=== PATIENT | female | born 1980 | race Caucasian/White ===

== ENCOUNTER → 2018-03-13 09:59 | Outpatient (CLI) | payer OTHER, SELFPAY ==
[2018-03-13 10:26] LABS: Hemoglobin A1C% w Est Avg Glu 8.8 % (4.0-6.0)
[2018-03-13 10:39] LABS: Glucose 152 mg/dL (70-100)
== END ==
PROVIDERS: Visit Provider Family Medicine
DX: R73.01 Impaired fasting glucose (principal)
CPT/HCPCS: 36415; 82947; 83036

== ENCOUNTER → 2018-07-31 13:00 | Outpatient (CLI) | payer OTHER, SELFPAY | DX: Z23 Encounter for immunization (principal) | CPT/HCPCS: 90471; 90686 ==

== ENCOUNTER → 2018-10-05 16:42 | Outpatient (CLI) | payer OTHER, SELFPAY | PROVIDERS: Visit Provider Family Medicine | DX: E11.9 Type 2 diabetes mellitus without complications (principal) | CPT/HCPCS: 36415; 83036 ==

== ENCOUNTER → 2019-06-12 12:50 | Outpatient (CLI) | payer OTHER, MEDICAID, SELFPAY | PROVIDERS: PCP Family Medicine; Visit Provider Physician Assistant | DX: J02.9 Acute pharyngitis, unspecified (principal) | CPT/HCPCS: 87070 ==

== ENCOUNTER → 2019-08-14 11:21 | Outpatient (CLI) | payer OTHER, MEDICAID, SELFPAY ==
[2019-08-14 11:57] LABS: Add Manual Diff / Slide Review NO; Basophils Absolute Auto 100 /uL (0-100); Basophils Percent Auto 0.7 % (0-2); Eosinophils Absolute Auto 100 /uL (0-450); Eosinophils Percent Auto 1.3 % (2-4); Hematocrit 39.9 % (36-46); Hemoglobin 13.4 g/dL (12.0-16.0); Lymphocytes Absolute Auto 2500 /uL (1100-4500); Lymphocytes Percent Auto 25.2 % (25-40); Mean Corpuscular HGB Conc 33.6 % (30-36); Mean Corpuscular Hemoglobin 30.4 PG (26-34); Mean Corpuscular Volume 90.4 fL (80-100); Monocytes Absolute Auto 700 /uL (0-900); Monocytes Percent Auto 6.7 % (3-14); Neutrophils Absolute Auto 6700 /uL (1500-7000); Neutrophils Percent Auto 66.1 % (50-75); Platelet Count 272 X10^3/uL (150-400); Red Blood Cell Count 4.41 X10^6/uL (4.0-5.2); Red Cell Distribution Width 13.9 % (11.6-14.8); White Blood Cell Count 10.1 X10^3/uL (4.5-11.0)
[2019-08-14 12:09] LABS: Hemoglobin A1C% w Est Avg Glu 7.8 % (4.0-6.0)
[2019-08-14 12:15] LABS: Alanine Aminotransferase 27 IU/L (<35); Albumin 4.2 g/dL (3.5-5.0); Albumin Globulin Ratio 1.4 (1.0-2.8); Alkaline Phosphatase 66 U/L (38-126); Aspartate Aminotransferase 44 IU/L (14-36); BUN Creatinine Ratio 13.3 (6-22); Bilirubin Total 0.4 mg/dL (0.2-1.3); Blood Urea Nitrogen 8 mg/dL (7-17); Calcium 9.6 mg/dL (8.4-10.2); Carbon Dioxide 24 mmol/L (22-32); Chloride 105 mmol/L (98-107); Cholesterol 199 mg/dL (140-199); Estimated Glomerular Filt Rate > 60.0 mL/min (>60); Globulin 3.1 g/dL (1.7-4.1); Glucose 162 mg/dL (70-100); HDL Cholesterol 37 mg/dL (40-60); HEMOLYSIS < 15 (0-50); LDL Cholesterol Calculated 115 mg/dL (<100); Sodium 139 mmol/L (137-145); Total Protein 7.3 g/dL (6.3-8.2); Triglycerides 236 mg/dL (35-150)
[2019-08-14 14:00] LABS: TSH w/ Reflex to FT4 3.76 uIU/mL (0.47-4.68)
== END ==
PROVIDERS: PCP Family Medicine; Visit Provider Family Medicine
DX: Z13.6 Encounter for screening for cardiovascular disorders (principal); E11.9 Type 2 diabetes mellitus without complications
CPT/HCPCS: 36415; 80053; 80061; 83036; 84443; 85025

== ENCOUNTER → 2019-11-23 14:05 | Outpatient (CLI) | payer OTHER, MEDICAID, SELFPAY ==
[2019-11-23 14:44] LABS: Hemoglobin A1C% w Est Avg Glu 7.4 % (4.0-6.0)
== END ==
PROVIDERS: PCP Family Medicine; Referring Provider Family Medicine; Visit Provider Family Medicine
DX: E11.9 Type 2 diabetes mellitus without complications (principal)
CPT/HCPCS: 36415; 83036

== ENCOUNTER → 2020-06-26 | Outpatient (CLI) | payer OTHER, MEDICAID, SELFPAY | PROVIDERS: PCP Family Medicine; Referring Provider Internal Medicine; Visit Provider Internal Medicine | DX: Z23 Encounter for immunization (principal) | CPT/HCPCS: 90471; 90686 ==

== ENCOUNTER → 2020-10-01 12:21 | Outpatient (CLI) | payer OTHER, MEDICAID, SELFPAY ==
[2020-10-01] MEDS: COVID-19 VACC(MODERNA-1)/PF 100 MCG/0.5 ML VIAL IM (12:31)
== END ==
PROVIDERS: PCP Family Medicine; Visit Provider Internal Medicine
DX: Z23 Encounter for immunization (principal)
CPT/HCPCS: 0011A; 91301

== ENCOUNTER → 2020-10-02 10:07 | Outpatient (CLI) | payer OTHER, MEDICAID, SELFPAY ==
[2020-10-02 11:28] LABS: Add Manual Diff / Slide Review NO; Basophils Absolute Auto 100 /uL (0-100); Basophils Percent Auto 0.5 % (0-2); Eosinophils Absolute Auto 200 /uL (0-450); Hematocrit 39.9 % (36-46); Hemoglobin 13.3 g/dL (12.0-16.0); Lymphocytes Absolute Auto 3400 /uL (1100-4500); Lymphocytes Percent Auto 27.6 % (25-40); Mean Corpuscular HGB Conc 33.4 % (30-36); Mean Corpuscular Hemoglobin 29.9 PG (26-34); Mean Corpuscular Volume 89.5 fL (80-100); Monocytes Absolute Auto 800 /uL (0-900); Monocytes Percent Auto 6.6 % (3-14); Neutrophils Absolute Auto 7700 /uL (1500-7000); Neutrophils Percent Auto 63.3 % (50-75); Platelet Count 272 X10^3/uL (150-400); Red Blood Cell Count 4.46 X10^6/uL (4.0-5.2); Red Cell Distribution Width 13.1 % (11.6-14.8); White Blood Cell Count 12.1 X10^3/uL (4.5-11.0)
[2020-10-02 11:40] LABS: Hemoglobin A1C% w Est Avg Glu 7.3 % (4.0-6.0)
[2020-10-02 12:37] LABS: BUN Creatinine Ratio 16.3 (6-22); Blood Urea Nitrogen 8 mg/dL (7-17); Calcium 9.1 mg/dL (8.4-10.2); Carbon Dioxide 24 mmol/L (22-32); Chloride 106 mmol/L (98-107); Cholesterol 191 mg/dL (140-199); Estimated Glomerular Filt Rate > 60.0 mL/min (>60); Glucose 151 mg/dL (70-100); HDL Cholesterol 48 mg/dL (40-60); HEMOLYSIS < 15 (0-50); LDL Cholesterol Calculated 99 mg/dL (<100); Potassium 4.2 mmol/L (3.4-5.1); Sodium 136 mmol/L (137-145); Triglycerides 221 mg/dL (35-150)
== END ==
PROVIDERS: PCP Family Medicine; Referring Provider Family Medicine; Visit Provider Family Medicine
DX: E11.9 Type 2 diabetes mellitus without complications (principal); E78.5 Hyperlipidemia, unspecified
CPT/HCPCS: 36415; 80048; 80061; 83036; 85025

== ENCOUNTER → 2020-10-28 09:48 | Outpatient (CLI) | payer OTHER, MEDICAID, SELFPAY ==
[2020-10-28] MEDS: COVID-19 VACC #2, MRNA(MOD) 100 MCG/0.5 ML VIAL IM (09:51)
== END ==
PROVIDERS: PCP Family Medicine; Visit Provider Internal Medicine
DX: Z23 Encounter for immunization (principal)
CPT/HCPCS: 0012A; 91301

== ENCOUNTER → 2020-12-03 15:27 | Outpatient (CLI) | payer OTHER, MEDICAID, SELFPAY ==
--- NOTE | 2020-12-03 15:29 | DI.RAD.S_ITS ---
PROCEDURE: XR KNEE LT 3V INDICATIONS: knee pain TECHNIQUE: 3 views of the knee were acquired. COMPARISON: [facility], , KNEE 1 VIEW BILATERAL, 10/25/2014, 14:33. FINDINGS: Bones: No fractures or dislocations. No suspicious bony lesions. Mild medial compartment narrowing. No erosions or periarticular osteophytes. Overall appearance is similar compared to 2014. Soft tissues: Minimal to mild joint effusion. No suspicious soft tissue calcifications. IMPRESSION: Stable appearance of medial early arthritic change. Dictated by: Aga Monge M.D. on 12/03/2020 at 17:16 Approved by: Aga Monge M.D. on 12/03/2020 at 17:16
== END ==
PROVIDERS: PCP Family Medicine; Referring Provider Family Medicine; Visit Provider Family Medicine
DX: M25.562 Pain in left knee (principal)
CPT/HCPCS: 73562

== ENCOUNTER 2021-01-05 00:04 | Emergency (ER) | payer OTHER, MEDICAID, SELFPAY ==
--- NOTE | 2021-01-05 00:07 | ED.GENADULT ---
HPI - General Adult General Chief complaint: Extremity Injury, Lower Stated complaint: left knee pain hurts to walk Time Seen by Provider: 01/05/21 00:05 Source: patient Mode of arrival: Ambulatory Limitations: no limitations History of Present Illness HPI narrative: Patient is a 40-year-old female with approximately 1 your left knee pain. There was no specific injury caused to start her 1 year ago what was [place] She has seen her primary doctor and has had x-rays in the past for this. She also had a steroid injection 1 month ago by her primary doctor. She is scheduled to see physical therapy on Tuesday of this week for the 1st time. She is here because she states that the pain in her knee has been worsening over the past several weeks. He is difficult for her to sleep at night. She has tried use crutches, Christopher bandages, lidocaine patches, Tylenol, ibuprofen other modalities without any improvement of her symptoms. Related Data Home Medications Medication Instructions Recorded Confirmed CA PANTOTHENATE/FOLIC ACID/VIT 1 tab PO QDAY #0 03/06/13 12/10/20 (MULTIVITAMIN) Calcium Carbonate/Vitamin D 1 tab PO Q DAY #0 03/06/13 12/10/20 (#CALCITAB 600 + VITAMIN D 600 MG-200 IU) LACTOBACILLUS ACIDOPH (Bacid) 1 tab PO QDAY #0 03/06/13 12/10/20 [fish oil] #0 06/27/17 12/10/20 [magnesium] #0 06/27/17 12/10/20 ascorbic acid 125 mg-collagen, cap PO 12/03/20 12/10/20 hydrolyzed 740 mg capsule glucosam 750 mg-chondroi 100 tab PO 12/03/20 12/10/20 mg-hyalur 1.65 mg-CF borate 108 mg tablet Previous Rx's Medication Instructions Recorded blood-glucose meter #1 each 03/13/18 blood sugar diagnostic #50 each 05/01/18 lancets 33 gauge #100 each 06/15/18 levonorgestrel 0.15 mg-ethinyl 1 tab PO DAILY #112 tab 12/17/19 estradiol 0.03 mg tablet metformin 500 mg tablet,extended 1,000 mg PO QPM #60 tab 08/11/20 release 24 hr glyburide 5 mg tablet 5 mg PO BID #60 tab 09/22/20 citalopram 20 mg tablet 30 mg PO QDAY #45 tab 01/02/21 tramadol [Ultram] 50 mg PO Q6H PRN #10 tab 01/05/21 Allergies Allergy/AdvReac Type Severity Reaction Status Date / Time clindamycin [CLINDAMYCIN] Allergy Unknown Verified 01/05/21 00:12 sulfamethoxazole Allergy Unknown Verified 01/05/21 00:12 [From ] trimethoprim [From ] Allergy Unknown Verified 01/05/21 00:12 Review of Systems Constitutional Constitutional: Denies fever(s) and Denies headache(s) ENT Ears, Nose, Mouth, and Throat: Denies headache(s) Cardiovascular Cardiovascular: Denies chest pain and Denies dyspnea Respiratory Respiratory: Denies dyspnea Gastrointestinal Gastrointestinal: Denies abdominal pain Musculoskeletal Musculoskeletal: Denies tingling Comments: Left knee pain Integumentary/Breasts Skin/Breast: Denies rash Neurologic Neurologic: Denies headache(s) and Denies tingling Hematologic/Lymphatic On Anticoagulants: No Patient History Medical History Anxiety IBS (irritable bowel syndrome) Surgical History Status post appendectomy (1996) Status post delivery (1997) Status post delivery (2001) Status post cholecystectomy (1997) Family History Father CAD (coronary artery disease) Mother Lung cancer Social History marital status: Smoking Status: Never smoker alcohol intake: current substance use type: does not use Smoking Status: Never smoker Exam Initial Vital Signs Initial Vital Signs: Vital Signs Temperature 97.1 F L 01/05/21 00:12 Pulse Rate 85 01/05/21 00:12 Respiratory Rate 24 01/05/21 00:12 Blood Pressure 180/86 H 01/05/21 00:12 Pulse Oximetry 98 01/05/21 00:12 Const General: comfortable Skin Lesions: no lesions Rashes: no rashes Extrem General: capillary refill normal and No edema Left lower extremity: normal capillary refill and knee Details: normal to inspection and tenderness; no swelling and no deformity; no edema and joint enlargement noted Course Orders Ordered: Discontinued Medications Tramadol HCl (Tramadol 50 Mg Prepack) 1 bottle MISC SEEINSTR ONE Stop: 01/05/21 00:19 Last Admin: 01/05/21 00:24 Dose: 1 bottle Documented by: Vital Signs Vital signs: Vital Signs - 8 hr 01/05/21 00:12 Temperature 97.1 F L Pulse Rate 85 Respiratory Rate 24 Blood Pressure 180/86 H Pulse Oximetry 98 Medical Decision Making [facility] Narrative Medical decision making narrative: Unfortunately little more we can do in the emergency department except try to control her symptoms. I have low suspicion for new fractures. Low suspicion for infection, low suspicion for dislocation. Low suspicion for other inflammation such as gout all of this based on her history and physical exam. Sent home with Ultram for her to use when the symptoms are worsening. Informed her to contact her primary doctor for follow-up and also to keep her appointment with physical therapy later this week. She was given return precautions and follow-up instructions. She expressed understanding and agreement. Discharge Plan Departure Patient Disposition: Home Clinical Impression: Chronic knee pain Qualifiers: Laterality: left Qualified Code(s): M25.562 - Pain in left knee Instructions: How To Perform RICE (Rest, Ice, Compress, Elevate), DI for Patellofemoral Pain Syndrome-Adult, DI for Knee Pain Activity Restrictions/Additional Instructions: Recommend that you keep your appointment with physical therapy starting this week. Also recommend that you may contact with your primary doctor to schedule follow-up appointment it is if her symptoms do not improve you could potentially need further evaluation to include MRI. Prescriptions: New tramadol [Ultram] 50 mg tablet 50 mg PO Q6H PRN (Reason: pain) Qty: 10 RF: 0 No Action Move Free Joint Health 750 mg-100 mg- 1.65 mg-108 mg tablet PO RF: 0 Collagen Plus Vitamin C 125-740 mg capsule PO RF: 0 CA PANTOTHENATE/FOLIC ACID/VIT (MULTIVITAMIN) 1 tab PO QDAY Qty: 0 RF: 0 LACTOBACILLUS ACIDOPH (Bacid) 1 tab PO QDAY Qty: 0 RF: 0 Calcium Carbonate/Vitamin D (#CALCITAB 600 + VITAMIN D 600 MG-200 IU) 1 tab PO Q DAY Qty: 0 RF: 0 [fish oil] Qty: 0 RF: 0 [magnesium] Qty: 0 RF: 0 (DME) blood sugar diagnostic [Blood Glucose Test] strip See Dose Instructions .ROUTE .MEDSUPPLY Qty: 50 RF: 0 (DME) lancets 33 gauge misc See Dose Instructions .ROUTE .MEDSUPPLY Qty: 100 RF: 5 levonorgestrel-ethinyl estrad [Levora-28] 0.15-0.03 mg tablet 1 tab PO DAILY Qty: 112 RF: 3 metformin 500 mg tablet extended release 24 hr 1,000 mg PO QPM Qty: 60 RF: 11 glyburide 5 mg tablet 5 mg PO BID Qty: 60 RF: 11 citalopram [Celexa] 20 mg tablet 30 mg PO QDAY Qty: 45 RF: 11 (DME) blood-glucose meter [Blood Glucose Monitoring] kit See Dose Instructions .ROUTE .MEDSUPPLY Qty: 1 RF: 0 Referrals: Sahil Vieyra MD [Primary Care Provider] -
[2021-01-05 00:12] VITALS: BP 180/86; PULSE 85; RESP 24; TEMP 36.2; O2SAT 98; BMI 50.1
[2021-01-05] MEDS: TRAMADOL 50 MG PREPACK 1 BOTTLE MISC (00:24)
== END 2021-01-05 00:27 | disposition home or self-care (01) ==
PROVIDERS: Emergency Provider Emergency Medicine; Family Provider Family Medicine; PCP Family Medicine
DX: M25.562 Pain in left knee (principal)
CPT/HCPCS: 99281; 99283

== ENCOUNTER 2021-02-26 15:15 | Outpatient (RCR) | payer OTHER, MEDICAID, SELFPAY ==
--- NOTE | 2021-01-07 16:00 | PT.OPPOC ---
Physical, Occupational & Speech Therapy At [facility] Current Diagnoses Other meniscus derangements, unspecified medial meniscus, left knee (01/07/21) Pain in left knee (01/07/21) Stiffness of left knee, not elsewhere classified (01/07/21) Visit Care Team Role Provider Type Sahil Vieyra MD Attending Provider Physician Family Provider Primary Care Provider Referring Provider Specialty: Family Practice Address: [address] [place] [address], [id number] Email: [email or web address] Plan Of Care PT-OP-T Assessment and Plan Start: 01/07/21 17:50 Freq: Status: Active Protocol: Document 01/07/21 15:15 DCW (Rec: 01/09/21 08:37 DCW [id number]) Physical Therapy Assessment Rehab Potential Rehabilitation Potential Fair Evaluation Complexity Number of Personal Factors/Comorbidities 1-2 Number of Body Systems Impaired 3 Clinical Presentation at Evaluation Evolving Impairments Impairments Activity Tolerance,Functional Activities,Functional Mobility ,Gait,Pain,ROM,Soft Tissue Mobility,Strength Goals Three Impairment Pt unable to participating in her usual physical activity of hiking [facility] Goal (LTG) Pt to report ability to hike [place] with no increased knee pain LTG Duration 03/09/21 Two Impairment Knee pain interrupts patient's sleep Intake Clerk Goal (LTG) Pt to sleep through the night for one week straight with no knee pain LTG Duration 03/09/21 One Impairment Pt does not have an appropriate home exercise program Short Term Goal (STG) Pt to be independent and compliant with an appropriate HEP STG Duration 02/06/21 Assessment Summary Assessment Pt presents with signs and symptoms that may be suggestive of left medial meniscus derangement. Pt has positive special testing for meniscus involvement, including Apprehension test, Holger test, and Apley's compression, and Bounce home test. Pt may benefit from skilled therapy focusing on strengthening to improve knee stability, as well as flexibility, pain-control modalities, and STM. If pt does not show improvement over the next 4-6 weeks, may want to consider MRI to rule in or rule out meniscal damage. Physical Therapy Plan Frequency and Duration Frequency of Treatment 2x/Week Duration of Treatment Two months Plan of Care Start Date 01/07/21 Plan of Care End Date 03/09/21 Therapeutic Interventions Therapeutic Interventions Aquatic Therapy,Balance Training,Gait Training,Home Exercise Program,Manual Therapy,Patient/Caregiver Education,Self-Care/Home Management,Soft Tissue Mobilization,Therapeutic Exercises Modalities Cold Pack/Ice Massage,Electric Stimulation,Hot Packs, Ultrasound Next Visit Focus/Plan Next Note Type Treatment Note Next Visit Plan Knee strengthening, pain- control modalities, STM Plan of Care Dates Plan of Care Start Date 01/07/21 Plan of Care End Date 03/09/21 Electronically Signed by: Osman Byrd, PT 01/09/21 0839 Please Sign and Return: I have reviewed this Plan of Care and certify that the skilled therapy services above are required to meet the patient?s needs. Physician Signature Date Printed Name and Credentials Clinical Instructor Signature Printed Name and Credentials
--- NOTE | 2021-01-07 16:00 | PT.OIE ---
Current Diagnoses Other meniscus derangements, unspecified medial meniscus, left knee (01/07/21) Pain in left knee (01/07/21) Stiffness of left knee, not elsewhere classified (01/07/21) Past Medical History (Last Reviewed 01/05/21 @ 00:43 by Ravi Gupta DO) Anxiety IBS (irritable bowel syndrome) Past Surgical History (Last Reviewed 03/13/18 @ 15:52 by Melonie Kaiser LPN) Status post appendectomy (1996) Status post delivery (1997) Status post delivery (2001) Status post cholecystectomy (1997) Visit Care Team Role Provider Type Sahil Vieyra MD Attending Provider Physician Family Provider Primary Care Provider Referring Provider Specialty: Family Practice Address: [address] [place] [address] Email: [email or web address] Physical Therapy Initial Evaluation PT-OP-A Visit Information Start: 01/07/21 17:50 Freq: Status: Active Protocol: Document 01/07/21 15:15 DCW (Rec: 01/07/21 17:51 DCW [id number]) Out-Patient Physical Therapy Visit Information Visit Information Visit Type Initial Evaluation Visit Start Time 15:15 Visit Stop Time 16:00 Total Visit Minutes 45 Visit Number 1 Number of COPER HAND Visits 0 Evaluation Information Evaluation Date 01/07/21 PT-OP-B Current Condition Start: 01/07/21 17:50 Freq: Status: Active Protocol: Document 01/07/21 15:15 DCW (Rec: 01/08/21 15:08 DCW [id number]) Current Condition History of Current Condition Onset Date 04/07/20 Current Complaints left knee pain, stiffness History of Current Condition Pt is a 40 year old female presenting with a nine month history of left knee pain. Pt reports last March, she [place], and her knee just suddenly began to hurt. Notes she was unable to put any weight on it, and couldn't take and normal steps. Over the next few months, the pain just varied a lot, some good days, some bad, until she finally decided to get it looked at two months ago. Pt has been using rest, ice, compression, and elevation to help reduce her pain, and she had to cancel an upcoming hiking trip that she was really looking forward to. Two days ago, pt notes the pain was so bad it was interrupting her sleep, and she had to go to the emergency department. Admits today is a good day. Pt is very specific in that the worst pain is located directly at the joint line medial of her patella. PT-OP-C Subjective Start: 01/07/21 17:50 Freq: Status: Active Protocol: Document 01/07/21 15:15 DCW (Rec: 01/07/21 17:54 DCW [id number]) OP-PT Subjective Patient Comments Patient Comments Itkept getting better and worse over time, but finally two months ago, I just decided 'this really sucks,' and decided I needed to go in and get it checked out. Patient Questionnaires Lower Extremity Functional Scale LEFS Score 31/80 = 38.75 LEFS Impairment 60 to 79% Impaired (Score 17- 31) OP-PT Pain Assessment Location Left Knee Intensity 5 Scale Used Numeric (0 - 10) Variations/Patterns At worst up to 8/10 PT-OP-F Manual Assessment Start: 01/07/21 17:50 Freq: Status: Active Protocol: Document 01/07/21 15:15 DCW (Rec: 01/08/21 17:43 DCW [id number]) Manual Assessments Soft Tissue Assessment Soft Tissue Mobility Assessment Tenderness 3/4: Wincing and withdraw along medial joint line Joint Mobility Assessment Joint Mobility Assessment Pt shows some mild increased laxity bilaterally with varus/ valgus stress. PT-OP-K Range of Motion Start: 01/07/21 17:50 Freq: Status: Active Protocol: Document 01/07/21 15:15 DCW (Rec: 01/08/21 17:43 DCW [id number]) Knee Goniometric Range of Motion Knee Right Knee ROM WFL Yes Patient Position Supine Flexion Active (degrees) 125 Extension Active (degrees) 0 Left Knee ROM WFL No Patient Position Supine Flexion Active (degrees) 110 Extension Active (degrees) 0 PT-OP-L Special Tests Start: 01/07/21 17:50 Freq: Status: Active Protocol: Document 01/07/21 15:15 DCW (Rec: 01/08/21 17:46 DCW [id number]) Special Tests Knee Special Tests Varus- 0 Degrees Test Results Mild increased laxity bilaterally Valgus- 0 Degrees Test Results Mild increased laxity bilaterally Posterior Draw Test Results Negative Patellar Grind Test Test Results Negative Patella Tap Test Results Negative Holegr Test Test Results Positive Left Bounce Home Test Results Positive Left Apprehension Test Test Results Positive Left Apley's Compression Test Results Strongly Positive Left Anterior Draw Test Results Negative PT-OP-M Strength Start: 01/07/21 17:50 Freq: Status: Active Protocol: Document 01/07/21 15:15 DCW (Rec: 01/08/21 17:46 DCW [id number]) Knee Strength Knee Manual Muscle Testing Left Flexion (S2) 4+ Good+ Extension (L3) 4+ Good+ Comments Pt displayed pain reaction with resisted flexion and extension for MMT PT-OP-T Assessment and Plan Start: 01/07/21 17:50 Freq: Status: Active Protocol: Document 01/07/21 15:15 DCW (Rec: 01/09/21 08:37 DCW [id number]) Physical Therapy Assessment Rehab Potential Rehabilitation Potential Fair Evaluation Complexity Number of Personal Factors/Comorbidities 1-2 Number of Body Systems Impaired 3 Clinical Presentation at Evaluation Evolving Impairments Impairments Activity Tolerance,Functional Activities,Functional Mobility ,Gait,Pain,ROM,Soft Tissue Mobility,Strength Goals Three Impairment Pt unable to participating in her usual physical activity of hiking Assisted Goal (LTG) Pt to report ability to hike [place] with no increased knee pain LTG Duration 03/09/21 Two Impairment Knee pain interrupts patient's sleep Assisted Goal (LTG) Pt to sleep through the night for one week straight with no knee pain LTG Duration 03/09/21 One Impairment Pt does not have an appropriate home exercise program Short Term Goal (STG) Pt to be independent and compliant with an appropriate HEP STG Duration 02/06/21 Assessment Summary Assessment Pt presents with signs and symptoms that may be suggestive of left medial meniscus derangement. Pt has positive special testing for meniscus involvement, including Apprehension test, Holger test, and Apley's compression, and Bounce home test. Pt may benefit from skilled therapy focusing on strengthening to improve knee stability, as well as flexibility, pain-control modalities, and STM. If pt does not show improvement over the next 4-6 weeks, may want to consider MRI to rule in or rule out meniscal damage. Physical Therapy Plan Frequency and Duration Frequency of Treatment 2x/Week Duration of Treatment Two months Plan of Care Start Date 01/07/21 Plan of Care End Date 03/09/21 Therapeutic Interventions Therapeutic Interventions Aquatic Therapy,Balance Training,Gait Training,Home Exercise Program,Manual Therapy,Patient/Caregiver Education,Self-Care/Home Management,Soft Tissue Mobilization,Therapeutic Exercises Modalities Cold Pack/Ice Massage,Electric Stimulation,Hot Packs, Ultrasound Next Visit Focus/Plan Next Note Type Treatment Note Next Visit Plan Knee strengthening, pain- control modalities, STM
--- NOTE | 2021-01-12 17:32 | PT.OTN ---
Current Diagnoses Other meniscus derangements, unspecified medial meniscus, left knee (01/12/21) Pain in left knee (01/12/21) Stiffness of left knee, not elsewhere classified (01/12/21) Physical Therapy Treatment Note PT-OP-A Visit Information Start: 01/07/21 17:50 Freq: Status: Active Protocol: Document 01/12/21 16:49 DCW (Rec: 01/12/21 17:32 DCW [id number]) Out-Patient Physical Therapy Visit Information Visit Information Visit Type Treatment Note Visit Start Time 16:49 Visit Stop Time 17:30 Total Visit Minutes 41 Visit Number 2 Number of CUSTODIAL SUPERVISOR Visits 0 Evaluation Information Evaluation Date 01/07/21 PT-OP-B Current Condition Start: 01/07/21 17:50 Freq: Status: Active Protocol: Document 01/07/21 15:15 DCW (Rec: 01/08/21 15:08 DCW [id number]) Current Condition History of Current Condition Onset Date 04/07/20 Current Complaints left knee pain, stiffness History of Current Condition Pt is a 40 year old female presenting with a nine month history of left knee pain. Pt reports last March, she was walking [place] the [place], and her knee just suddenly began to hurt. Notes she was unable to put any weight on it, and couldn't take and normal steps. Over the next few months, the pain just varied a lot, some good days, some bad, until she finally decided to get it looked at two months ago. Pt has been using rest, ice, compression, and elevation to help reduce her pain, and she had to cancel an upcoming hiking trip that she was really looking forward to. Two days ago, pt notes the pain was so bad it was interrupting her sleep, and she had to go to the emergency department. Admits today is a good day. Pt is very specific in that the worst pain is located directly at the joint line medial of her patella. PT-OP-C Subjective Start: 01/07/21 17:50 Freq: Status: Active Protocol: Document 01/12/21 16:49 DCW (Rec: 01/12/21 17:32 DCW [id number]) OP-PT Subjective Patient Comments Patient Comments Today is another good day. This weekend was not good, so I expected today to be not good, but it feels alright. PT-OP-F Manual Assessment Start: 01/07/21 17:50 Freq: Status: Active Protocol: Document 01/07/21 15:15 DCW (Rec: 01/08/21 17:43 DCW [id number]) Manual Assessments Soft Tissue Assessment Soft Tissue Mobility Assessment Tenderness 3/4: Wincing and withdraw along medial joint line Joint Mobility Assessment Joint Mobility Assessment Pt shows some mild increased laxity bilaterally with varus/ valgus stress. PT-OP-K Range of Motion Start: 01/07/21 17:50 Freq: Status: Active Protocol: Document 01/07/21 15:15 DCW (Rec: 01/08/21 17:43 DCW [id number]) Knee Goniometric Range of Motion Knee Right Knee ROM WFL Yes Patient Position Supine Flexion Active (degrees) 125 Extension Active (degrees) 0 Left Knee ROM WFL No Patient Position Supine Flexion Active (degrees) 110 Extension Active (degrees) 0 PT-OP-L Special Tests Start: 01/07/21 17:50 Freq: Status: Active Protocol: Document 01/07/21 15:15 DCW (Rec: 01/08/21 17:46 DCW [id number]) Special Tests Knee Special Tests Varus- 0 Degrees Test Results Mild increased laxity bilaterally Valgus- 0 Degrees Test Results Mild increased laxity bilaterally Posterior Draw Test Results Negative Patellar Grind Test Test Results Negative Patella Tap Test Results Negative Holger Test Test Results Positive Left Bounce Home Test Results Positive Left Apprehension Test Test Results Positive Left Apley's Compression Test Results Strongly Positive Left Anterior Draw Test Results Negative PT-OP-M Strength Start: 01/07/21 17:50 Freq: Status: Active Protocol: Document 01/07/21 15:15 DCW (Rec: 01/08/21 17:46 DCW [id number]) Knee Strength Knee Manual Muscle Testing Left Flexion (S2) 4+ Good+ Extension (L3) 4+ Good+ Comments Pt displayed pain reaction with resisted flexion and extension for MMT PT-OP-Q Treatments Start: 01/07/21 17:50 Freq: Status: Active Protocol: Document 01/12/21 16:49 DCW (Rec: 01/12/21 17:32 DCW [id number]) Cardio Equipment Recumbent Elliptical (Biodex) Duration (Minutes) 1 Resistance 3 Seat Position 5 Other Stopped d/t knee pain Gym Equipment Shuttle Recovery Unilateral Squats Resistance 25# Bilateral Squats Resistance 50#->62# Therapeutic Exercises Supine Exercises 1 Supine Exercise Name SLR Side left Reps/Minutes x10 Sitting Exercises 2 Sitting Exercise Name Hamstring curls Side bilateral Resistance Lv 2 Equipment Used T-band 1 Sitting Exercise Name LAQ Side bilateral Resistance 5# Standing Exercises 2 Standing Exercise Name Step lunge Side bilateral 1 Standing Exercise Name TKE Side bilateral Resistance Lv 2 Equipment Used T-band Manual Therapy Treatment Taping 1 Body Location Medial knee Treatment Focus Joint stabilization Type of Tape Kinesio Tape Comments Star pattern PT-OP-T Assessment and Plan Start: 01/07/21 17:50 Freq: Status: Active Protocol: Document 01/12/21 16:49 DCW (Rec: 01/12/21 17:32 DCW [id number]) Physical Therapy Assessment Impairments Impairments Activity Tolerance,Functional Activities,Functional Mobility ,Gait,Pain,ROM,Soft Tissue Mobility,Strength Goals Three Impairment Pt unable to participating in her usual physical activity of hiking Workforce Development Specialist Goal (LTG) Pt to report ability to hike [place] with no increased knee pain LTG Duration 03/09/21 Two Impairment Knee pain interrupts patient's sleep Workforce Development Specialist Goal (LTG) Pt to sleep through the night for one week straight with no knee pain LTG Duration 03/09/21 One Impairment Pt does not have an appropriate home exercise program Short Term Goal (STG) Pt to be independent and compliant with an appropriate HEP STG Duration 02/06/21 Assessment Summary Assessment Pt had to stop a few different exercise attempts due to knee popping/pain. Fairly restricted with mobility, having some ongoing pain with most mobility. Trial of k-tape to help support medial knee. Physical Therapy Plan Frequency and Duration Frequency of Treatment 2x/Week Duration of Treatment Two months Plan of Care Start Date 01/07/21 Plan of Care End Date 03/09/21 Therapeutic Interventions Therapeutic Interventions Aquatic Therapy,Balance Training,Gait Training,Home Exercise Program,Manual Therapy,Patient/Caregiver Education,Self-Care/Home Management,Soft Tissue Mobilization,Therapeutic Exercises Modalities Cold Pack/Ice Massage,Electric Stimulation,Hot Packs, Ultrasound Next Visit Focus/Plan Next Note Type Treatment Note Next Visit Plan Knee strengthening, pain- control modalities, STM
--- NOTE | 2021-01-14 15:57 | PT.OTN ---
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 Pt reports last March, [place], and her knee just suddenly began to hurt. Notes she was unable to put any weight on it, and couldn't take and normal steps. Over the next few months, the pain just varied a lot, some good days, some bad, until she finally decided to get it looked at two months ago. Pt has been using rest, ice, compression, and elevation to help reduce her pain, and she had to cancel an upcoming hiking trip that she was really looking forward to. Two days ago, pt notes the pain was so bad it was interrupting her sleep, and she had to go to the emergency department. Admits today is a good day. Pt is very specific in that the worst pain is located directly at the joint line medial of her patella. PT-OP-C Subjective Start: 01/07/21 17:50 Freq: Status: Active Protocol: Document 01/14/21 15:15 DCW (Rec: 01/14/21 15:57 DCW [id number]) OP-PT Subjective Patient Comments Patient Comments Pt feels like crap today, notes she went for a very short~ 5-6 block walk yesterday, which really bothered her knee, and today she had her knee give out for the first time. PT-OP-F Manual Assessment Start: 01/07/21 17:50 Freq: Status: Active Protocol: Document 01/07/21 15:15 DCW (Rec: 01/08/21 17:43 DCW [id number]) Manual Assessments Soft Tissue Assessment Soft Tissue Mobility Assessment Tenderness 3/4: Wincing and withdraw along medial joint line Joint Mobility Assessment Joint Mobility Assessment Pt shows some mild increased laxity bilaterally with varus/ valgus stress. PT-OP-K Range of Motion Start: 01/07/21 17:50 Freq: Status: Active Protocol: Document 01/07/21 15:15 DCW (Rec: 01/08/21 17:43 DCW [id number]) Knee Goniometric Range of Motion Knee Right Knee ROM WFL Yes Patient Position Supine Flexion Active (degrees) 125 Extension Active (degrees) 0 Left Knee ROM WFL No Patient Position Supine Flexion Active (degrees) 110 Extension Active (degrees) 0 PT-OP-L Special Tests Start: 01/07/21 17:50 Freq: Status: Active Protocol: Document 01/07/21 15:15 DCW (Rec: 01/08/21 17:46 DCW [id number]) Special Tests Knee Special Tests Varus- 0 Degrees Test Results Mild increased laxity bilaterally Valgus- 0 Degrees Test Results Mild increased laxity bilaterally Posterior Draw Test Results Negative Patellar Grind Test Test Results Negative Patella Tap Test Results Negative Holger Test Test Results Positive Left Bounce Home Test Results Positive Left Apprehension Test Test Results Positive Left Apley's Compression Test Results Strongly Positive Left Anterior Draw Test Results Negative PT-OP-M Strength Start: 01/07/21 17:50 Freq: Status: Active Protocol: Document 01/07/21 15:15 DCW (Rec: 01/08/21 17:46 DCW [id number]) Knee Strength Knee Manual Muscle Testing Left Flexion (S2) 4+ Good+ Extension (L3) 4+ Good+ Comments Pt displayed pain reaction with resisted flexion and extension for MMT PT-OP-Q Treatments Start: 01/07/21 17:50 Freq: Status: Active Protocol: Document 01/14/21 15:15 DCW (Rec: 01/14/21 15:57 DCW [id number]) Gym Equipment Shuttle Recovery Unilateral Squats Resistance 25# Bilateral Squats Resistance 62# Therapeutic Exercises Supine Exercises 2 Supine Exercise Name Bridging /c add ball squeeze Sitting Exercises 2 Sitting Exercise Name Hamstring curls Side bilateral Resistance Lv 2 Equipment Used T-band 1 Sitting Exercise Name LAQ Side bilateral Resistance 5# Standing Exercises 3 Standing Exercise Name Hip Extension Side bilateral Resistance Lv 3 Equipment Used T-band 2 Standing Exercise Name Step lunge Side bilateral 1 Standing Exercise Name TKE Side bilateral Resistance Lv 3 Equipment Used T-band PT-OP-R Modalities Start: 01/07/21 17:50 Freq: Status: Active Protocol: Document 01/14/21 15:15 DCW (Rec: 01/14/21 15:57 DCW [id number]) Electric Stimulation Electric Stimulation Interferential Current (IFC) Body Location Left knee Duration (Minutes) 15 Cycle Continuous Patient Position Hooklying Combined With Heat/Cold Cold Pack PT-OP-T Assessment and Plan Start: 01/07/21 17:50 Freq: Status: Active Protocol: Document 01/14/21 15:15 DCW (Rec: 01/14/21 15:57 DCW [id number]) Physical Therapy Assessment Impairments Impairments Activity Tolerance,Functional Activities,Functional Mobility ,Gait,Pain,ROM,Soft Tissue Mobility,Strength Goals Three Impairment Pt unable to participating in her usual physical activity of hiking [employer] Goal (LTG) Pt to report ability to hike [place] with no increased knee pain LTG Duration 03/09/21 Two Impairment Knee pain interrupts patient's sleep 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 Pt severely limited with participation today, ended with trial of e-stim and ice in hopes to decrease pain. Physical Therapy Plan Frequency and Duration Frequency of Treatment 2x/Week Duration of Treatment Two months Plan of Care Start Date 01/07/21 Plan of Care End Date 03/09/21 Therapeutic Interventions Therapeutic Interventions Aquatic Therapy,Balance Training,Gait Training,Home Exercise Program,Manual Therapy,Patient/Caregiver Education,Self-Care/Home Management,Soft Tissue Mobilization,Therapeutic Exercises Modalities Cold Pack/Ice Massage,Electric Stimulation,Hot Packs, Ultrasound Next Visit Focus/Plan Next Note Type Treatment Note Next Visit Plan Knee strengthening, pain- control modalities, STM
--- NOTE | 2021-01-22 11:58 | PT.OTN ---
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 Pt reports last March, she [place], and her knee just suddenly began to hurt. Notes she was unable to put any weight on it, and couldn't take and normal steps. Over the next few months, the pain just varied a lot, some good days, some bad, until she finally decided to get it looked at two months ago. Pt has been using rest, ice, compression, and elevation to help reduce her pain, and she had to cancel an upcoming hiking trip that she was really looking forward to. Two days ago, pt notes the pain was so bad it was interrupting her sleep, and she had to go to the emergency department. Admits today is a good day. Pt is very specific in that the worst pain is located directly at the joint line medial of her patella. PT-OP-C Subjective Start: 01/07/21 17:50 Freq: Status: Active Protocol: Document 01/22/21 11:15 DCW (Rec: 01/22/21 11:57 DCW [id number]) OP-PT Subjective Patient Comments Patient Comments Today they're feeling good, the last few days were very restful. PT-OP-F Manual Assessment Start: 01/07/21 17:50 Freq: Status: Active Protocol: Document 01/07/21 15:15 DCW (Rec: 01/08/21 17:43 DCW [id number]) Manual Assessments Soft Tissue Assessment Soft Tissue Mobility Assessment Tenderness 3/4: Wincing and withdraw along medial joint line Joint Mobility Assessment Joint Mobility Assessment Pt shows some mild increased laxity bilaterally with varus/ valgus stress. PT-OP-K Range of Motion Start: 01/07/21 17:50 Freq: Status: Active Protocol: Document 01/07/21 15:15 DCW (Rec: 01/08/21 17:43 DCW [id number]) Knee Goniometric Range of Motion Knee Right Knee ROM WFL Yes Patient Position Supine Flexion Active (degrees) 125 Extension Active (degrees) 0 Left Knee ROM WFL No Patient Position Supine Flexion Active (degrees) 110 Extension Active (degrees) 0 PT-OP-L Special Tests Start: 01/07/21 17:50 Freq: Status: Active Protocol: Document 01/07/21 15:15 DCW (Rec: 01/08/21 17:46 DCW [id number]) Special Tests Knee Special Tests Varus- 0 Degrees Test Results Mild increased laxity bilaterally Valgus- 0 Degrees Test Results Mild increased laxity bilaterally Posterior Draw Test Results Negative Patellar Grind Test Test Results Negative Patella Tap Test Results Negative Holger Test Test Results Positive Left Bounce Home Test Results Positive Left Apprehension Test Test Results Positive Left Apley's Compression Test Results Strongly Positive Left Anterior Draw Test Results Negative PT-OP-M Strength Start: 01/07/21 17:50 Freq: Status: Active Protocol: Document 01/07/21 15:15 DCW (Rec: 01/08/21 17:46 DCW [id number]) Knee Strength Knee Manual Muscle Testing Left Flexion (S2) 4+ Good+ Extension (L3) 4+ Good+ Comments Pt displayed pain reaction with resisted flexion and extension for MMT PT-OP-Q Treatments Start: 01/07/21 17:50 Freq: Status: Active Protocol: Document 01/22/21 11:15 DCW (Rec: 01/22/21 11:57 DCW [id number]) Gym Equipment Shuttle Recovery Unilateral Squats Resistance 37# Bilateral Squats Resistance 62# Therapeutic Exercises Standing Exercises 4 Standing Exercise Name Hip Extension Side bilateral Resistance Lv 3 Equipment Used T-band 3 Standing Exercise Name Hip Extension Side bilateral Resistance Lv 3 Equipment Used T-band 2 Standing Exercise Name Step lunge Side bilateral 1 Standing Exercise Name TKE Side bilateral Resistance Lv 3 Equipment Used T-band Other Exercises 2 Other Exercise Name Step ups/downs Equipment Used 4 step 1 Other Exercise Name Resisted side-stepping Resistance Green Equipment Used T-band Manual Therapy Treatment Joint Mobilizations 1 Joint L Patella mobs Direction all directions Grade II Body Position Supine PT-OP-R Modalities Start: 01/07/21 17:50 Freq: Status: Active Protocol: Document 01/22/21 11:15 DCW (Rec: 01/22/21 11:57 DCW [id number]) Electric Stimulation Electric Stimulation Interferential Current (IFC) Body Location Left knee Duration (Minutes) 15 Cycle Continuous Patient Position Hooklying Combined With Heat/Cold Cold Pack PT-OP-T Assessment and Plan Start: 01/07/21 17:50 Freq: Status: Active Protocol: Document 01/22/21 11:15 DCW (Rec: 01/22/21 11:57 DCW [id number]) Physical Therapy Assessment Impairments Impairments Activity Tolerance,Functional Activities,Functional Mobility ,Gait,Pain,ROM,Soft Tissue Mobility,Strength Goals Three Impairment Pt unable to participating in her 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 physical activity of 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) Pt to report ability to hike [place] with no increased knee pain LTG Duration 03/09/21 Two Impairment Knee pain interrupts patient's sleep Fish Roe Processor Goal (LTG) Pt to sleep through the night for one week straight with no knee pain LTG Duration 03/09/21 One Impairment Pt does not have an appropriate home exercise program Short Term Goal (STG) Pt to be independent and compliant with an appropriate HEP STG Duration 02/06/21 Assessment Summary Assessment Pt having pain/tenderness with nearly all attempted patellar mobility, especially along medial aspect of anterior knee Physical Therapy Plan Frequency and Duration Frequency of Treatment 2x/Week Duration of Treatment Two months Plan of Care Start Date 01/07/21 Plan of Care End Date 03/09/21 Therapeutic Interventions Therapeutic Interventions Aquatic Therapy,Balance Training,Gait Training,Home Exercise Program,Manual Therapy,Patient/Caregiver Education,Self-Care/Home Management,Soft Tissue Mobilization,Therapeutic Exercises Modalities Cold Pack/Ice Massage,Electric Stimulation,Hot Packs, Ultrasound Next Visit Focus/Plan Next Note Type Treatment Note Next Visit Plan Knee strengthening, pain- control modalities, STM
--- NOTE | 2021-01-26 16:47 | PT.OTN ---
Current Diagnoses Other meniscus derangements, unspecified medial meniscus, left knee (01/26/21) Pain in left knee (01/26/21) Stiffness of left knee, not elsewhere classified (01/26/21) Physical Therapy Treatment Note PT-OP-A Visit Information Start: 01/07/21 17:50 Freq: Status: Active Protocol: Document 01/26/21 16:00 DCW (Rec: 01/26/21 16:47 DCW [id number]) Out-Patient Physical Therapy Visit Information Visit Information Visit Type Treatment Note Visit Start Time 16:00 Visit Stop Time 16:55 Total Visit Minutes 55 Visit Number [address] JUSTICE Visits 0 Evaluation Information Evaluation Date 01/07/21 PT-OP-B Current Condition Start: 01/07/21 17:50 Freq: Status: Active Protocol: Document 01/07/21 15:15 DCW (Rec: 01/08/21 15:08 DCW [id number]) Current Condition History of Current Condition Onset Date 04/07/20 Current Complaints left knee pain, stiffness History of Current Condition Pt is a 40 year old female presenting with a nine month history of left knee pain. Pt reports last March, she [place], and her knee just suddenly began to hurt. Notes she was unable to put any weight on it, and couldn't take and normal steps. Over the next few months, the pain just varied a lot, some good days, some bad, until she finally decided to get it looked at two months ago. Pt has been using rest, ice, compression, and elevation to help reduce her pain, and she had to cancel an upcoming hiking trip that she was really looking forward to. Two days ago, pt notes the pain was so bad it was interrupting her sleep, and she had to go to the emergency department. Admits today is a good day. Pt is very specific in that the worst pain is located directly at the joint line medial of her patella. PT-OP-C Subjective Start: 01/07/21 17:50 Freq: Status: Active Protocol: Document 01/26/21 16:00 DCW (Rec: 01/26/21 16:47 DCW [id number]) OP-PT Subjective Patient Comments Patient Comments It's about 50/50 right now, but I feel that's really good for today, because I decided not to take anything for pain today. PT-OP-F Manual Assessment Start: 01/07/21 17:50 Freq: Status: Active Protocol: Document 01/07/21 15:15 DCW (Rec: 01/08/21 17:43 DCW [id number]) Manual Assessments Soft Tissue Assessment Soft Tissue Mobility Assessment Tenderness 3/4: Wincing and withdraw along medial joint line Joint Mobility Assessment Joint Mobility Assessment Pt shows some mild increased laxity bilaterally with varus/ valgus stress. PT-OP-K Range of Motion Start: 01/07/21 17:50 Freq: Status: Active Protocol: Document 01/07/21 15:15 DCW (Rec: 01/08/21 17:43 DCW [id number]) Knee Goniometric Range of Motion Knee Right Knee ROM WFL Yes Patient Position Supine Flexion Active (degrees) 125 Extension Active (degrees) 0 Left Knee ROM WFL No Patient Position Supine Flexion Active (degrees) 110 Extension Active (degrees) 0 PT-OP-L Special Tests Start: 01/07/21 17:50 Freq: Status: Active Protocol: Document 01/07/21 15:15 DCW (Rec: 01/08/21 17:46 DCW [id number]) Special Tests Knee Special Tests Varus- 0 Degrees Test Results Mild increased laxity bilaterally Valgus- 0 Degrees Test Results Mild increased laxity bilaterally Posterior Draw Test Results Negative Patellar Grind Test Test Results Negative Patella Tap Test Results Negative Holger Test Test Results Positive Left Bounce Home Test Results Positive Left Apprehension Test Test Results Positive Left Apley's Compression Test Results Strongly Positive Left Anterior Draw Test Results Negative PT-OP-M Strength Start: 01/07/21 17:50 Freq: Status: Active Protocol: Document 01/07/21 15:15 DCW (Rec: 01/08/21 17:46 DCW [id number]) Knee Strength Knee Manual Muscle Testing Left Flexion (S2) 4+ Good+ Extension (L3) 4+ Good+ Comments Pt displayed pain reaction with resisted flexion and extension for MMT PT-OP-Q Treatments Start: 01/07/21 17:50 Freq: Status: Active Protocol: Document 01/26/21 16:00 DCW (Rec: 01/26/21 16:47 DCW [id number]) Gym Equipment Shuttle Recovery Unilateral Squats Resistance 37# Bilateral Squats Resistance 75# Therapeutic Exercises Sitting Exercises 2 Sitting Exercise Name Hamstring curls Side bilateral Resistance Lv 2 Equipment Used T-band 1 Sitting Exercise Name LAQ Side bilateral Resistance 5# Standing Exercises 4 Standing Exercise Name Hip Abduction Side bilateral Resistance Lv 3 Equipment Used T-band 3 Standing Exercise Name Hip Extension Side bilateral Resistance Lv 3 Equipment Used T-band 2 Standing Exercise Name Step lunge Side bilateral Equipment Used 6 step 1 Standing Exercise Name TKE Side bilateral Resistance Lv 3 Equipment Used T-band Other Exercises 1 Other Exercise Name Resisted side-stepping Resistance Green Equipment Used T-band Manual Therapy Treatment Joint Mobilizations 1 Joint L Patella mobs Direction all directions Grade II Body Position Supine PT-OP-R Modalities Start: 01/07/21 17:50 Freq: Status: Active Protocol: Document 01/26/21 16:00 DCW (Rec: 01/26/21 16:47 DCW [id number]) Electric Stimulation Electric Stimulation Interferential Current (IFC) Body Location Left knee Duration (Minutes) 15 Cycle Continuous Patient Position Hooklying Combined With Heat/Cold Cold Pack PT-OP-T Assessment and Plan Start: 01/07/21 17:50 Freq: Status: Active Protocol: Document 01/26/21 16:00 DCW (Rec: 01/26/21 16:47 DCW [id number]) Physical Therapy Assessment Impairments Impairments Activity Tolerance,Functional Activities,Functional Mobility ,Gait,Pain,ROM,Soft Tissue Mobility,Strength Goals Three Impairment Pt unable to participating in her usual physical activity of hiking 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) Pt to report ability to hike [place] with no increased knee pain LTG Duration 03/09/21 Two Impairment Knee pain interrupts patient's sleep 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) Pt to sleep through the night for one week straight with no knee pain LTG Duration 03/09/21 One Impairment Pt does not have an appropriate home exercise program Short Term Goal (STG) Pt to be independent and compliant with an appropriate HEP STG Duration 02/06/21 Assessment Summary Assessment Pt still having some overall discomfort with nearly all activities, discussed speaking with PCP next week to inquire about MRI possibility. Physical Therapy Plan Frequency and Duration Frequency of Treatment 2x/Week Duration of Treatment Two months Plan of Care Start Date 01/07/21 Plan of Care End Date 03/09/21 Therapeutic Interventions Therapeutic Interventions Aquatic Therapy,Balance Training,Gait Training,Home Exercise Program,Manual Therapy,Patient/Caregiver Education,Self-Care/Home Management,Soft Tissue Mobilization,Therapeutic Exercises Modalities Cold Pack/Ice Massage,Electric Stimulation,Hot Packs, Ultrasound Next Visit Focus/Plan Next Note Type Treatment Note Next Visit Plan Knee strengthening, pain- control modalities, STM
--- NOTE | 2021-01-28 15:53 | PT.OTN ---
Current Diagnoses Other meniscus derangements, unspecified medial meniscus, left knee (01/28/21) Pain in left knee (01/28/21) Stiffness of left knee, not elsewhere classified (01/28/21) Physical Therapy Treatment Note PT-OP-A Visit Information Start: 01/07/21 17:50 Freq: Status: Active Protocol: Document 01/28/21 15:20 DCW (Rec: 01/28/21 15:52 DCW [id number]) Out-Patient Physical Therapy Visit Information Visit Information Visit Type Treatment Note Visit Start Time 15:20 Visit Stop Time 16:05 Total Visit Minutes 45 Visit Number 6 Number of CARDIOLOGY CONSULTANTS Visits 0 Evaluation Information Evaluation Date 01/07/21 PT-OP-B Current Condition Start: 01/07/21 17:50 Freq: Status: Active Protocol: Document 01/07/21 15:15 DCW (Rec: 01/08/21 15:08 DCW [id number]) Current Condition History of Current Condition Onset Date 04/07/20 Current Complaints left knee pain, stiffness History of Current Condition Pt is a 40 year old female presenting with a nine month history of left knee pain. Pt reports last March, [place], and her knee just suddenly began to hurt. Notes she was unable to put any weight on it, and couldn't take and normal steps. Over the next few months, the pain just varied a lot, some good days, some bad, until she finally decided to get it looked at two months ago. Pt has been using rest, ice, compression, and elevation to help reduce her pain, and she had to cancel an upcoming hiking trip that she was really looking forward to. Two days ago, pt notes the pain was so bad it was interrupting her sleep, and she had to go to the emergency department. Admits today is a good day. Pt is very specific in that the worst pain is located directly at the joint line medial of her patella. PT-OP-C Subjective Start: 01/07/21 17:50 Freq: Status: Active Protocol: Document 01/28/21 15:20 DCW (Rec: 01/28/21 15:52 DCW [id number]) OP-PT Subjective Patient Comments Patient Comments Today is a BAD day. Pt thinks it might be due to walking with her dog yesterday . PT-OP-F Manual Assessment Start: 01/07/21 17:50 Freq: Status: Active Protocol: Document 01/07/21 15:15 DCW (Rec: 01/08/21 17:43 DCW [id number]) Manual Assessments Soft Tissue Assessment Soft Tissue Mobility Assessment Tenderness 3/4: Wincing and withdraw along medial joint line Joint Mobility Assessment Joint Mobility Assessment Pt shows some mild increased laxity bilaterally with varus/ valgus stress. PT-OP-K Range of Motion Start: 01/07/21 17:50 Freq: Status: Active Protocol: Document 01/07/21 15:15 DCW (Rec: 01/08/21 17:43 DCW [id number]) Knee Goniometric Range of Motion Knee Right Knee ROM WFL Yes Patient Position Supine Flexion Active (degrees) 125 Extension Active (degrees) 0 Left Knee ROM WFL No Patient Position Supine Flexion Active (degrees) 110 Extension Active (degrees) 0 PT-OP-L Special Tests Start: 01/07/21 17:50 Freq: Status: Active Protocol: Document 01/07/21 15:15 DCW (Rec: 01/08/21 17:46 DCW [id number]) Special Tests Knee Special Tests Varus- 0 Degrees Test Results Mild increased laxity bilaterally Valgus- 0 Degrees Test Results Mild increased laxity bilaterally Posterior Draw Test Results Negative Patellar Grind Test Test Results Negative Patella Tap Test Results Negative Holger Test Test Results Positive Left Bounce Home Test Results Positive Left Apprehension Test Test Results Positive Left Apley's Compression Test Results Strongly Positive Left Anterior Draw Test Results Negative PT-OP-M Strength Start: 01/07/21 17:50 Freq: Status: Active Protocol: Document 01/07/21 15:15 DCW (Rec: 01/08/21 17:46 DCW [id number]) Knee Strength Knee Manual Muscle Testing Left Flexion (S2) 4+ Good+ Extension (L3) 4+ Good+ Comments Pt displayed pain reaction with resisted flexion and extension for MMT PT-OP-Q Treatments Start: 01/07/21 17:50 Freq: Status: Active Protocol: Document 01/28/21 15:20 DCW (Rec: 01/28/21 15:52 DCW [id number]) Gym Equipment Shuttle Recovery Unilateral Squats Resistance 37# Bilateral Squats Resistance 75# Therapeutic Exercises Standing Exercises 4 Standing Exercise Name Hip Abduction Side bilateral Resistance Lv 3 Equipment Used T-band 3 Standing Exercise Name Hip Extension Side bilateral Resistance Lv 3 Equipment Used T-band 2 Standing Exercise Name Step lunge Side bilateral Equipment Used 6 step 1 Standing Exercise Name TKE Side bilateral Resistance Lv 3 Equipment Used T-band Manual Therapy Treatment Joint Mobilizations 1 Joint L Patella mobs Direction all directions Grade II Body Position Supine PT-OP-R Modalities Start: 01/07/21 17:50 Freq: Status: Active Protocol: Document 01/28/21 15:20 DCW (Rec: 01/28/21 15:52 DCW [id number]) Electric Stimulation Electric Stimulation Interferential Current (IFC) Body Location Left knee Duration (Minutes) 15 Cycle Continuous Patient Position Hooklying Combined With Heat/Cold Cold Pack PT-OP-T Assessment and Plan Start: 01/07/21 17:50 Freq: Status: Active Protocol: Document 01/28/21 15:20 DCW (Rec: 01/28/21 15:52 DCW [id number]) Physical Therapy Assessment Impairments Impairments Activity Tolerance,Functional Activities,Functional Mobility ,Gait,Pain,ROM,Soft Tissue Mobility,Strength Goals Three Impairment Pt unable to participating in her usual physical activity of hiking [employer] Goal (LTG) Pt to report ability to hike [place] with no increased knee pain LTG Duration 03/09/21 Two Impairment Knee pain interrupts patient's sleep [employer] Plate Grainer Goal (LTG) Pt to sleep through the night for one week straight with no knee pain LTG Duration 03/09/21 One Impairment Pt does not have an appropriate home exercise program Short Term Goal (STG) Pt to be independent and compliant with an appropriate HEP STG Duration 02/06/21 Assessment Summary Assessment Pt very limited today due to pain, unable to fully participate in all activities due to pain. Again discussed pt contacting PCP for possible imaging. Physical Therapy Plan Frequency and Duration Frequency of Treatment 2x/Week Duration of Treatment Two months Plan of Care Start Date 01/07/21 Plan of Care End Date 03/09/21 Therapeutic Interventions Therapeutic Interventions Aquatic Therapy,Balance Training,Gait Training,Home Exercise Program,Manual Therapy,Patient/Caregiver Education,Self-Care/Home Management,Soft Tissue Mobilization,Therapeutic Exercises Modalities Cold Pack/Ice Massage,Electric Stimulation,Hot Packs, Ultrasound Next Visit Focus/Plan Next Note Type Treatment Note Next Visit Plan Knee strengthening, pain- control modalities, STM
--- NOTE | 2021-02-04 15:56 | PT.OTN ---
Current Diagnoses Other meniscus derangements, unspecified medial meniscus, left knee (02/04/21) Pain in left knee (02/04/21) Stiffness of left knee, not elsewhere classified (02/04/21) Physical Therapy Treatment Note PT-OP-A Visit Information Start: 01/07/21 17:50 Freq: Status: Active Protocol: Document 02/04/21 15:15 DCW (Rec: 02/04/21 15:56 DCW [id number]) Out-Patient Physical Therapy Visit Information Visit Information Visit Type Treatment Note Visit Start Time 15:15 Visit Stop Time 16:00 Total Visit Minutes 45 Visit Number 7 Number of ELECTRICAL ASSEMBLY SUPERVISOR Visits 0 Evaluation Information Evaluation Date 01/07/21 PT-OP-B Current Condition Start: 01/07/21 17:50 Freq: Status: Active Protocol: Document 01/07/21 15:15 DCW (Rec: 01/08/21 15:08 DCW [id number]) Current Condition History of Current Condition Onset Date 04/07/20 Current Complaints left knee pain, stiffness History of Current Condition Pt is a 40 year old female presenting with a nine month history of left knee pain. Pt reports last March, she [place], and her knee just suddenly began to hurt. Notes she was unable to put any weight on it, and couldn't take and normal steps. Over the next few months, the pain just varied a lot, some good days, some bad, until she finally decided to get it looked at two months ago. Pt has been using rest, ice, compression, and elevation to help reduce her pain, and she had to cancel an upcoming hiking trip that she was really looking forward to. Two days ago, pt notes the pain was so bad it was interrupting her sleep, and she had to go to the emergency department. Admits today is a good day. Pt is very specific in that the worst pain is located directly at the joint line medial of her patella. PT-OP-C Subjective Start: 01/07/21 17:50 Freq: Status: Active Protocol: Document 02/04/21 15:15 DCW (Rec: 02/04/21 15:56 DCW [id number]) OP-PT Subjective Patient Comments Patient Comments Pt reports Tuesday was the worst I've felt since this has happened. Pt notes she has not gotten a referral to an orthopedic surgeon, a referral for an MRI, and new pain medications, which is probably the only reason I'm up and around today. PT-OP-F Manual Assessment Start: 01/07/21 17:50 Freq: Status: Active Protocol: Document 01/07/21 15:15 DCW (Rec: 01/08/21 17:43 DCW [id number]) Manual Assessments Soft Tissue Assessment Soft Tissue Mobility Assessment Tenderness 3/4: Wincing and withdraw along medial joint line Joint Mobility Assessment Joint Mobility Assessment Pt shows some mild increased laxity bilaterally with varus/ valgus stress. PT-OP-K Range of Motion Start: 01/07/21 17:50 Freq: Status: Active Protocol: Document 01/07/21 15:15 DCW (Rec: 01/08/21 17:43 DCW [id number]) Knee Goniometric Range of Motion Knee Right Knee ROM WFL Yes Patient Position Supine Flexion Active (degrees) 125 Extension Active (degrees) 0 Left Knee ROM WFL No Patient Position Supine Flexion Active (degrees) 110 Extension Active (degrees) 0 PT-OP-L Special Tests Start: 01/07/21 17:50 Freq: Status: Active Protocol: Document 01/07/21 15:15 DCW (Rec: 01/08/21 17:46 DCW [id number]) Special Tests Knee Special Tests Varus- 0 Degrees Test Results Mild increased laxity bilaterally Valgus- 0 Degrees Test Results Mild increased laxity bilaterally Posterior Draw Test Results Negative Patellar Grind Test Test Results Negative Patella Tap Test Results Negative Holger Test Test Results Positive Left Bounce Home Test Results Positive Left Apprehension Test Test Results Positive Left Apley's Compression Test Results Strongly Positive Left Anterior Draw Test Results Negative PT-OP-M Strength Start: 01/07/21 17:50 Freq: Status: Active Protocol: Document 01/07/21 15:15 DCW (Rec: 01/08/21 17:46 DCW [id number]) Knee Strength Knee Manual Muscle Testing Left Flexion (S2) 4+ Good+ Extension (L3) 4+ Good+ Comments Pt displayed pain reaction with resisted flexion and extension for MMT PT-OP-Q Treatments Start: 01/07/21 17:50 Freq: Status: Active Protocol: Document 02/04/21 15:15 DCW (Rec: 02/04/21 15:56 DCW [id number]) Gym Equipment Shuttle Recovery Unilateral Squats Resistance 37# Bilateral Squats Resistance 75# Therapeutic Exercises Sitting Exercises 2 Sitting Exercise Name Hamstring curls Side bilateral Resistance Lv 2 Equipment Used T-band 1 Sitting Exercise Name LAQ Side bilateral Resistance 5# Standing Exercises 4 Standing Exercise Name Hip Abduction Side bilateral Resistance Lv 3 Equipment Used T-band 3 Standing Exercise Name Hip Extension Side bilateral Resistance Lv 3 Equipment Used T-band 1 Standing Exercise Name TKE Side bilateral Resistance Lv 3 Equipment Used T-band Manual Therapy Treatment Joint Mobilizations 1 Joint L Patella mobs Direction all directions Grade II Body Position Supine PT-OP-R Modalities Start: 01/07/21 17:50 Freq: Status: Active Protocol: Document 02/04/21 15:15 DCW (Rec: 02/04/21 15:56 DCW [id number]) Electric Stimulation Electric Stimulation Interferential Current (IFC) Body Location Left knee Duration (Minutes) 15 Cycle Continuous Patient Position Hooklying Combined With Heat/Cold Cold Pack PT-OP-T Assessment and Plan Start: 01/07/21 17:50 Freq: Status: Active Protocol: Document 02/04/21 15:15 DCW (Rec: 02/04/21 15:56 DCW [id number]) Physical Therapy Assessment Impairments Impairments Activity Tolerance,Functional Activities,Functional Mobility ,Gait,Pain,ROM,Soft Tissue Mobility,Strength Goals Three Impairment Pt unable to participating in her usual physical activity of hiking Housing Management Representative Goal (LTG) Pt to report ability to hike [place] with no increased knee pain LTG Duration 03/09/21 Two Impairment Knee pain interrupts patient's sleep Housing Management Representative Goal (LTG) Pt to sleep through the night for one week straight with no knee pain LTG Duration 03/09/21 One Impairment Pt does not have an appropriate home exercise program Short Term Goal (STG) Pt to be independent and compliant with an appropriate HEP STG Duration 02/06/21 Assessment Summary Assessment Pt more sore overall, limited in nearly all respects in her daily life. Pt hoping to get in for an MRI soon. Physical Therapy Plan Frequency and Duration Frequency of Treatment 2x/Week Duration of Treatment Two months Plan of Care Start Date 01/07/21 Plan of Care End Date 06/14/21 Therapeutic Interventions Therapeutic Interventions Aquatic Therapy,Balance Training,Gait Training,Home Exercise Program,Manual Therapy,Patient/Caregiver Education,Self-Care/Home Management,Soft Tissue Mobilization,Therapeutic Exercises Modalities Cold Pack/Ice Massage,Electric Stimulation,Hot Packs, Ultrasound Next Visit Focus/Plan Next Note Type Treatment Note Next Visit Plan Knee strengthening, pain- control modalities, STM
--- NOTE | 2021-02-26 15:55 | PT.OTN ---
Current Diagnoses Other meniscus derangements, unspecified medial meniscus, left knee (02/26/21) Pain in left knee (02/26/21) Stiffness of left knee, not elsewhere classified (02/26/21) Physical Therapy Treatment Note PT-OP-A Visit Information Start: 01/07/21 17:50 Freq: Status: Active Protocol: Document 02/26/21 15:50 OF (Rec: 02/26/21 15:55 OF [id number]) Out-Patient Physical Therapy Visit Information Visit Information Visit Type Treatment Note Visit Start Time 15:15 Visit Stop Time 15:50 Total Visit Minutes 35 Visit Number 8 Number of REHABILITATION ASSISTANT Visits 0 Evaluation Information Evaluation Date 01/07/21 PT-OP-B Current Condition Start: 01/07/21 17:50 Freq: Status: Active Protocol: Document 01/07/21 15:15 DCW (Rec: 01/08/21 15:08 DCW [id number]) Current Condition History of Current Condition Onset Date 04/07/20 Current Complaints left knee pain, stiffness History of Current Condition Pt is a 40 year old female presenting with a nine month history of left knee pain. Pt reports last March, she [place], and her knee just suddenly began to hurt. Notes she was unable to put any weight on it, and couldn't take and normal steps. Over the next few months, the pain just varied a lot, some good days, some bad, until she finally decided to get it looked at two months ago. Pt has been using rest, ice, compression, and elevation to help reduce her pain, and she had to cancel an upcoming hiking trip that she was really looking forward to. Two days ago, pt notes the pain was so bad it was interrupting her sleep, and she had to go to the emergency department. Admits today is a good day. Pt is very specific in that the worst pain is located directly at the joint line medial of her patella. PT-OP-C Subjective Start: 01/07/21 17:50 Freq: Status: Active Protocol: Document 02/26/21 15:50 OF (Rec: 02/26/21 15:55 OF [id number]) OP-PT Subjective Patient Comments Patient Comments Pt reports improved function, reduced pain. She states I feel the best I have in a month Patient Reported Progress Improving Patient Questionnaires Lower Extremity Functional Scale LEFS Score 31/80 = 38.75 LEFS Impairment 60 to 79% Impaired (Score 17- 31) OP-PT Pain Assessment Location Left Knee Intensity 0 Scale Used Numeric (0 - 10) Variations/Patterns At worst up to 8/10 PT-OP-F Manual Assessment Start: 01/07/21 17:50 Freq: Status: Active Protocol: Document 01/07/21 15:15 DCW (Rec: 01/08/21 17:43 DCW [id number]) Manual Assessments Soft Tissue Assessment Soft Tissue Mobility Assessment Tenderness 3/4: Wincing and withdraw along medial joint line Joint Mobility Assessment Joint Mobility Assessment Pt shows some mild increased laxity bilaterally with varus/ valgus stress. PT-OP-K Range of Motion Start: 01/07/21 17:50 Freq: Status: Active Protocol: Document 01/07/21 15:15 DCW (Rec: 01/08/21 17:43 DCW [id number]) Knee Goniometric Range of Motion Knee Right Knee ROM WFL Yes Patient Position Supine Flexion Active (degrees) 125 Extension Active (degrees) 0 Left Knee ROM WFL No Patient Position Supine Flexion Active (degrees) 110 Extension Active (degrees) 0 PT-OP-L Special Tests Start: 01/07/21 17:50 Freq: Status: Active Protocol: Document 01/07/21 15:15 DCW (Rec: 01/08/21 17:46 DCW [id number]) Special Tests Knee Special Tests Varus- 0 Degrees Test Results Mild increased laxity bilaterally Valgus- 0 Degrees Test Results Mild increased laxity bilaterally Posterior Draw Test Results Negative Patellar Grind Test Test Results Negative Patella Tap Test Results Negative Holger Test Test Results Positive Left Bounce Home Test Results Positive Left Apprehension Test Test Results Positive Left Apley's Compression Test Results Strongly Positive Left Anterior Draw Test Results Negative PT-OP-M Strength Start: 01/07/21 17:50 Freq: Status: Active Protocol: Document 01/07/21 15:15 DCW (Rec: 01/08/21 17:46 DCW [id number]) Knee Strength Knee Manual Muscle Testing Left Flexion (S2) 4+ Good+ Extension (L3) 4+ Good+ Comments Pt displayed pain reaction with resisted flexion and extension for MMT PT-OP-Q Treatments Start: 01/07/21 17:50 Freq: Status: Active Protocol: Document 02/26/21 15:50 OF (Rec: 02/26/21 15:55 OF [id number]) Cardio Equipment Recumbent Bicycle Duration (Minutes) 5 Resistance 5 Seat Position 2 Gym Equipment Shuttle Recovery Unilateral Squats Resistance 37# Shuttle Recovery Platform Stable Reps/Time 2x15 Bilateral Squats Resistance 75# Shuttle Recovery Platform Stable Reps/Time 2x15 Therapeutic Exercises Supine Exercises 2 Supine Exercise Name Bridging /c add ball squeeze Side bilateral Reps/Minutes 3x10 1 Supine Exercise Name SLR Side left Reps/Minutes x10 Sitting Exercises 2 Sitting Exercise Name Hamstring curls Side bilateral Resistance Lv 2 Equipment Used T-band 1 Sitting Exercise Name LAQ Side bilateral Resistance 5# Standing Exercises 2 Standing Exercise Name Step lunge Side bilateral Equipment Used 6 step Reps/Minutes 2x10 PT-OP-R Modalities Start: 01/07/21 17:50 Freq: Status: Active Protocol: Document 02/04/21 15:15 DCW (Rec: 02/04/21 15:56 DCW [id number]) Electric Stimulation Electric Stimulation Interferential Current (IFC) Body Location Left knee Duration (Minutes) 15 Cycle Continuous Patient Position Hooklying Combined With Heat/Cold Cold Pack PT-OP-T Assessment and Plan Start: 01/07/21 17:50 Freq: Status: Active Protocol: Document 02/26/21 15:50 OF (Rec: 02/26/21 15:55 OF [email or web address]) Physical Therapy Assessment Rehab Potential Rehabilitation Potential Fair Evaluation Complexity Number of Personal Factors/Comorbidities 1-2 Number of Body Systems Impaired 3 Clinical Presentation at Evaluation Evolving Impairments Other Impairments pt reports improved function Goals Three Impairment Pt unable to participating in her usual physical activity of hiking [employer] Maker Goal (LTG) Pt to report ability to hike [place] with no increased knee pain LTG Duration 03/09/21 Two Impairment Knee pain interrupts patient's sleep [facility] Goal (LTG) Pt to sleep through the night for one week straight with no knee pain LTG Duration 03/09/21 One Impairment Pt does not have an appropriate home exercise program Short Term Goal (STG) Pt to be independent and compliant with an appropriate HEP STG Duration 02/06/21 Assessment Summary Assessment Pt states she is feeling better than ever in the past month. Performing HEP as instructed. Agreeable to restarting hiking with low level, flat surface walking to improve endurance. She states she feels ready for DC after next 2 scheduled visits. Physical Therapy Plan Frequency and Duration Frequency of Treatment 2x/Week Duration of Treatment Two months Plan of Care Start Date 01/07/21 Plan of Care End Date 03/09/21 Therapeutic Interventions Therapeutic Interventions Aquatic Therapy,Balance Training,Gait Training,Home Exercise Program,Manual Therapy,Patient/Caregiver Education,Self-Care/Home Management,Soft Tissue Mobilization,Therapeutic Exercises Modalities Cold Pack/Ice Massage,Electric Stimulation,Hot Packs, Ultrasound Next Visit Focus/Plan Next Note Type Treatment Note Next Visit Plan Knee strengthening, finalize HEP
--- NOTE | 2021-04-24 15:32 | PT.OPDS ---
Current Diagnoses Other meniscus derangements, unspecified medial meniscus, left knee (02/26/21) Pain in left knee (02/26/21) Stiffness of left knee, not elsewhere classified (02/26/21) Visit Care Team Role Provider Type Sahil Vieyra MD Attending Provider Physician Family Provider Primary Care Provider Referring Provider Specialty: Family Practice Address: [address] [place] [address], [facility] Email: [email or web address] Visit Number Visit Number 8 Discharge Summary PT-OP-B Current Condition Start: 01/07/21 17:50 Freq: Status: Active Protocol: Document 01/07/21 15:15 DCW (Rec: 01/08/21 15:08 DCW [id number]) Current Condition History of Current Condition Onset Date 04/07/20 Current Complaints left knee pain, stiffness History of Current Condition Pt is a 40 year old female presenting with a nine month history of left knee pain. Pt reports last March, she [place], and her knee just suddenly began to hurt. Notes she was unable to put any weight on it, and couldn't take and normal steps. Over the next few months, the pain just varied a lot, some good days, some bad, until she finally decided to get it looked at two months ago. Pt has been using rest, ice, compression, and elevation to help reduce her pain, and she had to cancel an upcoming hiking trip that she was really looking forward to. Two days ago, pt notes the pain was so bad it was interrupting her sleep, and she had to go to the emergency department. Admits today is a good day. Pt is very specific in that the worst pain is located directly at the joint line medial of her patella. PT-OP-C Subjective Start: 01/07/21 17:50 Freq: Status: Active Protocol: Document 02/26/21 15:50 OF (Rec: 02/26/21 15:55 OF [id number]) OP-PT Subjective Patient Comments Patient Comments Pt reports improved function, reduced pain. She states I feel the best I have in a month Patient Reported Progress Improving Patient Questionnaires Lower Extremity Functional Scale LEFS Score 31/80 = 38.75 LEFS Impairment 60 to 79% Impaired (Score 17- 31) OP-PT Pain Assessment Location Left Knee Intensity 0 Scale Used Numeric (0 - 10) Variations/Patterns At worst up to 8/10 PT-OP-F Manual Assessment Start: 01/07/21 17:50 Freq: Status: Active Protocol: Document 01/07/21 15:15 DCW (Rec: 01/08/21 17:43 DCW [id number]) Manual Assessments Soft Tissue Assessment Soft Tissue Mobility Assessment Tenderness 3/4: Wincing and withdraw along medial joint line Joint Mobility Assessment Joint Mobility Assessment Pt shows some mild increased laxity bilaterally with varus/ valgus stress. PT-OP-K Range of Motion Start: 01/07/21 17:50 Freq: Status: Active Protocol: Document 01/07/21 15:15 DCW (Rec: 01/08/21 17:43 DCW [id number]) Knee Goniometric Range of Motion Knee Right Knee ROM WFL Yes Patient Position Supine Flexion Active (degrees) 125 Extension Active (degrees) 0 Left Knee ROM WFL No Patient Position Supine Flexion Active (degrees) 110 Extension Active (degrees) 0 PT-OP-L Special Tests Start: 01/07/21 17:50 Freq: Status: Active Protocol: Document 01/07/21 15:15 DCW (Rec: 01/08/21 17:46 DCW [id number]) Special Tests Knee Special Tests Varus- 0 Degrees Test Results Mild increased laxity bilaterally Valgus- 0 Degrees Test Results Mild increased laxity bilaterally Posterior Draw Test Results Negative Patellar Grind Test Test Results Negative Patella Tap Test Results Negative Holger Test Test Results Positive Left Bounce Home Test Results Positive Left Apprehension Test Test Results Positive Left Apley's Compression Test Results Strongly Positive Left Anterior Draw Test Results Negative PT-OP-M Strength Start: 01/07/21 17:50 Freq: Status: Active Protocol: Document 01/07/21 15:15 DCW (Rec: 01/08/21 17:46 DCW [id number]) Knee Strength Knee Manual Muscle Testing Left Flexion (S2) 4+ Good+ Extension (L3) 4+ Good+ Comments Pt displayed pain reaction with resisted flexion and extension for MMT PT-OP-T Assessment and Plan Start: 01/07/21 17:50 Freq: Status: Active Protocol: Document 04/24/21 15:27 DCW (Rec: 04/24/21 15:32 DCW [id number]) Physical Therapy Assessment Goals Three Impairment Pt unable to participating in her usual physical activity of hiking [facility] Goal (LTG) Pt to report ability to hike [place] with no increased knee pain LTG Duration 03/09/21 Two Impairment Knee pain interrupts patient's sleep 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 Pt has not scheduled any follow- up appointments, and has now not been seen in nearly 2 months. Pt will be discharge from skilled therapy at this time, and will require a new referral in order to return to therapy. Physical Therapy Plan Discharge Physical Therapy Discharge Reasons No Longer Attending PT Next Visit Focus/Plan Next Note Type Discharge Summary
== END 2021-04-27 08:39 | disposition home or self-care (01) ==
LOC: PHYS 15:15
PROVIDERS: Family Provider Family Medicine; PCP Family Medicine; Referring Provider Family Medicine; Visit Provider Family Medicine
DX: M25.562 Pain in left knee (principal); M23.304 Other meniscus derangements, unspecified medial meniscus, left knee; M25.662 Stiffness of left knee, not elsewhere classified
CPT/HCPCS: 97014; 97110; 97140; 97162; G0283

== ENCOUNTER → 2021-04-07 06:53 | Outpatient (CLI) | payer OTHER, MEDICAID, SELFPAY ==
[2021-04-07 08:24] LABS: Hemoglobin A1C% w Est Avg Glu 7.2 % (4.0-6.0)
[2021-04-07 08:30] LABS: BUN Creatinine Ratio 21.7 (6-22); Blood Urea Nitrogen 10 mg/dL (7-17); Calcium 9.1 mg/dL (8.4-10.2); Carbon Dioxide 24 mmol/L (22-32); Chloride 105 mmol/L (98-107); Estimated Glomerular Filt Rate > 60.0 mL/min (>60); Glucose 164 mg/dL (70-100); HEMOLYSIS < 15 (0-50); Potassium 3.9 mmol/L (3.4-5.1); Sodium 136 mmol/L (137-145)
[2021-04-07 10:50] LABS: Creatinine Urine Random 119.6 mg/dL
[2021-04-07 11:06] LABS: Microalbumi Creatinin Ratio Ur 7.5 ug/mg CR (<30); Microalbumin Urine Random 0.9 mg/dL (0-1.6)
== END ==
PROVIDERS: Family Provider Family Medicine; PCP Family Medicine; Referring Provider Family Medicine; Visit Provider Family Medicine
DX: E11.9 Type 2 diabetes mellitus without complications (principal)
CPT/HCPCS: 36415; 80048; 82043; 82570; 83036

== ENCOUNTER → 2021-04-08 16:05 | Outpatient (CLI) | payer OTHER, MEDICAID, SELFPAY ==
--- NOTE | 2021-04-08 16:08 | DI.MRI.S_ITS ---
PROCEDURE: MR KNEE LT WO CON INDICATIONS: rt knee instibility TECHNIQUE: Noncontrast sagittal PD fast spin echo and T2 fast spin echo with fat saturation, sagittal 3-D FLASH with fat saturation; coronal T1 spin echo and PD fast spin echo with fat saturation, and axial PD fast spin echo with fat saturation through the knee. COMPARISON: [facility], CR, XR KNEE LT 3V, 12/03/2020, 15:28. [facility], CR, XR KNEE STANDING BILATERAL, 04/01/2021, 15:45. FINDINGS: Image quality: Excellent. Menisci: Lateral meniscus is intact. Complex tear involving posterior horn of medial meniscus is seen extending to both superior and inferior articulating surfaces. Peripheral displacement of medial meniscus bowing medial collateral ligament is also seen. The meniscal root ligaments appear intact. Cruciate ligaments: The anterior and posterior cruciate ligaments appear intact. Medial structures: Low to moderate grade proximal MCL sprain/partial-thickness tear near its femoral insertion is seen. The posterior oblique ligament, semimembranosus tendon insertions, oblique popliteal ligament, and meniscocapsular junction appear intact. Visualized portions of the pes anserinus tendons appear normal. No abnormal bursal fluid. Lateral structures: The lateral collateral ligament, long and short heads of the biceps femoris tendon appear intact. The popliteus tendon appears normal; the popliteofibular ligament appears intact. The posterosuperior and anteroinferior popliteomeniscal fascicles appear intact. The arcuate and fabellofibular ligaments appear intact, on either side of the lateral inferior geniculate artery. Iliotibial band appears normal. Anterior structures: The quadriceps and patellar tendons appear intact. Patellar alignment is normal. No femoral trochlear dysplasia or ventral trochlear prominence. No edema in the infrapatellar fat pad. 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 Low to moderate grade focal chondromalacia patella involving medial facet of patella cartilage near apex is noted. No fracture or dislocation. No marrow edema. Joint space: There is moderate amount of joint fluid, no gross intra-articular loose body. There is a tiny popliteal cyst. Normal appearing synovial plicae are incidentally noted. IMPRESSION: 1. Complex tear involving posterior horn of medial meniscus extending to both superior and inferior articulating surfaces. No focal lateral meniscal tear. 2. Cruciate ligaments are intact. Low to moderate grade proximal MCL sprain/partial-thickness tear near its femoral insertion. 3. 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 Low to moderate grade chondromalacia patella involving medial facet of patella cartilage near apex. Moderate amount of joint fluid, no gross loose body. Small popliteal cyst. Dictated by: Emory Espinosa M.D. on 04/08/2021 at 16:47 Approved by: Emory Espinosa M.D. on 04/08/2021 at 16:51
== END ==
PROVIDERS: Family Provider Family Medicine; PCP Family Medicine; Referring Provider Family Medicine; Visit Provider Family Medicine
DX: M25.562 Pain in left knee (principal); S83.232A Complex tear of medial meniscus, current injury, left knee, initial encounter; S83.412A Sprain of medial collateral ligament of left knee, initial encounter; M17.12 Unilateral primary osteoarthritis, left knee; M94.262 Chondromalacia, left knee; M71.22 Synovial cyst of popliteal space [Baker], left knee
CPT/HCPCS: 73721

== ENCOUNTER → 2021-07-02 06:52 | Outpatient (CLI) | payer OTHER, MEDICAID, SELFPAY ==
[2021-07-02 08:51] LABS: BUN Creatinine Ratio 23.9 (6-22); Blood Urea Nitrogen 11 mg/dL (7-17); Calcium 9.3 mg/dL (8.4-10.2); Carbon Dioxide 26 mmol/L (22-32); Chloride 102 mmol/L (98-107); Estimated Glomerular Filt Rate > 60.0 mL/min (>60); Glucose 195 mg/dL (70-100); HEMOLYSIS < 15 (0-50); Potassium 3.8 mmol/L (3.4-5.1); Sodium 138 mmol/L (137-145)
[2021-07-02 08:59] LABS: Hemoglobin A1C% w Est Avg Glu 7.7 % (4.0-6.0)
[2021-07-03 17:44] LABS: Deamidated Gliadin Ab IgA 4 units (0-19); Deamidated Gliadin Ab IgG 2 units (0-19); Immunoglobulin A,Qn 302 mg/dL (87-352); t-Transglutaminase IgA <2 U/mL (0-3)
== END ==
PROVIDERS: Family Provider Family Medicine; PCP Family Medicine; Referring Provider Family Medicine; Visit Provider Family Medicine
DX: E11.9 Type 2 diabetes mellitus without complications (principal); K58.9 Irritable bowel syndrome, unspecified
CPT/HCPCS: 36415; 80048; 82784; 83036; 83516

== ENCOUNTER → 2021-07-02 | Outpatient (CLI) | payer OTHER, MEDICAID, SELFPAY | PROVIDERS: Family Provider Family Medicine; PCP Family Medicine; Referring Provider Internal Medicine; Visit Provider Internal Medicine | DX: Z23 Encounter for immunization (principal) | CPT/HCPCS: 90471; 90686 ==

== ENCOUNTER 2021-07-05 13:52 | Emergency (ER) | payer OTHER, MEDICAID, SELFPAY ==
[2021-07-05] VITALS (7 sets, daily range): BP systolic 137–186; BP diastolic 61–85; PULSE 76–86; RESP 18; TEMP 37; O2SAT 96–98; BMI 53.3
--- NOTE | 2021-07-05 14:12 | ED_ITS ---
HPI - Female Genitourinary <Janelle Reis HEALTH INFORMATION CLERK - Last Filed: 07/05/21 18:53> General Chief complaint: Urogenital-Female Stated complaint: Cannot urinate- painful Time Seen by Provider: 07/05/21 14:03 History of Present Illness HPI Narrative: 40-year-old female with history of obesity, diabetes on metformin, presents to the emergency department today for acute urinary retention, bladder pressure and pain, and the inability to empty her bladder. She states the last time she had a normal volume void was at 6:00 a.m. this morning, since then she has had urinary frequency without ability to empty. She denies any new medications, she does state that she has been taking meloxicam, and that she has an upcoming knee surgery, but otherwise there have not been any changes to her health or her medications. She denies that this has ever happened before, she also denies any history of renal calculi, denies any changes to her stool, has a history of cholecystectomy and appendectomy, denies any recent fever. She reports that her suprapubic pain is a 10/10 especially with palpation. She does endorse that she had 1 episode of nausea and vomiting this morning, she reports that it was related to pain she thinks. She denies any recent fever, no chills, diaphoresis, dizziness, back pain, or chest pain. She reports that she has only been able to trickle small amounts of urine since her normal void at 6:00 a.m.. Related Data Home Medications Medication Instructions Recorded Confirmed CA PANTOTHENATE/FOLIC ACID/VIT 1 tab PO QDAY #0 03/06/13 05/18/21 (MULTIVITAMIN) Calcium Carbonate/Vitamin D 1 tab PO Q DAY #0 03/06/13 05/18/21 (#CALCITAB 600 + VITAMIN D 600 MG-200 IU) LACTOBACILLUS ACIDOPH (Bacid) 1 tab PO QDAY #0 03/06/13 05/18/21 [fish oil] #0 06/27/17 05/18/21 [magnesium] #0 06/27/17 05/18/21 ascorbic acid 125 mg-collagen, cap PO 12/03/20 05/18/21 hydrolyzed 740 mg capsule (Collagen Plus Vitamin C) glucosam 750 mg-chondroi 100 tab PO 12/03/20 05/18/21 mg-hyalur 1.65 mg-CF borate 108 mg tablet ([facility] [employer]) Previous Rx's Medication Instructions Recorded blood-glucose meter (Blood Glucose #1 each 03/13/18 Monitoring) blood sugar diagnostic (Blood #50 each 05/01/18 Glucose Test) lancets 33 gauge #100 each 06/15/18 glyburide 5 mg tablet 5 mg PO BID #60 tab 09/22/20 citalopram 20 mg tablet (Celexa) 30 mg PO QDAY #45 tab 01/02/21 levonorgestrel 0.15 mg-ethinyl 1 tab PO DAILY #112 tab 01/12/21 estradiol 0.03 mg tablet (Levora-28) metformin 500 mg tablet,extended 1,000 mg PO BID #120 tab 04/08/21 release 24 hr hydrocodone 5 mg-acetaminophen 325 1 tab PO Q4-6H PRN #7 tab 05/18/21 mg tablet meloxicam 7.5 mg tablet (Mobic) 7.5 mg PO DAILY #60 tab 06/22/21 DISABLED PARKING PERMIT #1 ea 06/25/21 tramadol 50 mg tablet 50 mg PO DAILY #14 tab 07/05/21 Allergies Allergy/AdvReac Type Severity Reaction Status Date / Time clindamycin [CLINDAMYCIN] Allergy Unknown Verified 05/18/21 15:28 sulfamethoxazole Allergy Unknown Verified 05/18/21 15:28 [From ] trimethoprim [From ] Allergy Unknown Verified 05/18/21 15:28 Review of Systems <FLORINDA Simons - Last Filed: 07/05/21 18:53> Review of Systems Narrative: General: denies fever, chills Head/Neck: denies headache, neck pain Eyes: denies visual changes, eye pain Cardio: denies chest pain, palpitations Respiratory: denies shortness of breath, cough GI: denies abdominal pain, nausea, vomiting, or diarrhea : Complains of suprapubic pain, pressure, feeling of a full bladder and the inability to empty her bladder. MSK: denies joint pain, muscle weakness Skin: denies rash, itching Neuro: denies numbness, tingling Patient History <FLORINDA Simons - Last Filed: 07/05/21 18:53> Medical History (Updated 07/05/21 @ 18:53 by FLORINDA Simons) Anxiety IBS (irritable bowel syndrome) Surgical History Status post appendectomy (1996) Status post delivery (1997) Status post delivery (2001) Status post cholecystectomy (1997) Family History Father CAD (coronary artery disease) Mother Lung cancer Substance Use Type: does not use Exam <FLORINDA Simons - Last Filed: 07/05/21 18:53> Narrative Exam Narrative: Independently reviewed vitals signs and nursing notes. General: Awake, alert, nontoxic, no cardiorespiratory distress, obese Head/Neck: Atraumatic, neck full range of motion Eyes: EOMI, conjunctiva normal Nose: nares patent, no rhinorrhea Mouth/Throat: moist mucus membranes, posterior pharynx normal, no oral lesions Cardio: Regular rate and rhythm, no peripheral edema Respiratory: respirations unlabored without wheezing, stridor, or rales. No retractions. GI: Abdomen soft, nontender to palpation, endorses right CVA tenderness with palpation, no CVA tenderness on the left, suprapubic pain with palpation. : On exam, no external abnormalities, no edema or abnormal discharge, when placing urethral Rodarte catheter, it was met with some resistance and some mucus and sediment came out in the catheter after the balloon was inflated in the bladder, clear yellow urine came 3 flowing out, patient put out about 500 mL without obvious blood. MSK: Moves all extremities, neurovascularly intact Skin: Normal capillary refill, no rash Neuro: Normal speech and cognition, normal gait Initial Vital Signs Initial Vital Signs: Vital Signs Pulse Oximetry 98 07/05/21 14:12 <Ravi Gupta DO - Last Filed: 07/06/21 07:15> Initial Vital Signs Initial Vital Signs: Vital Signs Pulse Oximetry 98 07/05/21 14:12 Course <FLORINDA Simons - Last Filed: 07/05/21 18:53> Orders Ordered: Discontinued Medications Hydrocodone Bitart/Acetaminophen (Hydrocodone/Acet 5/325 Tablet) 1 tab PO NOW ONE Stop: 07/05/21 15:39 Last Admin: 07/05/21 15:42 Dose: 1 tab Documented by: ELLIE Reevaluation(s) Reevaluation #1: Initial bladder scan revealed 200 mL, catheterization by RN was successful for 150 mL, however RN reported that she felt abnormal resistance w hen it inserting the catheter and was not able to advance the catheter, bladder scan with urinary catheter in place revealed 150 mL still in patient's bladder. UA was pertinent for hematuria only. Vital Signs Vital signs: Vital Signs - 8 hr 07/05/21 14:12 07/05/21 14:13 07/05/21 14:30 Temperature Pulse Rate 83 78 Respiratory Rate Blood Pressure 186/85 H Pulse Oximetry 98 97 98 07/05/21 14:37 07/05/21 15:04 07/05/21 15:05 Temperature 98.6 F Pulse Rate 86 82 82 Respiratory Rate 18 Blood Pressure 186/85 H 137/61 Pulse Oximetry 98 98 98 07/05/21 15:30 Temperature Pulse Rate 76 Respiratory Rate Blood Pressure Pulse Oximetry 96 <Ravi Gupta DO - Last Filed: 07/06/21 07:15> Orders Ordered: Discontinued Medications Hydrocodone Bitart/Acetaminophen (Hydrocodone/Acet 5/325 Tablet) 1 tab PO NOW ONE Stop: 07/05/21 15:39 Last Admin: 07/05/21 15:42 Dose: 1 tab Documented by: ELLIE Vital Signs Vital signs: Vital Signs - 8 hr 07/05/21 14:12 07/05/21 14:13 07/05/21 14:30 Temperature Pulse Rate 83 78 Respiratory Rate Blood Pressure 186/85 H Pulse Oximetry 98 97 98 07/05/21 14:37 07/05/21 15:04 07/05/21 15:05 Temperature 98.6 F Pulse Rate 86 82 82 Respiratory Rate 18 Blood Pressure 186/85 H 137/61 Pulse Oximetry 98 98 98 07/05/21 15:30 Temperature Pulse Rate 76 Respiratory Rate Blood Pressure Pulse Oximetry 96 MDM - Female Genitourinary <FLORINDA Simons - Last Filed: 07/05/21 18:53> Lab Data Result diagrams: 07/05/21 15:12 07/05/21 15:12 Labs: Lab Results 07/05/21 07/05/21 07/05/21 Range/Units 14:28 15:12 15:12 WBC 11.8 H (4.5-11.0) X10^3/uL RBC 4.27 (4.0-5.2) X10^6/uL Hgb 12.8 (12.0-16.0) g/dL Hct 38.1 (36-46) % MCV 89.3 (80-100) fL MCH 29.9 (26-34) PG MCHC 33.5 (30-36) % RDW 13.9 (11.6-14.8) % Plt Count 252 (150-400) X10^3/uL Sodium 138 (137-145) mmol/L Potassium 3.7 (3.4-5.1) mmol/L Chloride 103 (98-107) mmol/L Carbon Dioxide 27 (22-32) mmol/L BUN 9 (7-17) mg/dL Creatinine 0.52 (0.52-1.04) mg/dL Estimated GFR > 60.0 (>60) mL/min BUN/Creatinine Ratio 17.3 (6-22) Glucose 200 H (70-100) mg/dL Calcium 9.0 (8.4-10.2) mg/dL Total Bilirubin 0.3 (0.2-1.3) mg/dL AST 34 (14-36) IU/L ALT 25 (<35) IU/L Alkaline Phosphatase 51 (38-126) U/L Total Protein 6.9 (6.3-8.2) g/dL Albumin 3.9 (3.5-5.0) g/dL Globulin 3.0 (1.7-4.1) g/dL Albumin/Globulin Ratio 1.3 (1.0-2.8) Urine RBC 10-30/hpf H (0-5/HPF) Urine WBC 0-1/hpf (0-5/HPF) Ur Squamous Epith Cells 0-1 /hpf (0-5/HPF) Urine Bacteria Occasional (0-1) (None) Urine Mucus 1+ H (Negative) Ur Culture Indicated? Cult not indicated Urine Dip Bedside Urine Glucose Negative Bedside Urine Bilirubin - Negative Bedside Urine Ketone - Negative Urine Specific [place] 1.025 Bedside Urine Occult Blood +++ Bedside Urine pH 6.0 Bedside Urine Protein - Negative Bedside Urine Urobilinogen - Negative Bedside Urine Nitrite - Negative Bedside Urine Leukocytes - Negative Esterase Imaging Data CT KUB: Radiologist's Impression: PROCEDURE:? CT KIDNEY URETER BLADDER (KUB) ? INDICATIONS:? c/f post renal obstruction, pt has urinary retention ? TECHNIQUE:? Axial sections were acquired from the lung bases to the pubic symphysis.? Coronal and sagittal reformats were performed.? For radiation dose reduction, the following was used: ?automated exposure control, adjustment of mA and/or kV according to patient size.? ? COMPARISON:? ? [facility], CT, KIDNEY/ URETER/BLADDER, 09/09/2015, 11:35. ? FINDINGS:? Image quality:? Excellent.? ? Lung bases:? Unremarkable.? ? Heart:? No significant findings. ? URINARY: Right Kidney: ? No stones or hydronephrosis.? Right Ureter:? No hydroureter.? ? Left Kidney: ? No stones or hydronephrosis. Left Ureter:? There is a 2 mm obstructing stone seen within the distal most left ureter, nearly to the ureterovesicular junction, as on series 2, image 177 and on series 4, image 51, with associated moderate left-sided hydroureter. ? Bladder:? Normal wall thickness. No stones. ? ? ? ABDOMEN: Liver: Diffuse fatty liver infiltration is noted.? A subtle area of increased density seen within the central liver, as on series 2, image 17 measuring 15 mm, which may be related to fatty sparing. Gallbladder:? Removed.? ? Biliary ducts:? Unremarkable.? ? Pancreas:? Unremarkable.? ? Spleen:? Unremarkable.? ? Adrenal Glands:? Unremarkable.? ? ? Stomach and Bowel:? Stomach, small bowel loops, and colon are unremarkable.? Appendectomy change can be seen. Peritoneum:? No abnormal intraperitoneal fluid.? No free air.? ? Ventral Wall: A mild periumbilical hernia is seen, containing fat. ? Abdominal Nodes:? No enlarged retroperitoneal or mesenteric lymph nodes.? Vessels:? Aorta and inferior vena cava are normal in size.? ? PELVIS: Pelvic Organs:? No significant uterus abnormality is seen.? No adnexal masses are seen.? Pelvic Nodes: Unremarkable. Miscellaneous: No inguinal hernias are seen.? Left anterior pelvis clips can be seen, as on series 2, image 75. ? ? Bones:? Unremarkable. ? IMPRESSION:? ? A 2 mm obstructing stone can be seen within the distal most left ureter, with associated left-sided hydroureter and hydronephrosis. ? No nonobstructing kidney stones are seen. ? ? Incidental note is made of: Fatty liver infiltration Fat containing periumbilical hernia Cholecystectomy Appendectomy Left anterior pelvis postoperative clips ? Dictated by: Obi Valdivia M.D. on 07/05/2021 at 14:17 ? ? Approved by: Obi Valdivia M.D. on 07/05/2021 at 14:21 ? MDM Narrative Medical decision making narrative: 40-year-old female with urinary retention that started this morning, with urinary frequency, urgency, and suprapubic pain and pressure. Urinary catheterization was met with resistance by the RN and inability to advance, however 150 mL were drained, but bladder scan revealed that she still had 150 mL in her bladder. A Rodarte catheter was placed without difficulty, mucous and blood that were present initially in the urine KUB revealed A 2 mm obstructing stone can be seen within the distal most left ureter, with associated left-sided hydroureter and hydronephrosis. Patient's creatinine was 0.52 and BUN 17.3, GFR >60 Patient has had an appendectomy, cholecystectomy, still has all of her reproductive organs, denies any recent changes to her vaginal discharge, or noticing blood in her urine. UA was pertinent for hematuria and 1+ mucus, culture not indicated. She is not on any current Medications that are known causes of acute urinary retention. This is most likely urinary retention related to hematuria and mucus in her urine with the renal calculus present in her left distal-most the ureter. She trialed a Rodarte catheter for about 1 hour and then requested to have a DC did so that she could go home. She was able to void 30 minutes after catheter was removed, on bladder scan there was no urinary retention afterward. She understands to follow-up with urology tomorrow and to return to the emergency department for any new fever, nausea vomiting, worsening flank pain, urinary retention. Her vital signs were within Normal limits today. Initial ddx to include but not limited to pelvic organ prolapse, pelvic mass, urethral diverticulum, neurologic impairment although less likely as neuro exam was without any focal deficits, inefficient detrusor muscle, and infection. Patient is appropriate and amenable to discharge home. Vital signs are stable on repeat examination is unremarkable. Patient has been informed of results. Patient has been given strict return to ER precautions for any new or worsening symptoms. Patient understands to follow up closely with outpatient providers as instructed. Patient understands plan and agrees to discharge home. All questions and concerns answered at this time. <Ravi Gupta, DO - Last Filed: 07/06/21 07:15> Lab Data Labs: Lab Results 07/05/21 07/05/21 07/05/21 Range/Units 14:28 15:12 15:12 WBC 11.8 H (4.5-11.0) X10^3/uL RBC 4.27 (4.0-5.2) X10^6/uL Hgb 12.8 (12.0-16.0) g/dL Hct 38.1 (36-46) % MCV 89.3 (80-100) fL MCH 29.9 (26-34) PG MCHC 33.5 (30-36) % RDW 13.9 (11.6-14.8) % Plt Count 252 (150-400) X10^3/uL Sodium 138 (137-145) mmol/L Potassium 3.7 (3.4-5.1) mmol/L Chloride 103 (98-107) mmol/L Carbon Dioxide 27 (22-32) mmol/L BUN 9 (7-17) mg/dL Creatinine 0.52 (0.52-1.04) mg/dL Estimated GFR > 60.0 (>60) mL/min BUN/Creatinine Ratio 17.3 (6-22) Glucose 200 H (70-100) mg/dL Calcium 9.0 (8.4-10.2) mg/dL Total Bilirubin 0.3 (0.2-1.3) mg/dL AST 34 (14-36) IU/L ALT 25 (<35) IU/L Alkaline Phosphatase 51 (38-126) U/L Total Protein 6.9 (6.3-8.2) g/dL Albumin 3.9 (3.5-5.0) g/dL Globulin 3.0 (1.7-4.1) g/dL Albumin/Globulin Ratio 1.3 (1.0-2.8) Urine RBC 10-30/hpf H (0-5/HPF) Urine WBC 0-1/hpf (0-5/HPF) Ur Squamous Epith Cells 0-1 /hpf (0-5/HPF) Urine Bacteria Occasional (0-1) (None) Urine Mucus 1+ H (Negative) Ur Culture Indicated? Cult not indicated Urine Dip Bedside Urine Glucose Negative Bedside Urine Bilirubin - Negative Bedside Urine Ketone - Negative Urine Specific [place] 1.025 Bedside Urine Occult Blood +++ Bedside Urine pH 6.0 Bedside Urine Protein - Negative Bedside Urine Urobilinogen - Negative Bedside Urine Nitrite - Negative Bedside Urine Leukocytes - Negative Esterase Discharge Plan Departure Patient Disposition: Home Clinical Impression: Left nephrolithiasis, Acute urinary retention Instructions: DI for Kidney Stones Activity Restrictions/Additional Instructions: *You have been diagnosed with a 2 mm obstructing stone within the distal most left ureter, with associated left-sided hydroureter and hydronephrosis. Please follow-up with Dr. Harris from Urology tomorrow, his contact is below. If you develop any symptoms of urinary obstruction tonight please return to the emergency department for catheterization. 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 No other medications are proven to be helpful with passing a 2 mm stone, I recommend drinking plenty of fluids, voiding frequently if you can , and avoiding any calcium rich foods and suppl ements for couple days. If he develops fever, abdominal or back pain, or any worsening symptoms please return to the emergency department. *What to do: *Please continue to take your regular medications as directed. [ x] New medication prescriptions sent to your pharmacy: [[facility]] [ ] New medication written as a paper prescription [ ] No new medications given *Please follow up with your primary care provider in 2-3 days, call for an appointment. Let them know you were seen in the Emergency Department and that we ask that you be seen in follow up. We will electronically transmit a record of today's note if your PCP is in our system *If you do not have a primary care provider please contact the [facility] Resource line at [phone]. They will ask some questions about your medical history and help get you set up with a doctor in the community. *Return to Emergency Department if you should have any new, worsening or concerning symptoms, such as [fever greater than 101F, chills, worsening pain, persistent vomiting or other bothersome symptoms] Prescriptions: New tramadol 50 mg tablet 50 mg PO DAILY Qty: 14 RF: 0 No Action metformin 500 mg tablet extended release 24 hr 1,000 mg PO BID Qty: 120 RF: 11 [facility] 750 mg-100 mg- 1.65 mg-108 mg tablet PO RF: 0 Collagen Plus Vitamin C 125-740 mg capsule PO RF: 0 hydrocodone-acetaminophen 5-325 mg tablet 1 tab PO Q4-6H PRN (Reason: pain) Qty: 7 RF: 0 CA PANTOTHENATE/FOLIC ACID/VIT (MULTIVITAMIN) 1 tab PO QDAY Qty: 0 RF: 0 LACTOBACILLUS ACIDOPH (Bacid) 1 tab PO QDAY Qty: 0 RF: 0 Calcium Carbonate/Vitamin D (#CALCITAB 600 + VITAMIN D 600 MG-200 IU) 1 tab PO Q DAY Qty: 0 RF: 0 [fish oil] Qty: 0 RF: 0 [magnesium] Qty: 0 RF: 0 (DME) blood sugar diagnostic [Blood Glucose Test] strip See Dose Instructions .ROUTE .MEDSUPPLY Qty: 50 RF: 0 (DME) lancets 33 gauge misc See Dose Instructions .ROUTE .MEDSUPPLY Qty: 100 RF: 5 glyburide 5 mg tablet 5 mg PO BID Qty: 60 RF: 11 citalopram [Celexa] 20 mg tablet 30 mg PO QDAY Qty: 45 RF: 11 levonorgestrel-ethinyl estrad [Levora-28] 0.15-0.03 mg tablet 1 tab PO DAILY Qty: 112 RF: 3 meloxicam [Mobic] 7.5 mg tablet 7.5 mg PO DAILY Qty: 60 RF: 0 (DME) DISABLED PARKING PERMIT See Rx Instructions .ROUTE .MEDSUPPLY Qty: 1 RF: 0 (DME) blood-glucose meter [Blood Glucose Monitoring] kit See Dose Instructions .ROUTE .MEDSUPPLY Qty: 1 RF: 0 Referrals: Sahil Vieyra MD [Primary Care Provider] - James Harris MD [Physician] - As soon as possible <Ravi Gupta DO - Last Filed: 07/06/21 07:15> Cosign ED Attending Cosignature Attestation: Dr Gupta Co-Sign Statement: I was available for consultation during this patient's emergency department visit. This chart is signed by myself for administrative purposes only. I did not have direct contact with this patient during this visit. They were seen independently by the APC.
--- NOTE | 2021-07-05 14:35 | DI.CT.S_ITS ---
PROCEDURE: CT KIDNEY URETER BLADDER (KUB) INDICATIONS: c/f post renal obstruction, pt has urinary retention TECHNIQUE: Axial sections were acquired from the lung bases to the pubic symphysis. Coronal and sagittal reformats were performed. For radiation dose reduction, the following was used: automated exposure control, adjustment of mA and/or kV according to patient size. COMPARISON: [facility], CT, KIDNEY/ URETER/BLADDER, 09/09/2015, 11:35. FINDINGS: Image quality: Excellent. Lung bases: Unremarkable. Heart: No significant findings. URINARY: Right Kidney: No stones or hydronephrosis. Right Ureter: No hydroureter. Left Kidney: No stones or hydronephrosis. Left Ureter: There is a 2 mm obstructing stone seen within the distal most left ureter, nearly to the ureterovesicular junction, as on series 2, image 177 and on series 4, image 51, with associated moderate left-sided hydroureter. Bladder: Normal wall thickness. No stones. ABDOMEN: Liver: Diffuse fatty liver infiltration is noted. A subtle area of increased density seen within the central liver, as on series 2, image 17 measuring 15 mm, which may be related to fatty sparing. Gallbladder: Removed. Biliary ducts: Unremarkable. Pancreas: Unremarkable. Spleen: Unremarkable. Adrenal Glands: Unremarkable. Stomach and Bowel: Stomach, small bowel loops, and colon are unremarkable. Appendectomy change can be seen. Peritoneum: No abnormal intraperitoneal fluid. No free air. Ventral Wall: A mild periumbilical hernia is seen, containing fat. Abdominal Nodes: No enlarged retroperitoneal or mesenteric lymph nodes. Vessels: Aorta and inferior vena cava are normal in size. PELVIS: Pelvic Organs: No significant uterus abnormality is seen. No adnexal masses are seen. Pelvic Nodes: Unremarkable. Miscellaneous: No inguinal hernias are seen. Left anterior pelvis clips can be seen, as on series 2, image 75. Bones: Unremarkable. IMPRESSION: A 2 mm obstructing stone can be seen within the distal most left ureter, with associated left-sided hydroureter and hydronephrosis. No nonobstructing kidney stones are seen. Incidental note is made of: Fatty liver infiltration Fat containing periumbilical hernia Cholecystectomy Appendectomy Left anterior pelvis postoperative clips Dictated by: Obi Valdivia M.D. on 07/05/2021 at 14:17 Approved by: Obi Valdivia M.D. on 07/05/2021 at 14:21
[2021-07-05 14:59] LABS: Bacteria Urine Occasional (0-1); Culture Indicated Urine Cult Not Indicated; Mucus Urine 1+ (Negative); RBC Urine 10-30/HPF (0-5/HPF); Squamous Epithelial Cell Urine 0-1 /HPF (0-5/HPF); WBC Urine 0-1/HPF (0-5/HPF)
[2021-07-05 15:19] LABS: Hematocrit 38.1 % (36-46); Hemoglobin 12.8 g/dL (12.0-16.0); Mean Corpuscular HGB Conc 33.5 % (30-36); Mean Corpuscular Hemoglobin 29.9 PG (26-34); Mean Corpuscular Volume 89.3 fL (80-100); Platelet Count 252 X10^3/uL (150-400); Red Blood Cell Count 4.27 X10^6/uL (4.0-5.2); Red Cell Distribution Width 13.9 % (11.6-14.8); White Blood Cell Count 11.8 X10^3/uL (4.5-11.0)
[2021-07-05 15:29] LABS: Alanine Aminotransferase 25 IU/L (<35); Albumin 3.9 g/dL (3.5-5.0); Albumin Globulin Ratio 1.3 (1.0-2.8); Alkaline Phosphatase 51 U/L (38-126); Aspartate Aminotransferase 34 IU/L (14-36); BUN Creatinine Ratio 17.3 (6-22); Bilirubin Total 0.3 mg/dL (0.2-1.3); Blood Urea Nitrogen 9 mg/dL (7-17); Carbon Dioxide 27 mmol/L (22-32); Chloride 103 mmol/L (98-107); Estimated Glomerular Filt Rate > 60.0 mL/min (>60); Glucose 200 mg/dL (70-100); HEMOLYSIS < 15 (0-50); Potassium 3.7 mmol/L (3.4-5.1); Sodium 138 mmol/L (137-145); Total Protein 6.9 g/dL (6.3-8.2)
[2021-07-05] MEDS: HYDROCODONE/ACET 5/325 TABLET 1 TAB PO (15:42)
== END 2021-07-05 17:31 | disposition home or self-care (01) ==
PROVIDERS: Emergency Provider Nurse Practitioner Critical Care Medicine; Family Provider Family Medicine; PCP Family Medicine
DX: N20.0 Calculus of kidney (principal); R33.8 Other retention of urine
CPT/HCPCS: 36415; 51701; 51798; 74176; 80053; 81003; 81015; 85027; 99284

== ENCOUNTER → 2021-07-16 06:35 | Outpatient (CLI) | payer OTHER, MEDICAID, SELFPAY ==
--- NOTE | 2021-07-16 06:38 | DI.CT.S_ITS ---
PROCEDURE: CT PEL WO CON INDICATIONS: distal left ureteral calculus TECHNIQUE: After the administration of oral contrast, 5 mm thick sections acquired from the iliac crests to the symphysis. 5 mm coronal and sagittal reformats were then performed. For radiation dose reduction, the following was used: automated exposure control, adjustment of mA and/or kV according to patient size. COMPARISON: [facility], CT, CT KIDNEY URETER BLADDER (KUB), 07/05/2021, 15:00. FINDINGS: Image quality: Excellent. Peritoneum and bowel: Bowel loops demonstrate normal wall thickness and caliber. Appendix is surgically removed. Surgical clips are noted in omentum. No free fluid or air. Genitourinary: The 2 mm left distal ureteral stone seen on the comparison CT dated 07/05/2021 is no longer present. Bladder wall thickness is normal. No bladder stone or bladder mass visualized. Uterus and ovaries are unremarkable. Nodes and vessels: No iliac, pelvic, or inguinal adenopathy by size criteria. Iliac vessels demonstrate normal size. Bones: No suspicious bony lesions. Pelvic ring and hip joints appear intact. Mild degenerative disease in the lower lumbar spine. Miscellaneous: No inguinal hernias. Tiny fat containing umbilical hernia. IMPRESSION: 1. The 2 mm left distal ureteral stone seen on the comparison CT from 07/05/2021 is no longer present, consistent with passage. Dictated by: Malcom Rabago M.D. on 07/16/2021 at 7:46 Approved by: Malcom Rabago M.D. on 07/16/2021 at 7:50
== END ==
PROVIDERS: Family Provider Family Medicine; PCP Family Medicine; Referring Provider Urology; Visit Provider Urology
DX: N20.0 Calculus of kidney (principal); R33.8 Other retention of urine
CPT/HCPCS: 72192

== ENCOUNTER → 2021-12-23 07:18 | Outpatient (CLI) | payer OTHER, SELFPAY ==
[2021-12-23 07:48] LABS: Add Manual Diff / Slide Review NO; Basophils Absolute Auto 100 /uL (0-100); Basophils Percent Auto 0.5 % (0-2); Eosinophils Absolute Auto 200 /uL (0-450); Eosinophils Percent Auto 1.8 % (2-4); Hematocrit 39.7 % (36-46); Hemoglobin 13.3 g/dL (12.0-16.0); Lymphocytes Absolute Auto 3200 /uL (1100-4500); Lymphocytes Percent Auto 28.6 % (25-40); Mean Corpuscular HGB Conc 33.6 % (30-36); Mean Corpuscular Hemoglobin 30.2 PG (26-34); Mean Corpuscular Volume 89.9 fL (80-100); Monocytes Absolute Auto 800 /uL (0-900); Monocytes Percent Auto 6.9 % (3-14); Neutrophils Absolute Auto 7100 /uL (1500-7000); Neutrophils Percent Auto 62.2 % (50-75); Platelet Count 259 X10^3/uL (150-400); Red Blood Cell Count 4.42 X10^6/uL (4.0-5.2); Red Cell Distribution Width 13.3 % (11.6-14.8); White Blood Cell Count 11.4 X10^3/uL (4.5-11.0)
[2021-12-23 07:49] LABS: Alanine Aminotransferase 28 IU/L (<35); Albumin Globulin Ratio 1.2 (1.0-2.8); Alkaline Phosphatase 72 U/L (38-126); Aspartate Aminotransferase 42 IU/L (14-36); BUN Creatinine Ratio 15.3 (6-22); Bilirubin Total 0.4 mg/dL (0.2-1.3); Blood Urea Nitrogen 9 mg/dL (7-17); Calcium 8.7 mg/dL (8.4-10.2); Carbon Dioxide 20 mmol/L (22-32); Chloride 101 mmol/L (98-107); Cholesterol 160 mg/dL (140-199); Estimated Glomerular Filt Rate > 60.0 mL/min (>60); Globulin 3.3 g/dL (1.7-4.1); Glucose 310 mg/dL (70-100); HDL Cholesterol 45 mg/dL (40-60); HEMOLYSIS < 15 (0-50); LDL Cholesterol Calculated 47 mg/dL (<100); Potassium 3.5 mmol/L (3.4-5.1); Sodium 135 mmol/L (137-145); Total Protein 7.3 g/dL (6.3-8.2); Triglycerides 338 mg/dL (35-150)
[2021-12-23 08:25] LABS: TSH w/ Reflex to FT4 4.13 uIU/mL (0.47-4.68)
[2021-12-23 15:38] LABS: Creatinine Urine Random 69.3 mg/dL
[2021-12-23 15:41] LABS: Microalbumi Creatinin Ratio Ur 34.6 ug/mg CR (<30); Microalbumin Urine Random 2.4 mg/dL (0-1.6)
== END ==
PROVIDERS: Family Provider Family Medicine; PCP Family Medicine; Referring Provider Family Medicine; Visit Provider Family Medicine
DX: E11.9 Type 2 diabetes mellitus without complications (principal); E66.01 Morbid (severe) obesity due to excess calories; N20.1 Calculus of ureter; R31.29 Other microscopic hematuria; R33.9 Retention of urine, unspecified; Z13.9 Encounter for screening, unspecified
CPT/HCPCS: 36415; 80053; 80061; 82043; 82570; 83036; 84443; 85025

== ENCOUNTER → 2022-01-11 15:43 | Outpatient (CLI) | payer OTHER, SELFPAY ==
--- NOTE | 2022-01-11 | DI.MG.S_ITS ---
BILATERAL DIGITAL SCREENING MAMMOGRAM 3D/2D WITH CAD: 01/11/2022 CLINICAL: Routine screening. No prior exams were available for comparison. There are scattered fibroglandular elements in both breasts. Current study was also evaluated with a Computer Aided Detection (CAD) system. There are benign diffuse calcifications in both breasts. No significant masses, calcifications, or other findings are seen in either breast. IMPRESSION: BENIGN There is no mammographic evidence of malignancy. A 1 year screening mammogram is recommended. This exam was interpreted at Station ID: [id number]. NOTE: For mammograms, a report in lay terms will be sent to the patient. Approximately 15% of breast malignancies will not be visualized mammographically. In the management of a palpable breast mass, a negative mammogram must not discourage biopsy of a clinically suspicious lesion. Electronically Signed By: Hugh albert/vicky:01/12/2022 09:43:44 letter sent: Normal Exam ACR BI-RADS Category 2: Benign Finding(s) 3342F
== END ==
PROVIDERS: Family Provider Family Medicine; PCP Family Medicine; Referring Provider Family Medicine; Visit Provider Family Medicine
DX: Z12.31 Encounter for screening mammogram for malignant neoplasm of breast (principal)
CPT/HCPCS: 77063; 77067

== ENCOUNTER → 2022-01-14 17:15 | Outpatient (CLI) | payer OTHER, SELFPAY | PROVIDERS: Family Provider Family Medicine; PCP Family Medicine; Visit Provider Physician Assistant | DX: L98.9 Disorder of the skin and subcutaneous tissue, unspecified (principal) | CPT/HCPCS: 87070; 87205 ==

== ENCOUNTER → 2022-02-02 16:33 | Outpatient (CLI) | payer OTHER, SELFPAY ==
[2022-02-02 18:00] LABS: Hemoglobin A1C% w Est Avg Glu 9.4 % (4.0-6.0)
== END ==
PROVIDERS: Family Provider Family Medicine; PCP Family Medicine; Referring Provider Physician Assistant; Visit Provider Physician Assistant
DX: E11.65 Type 2 diabetes mellitus with hyperglycemia (principal)
CPT/HCPCS: 36415; 83036

== ENCOUNTER → 2022-02-12 11:48 | Outpatient (CLI) | payer OTHER, SELFPAY ==
[2022-02-12 12:36] LABS: COVID19 -Nasal RAPID Negative (Negative)
== END ==
PROVIDERS: Family Provider Family Medicine; PCP Family Medicine; Visit Provider Nurse Practitioner Family
DX: Z20.822 Contact with and (suspected) exposure to COVID-19 (principal)
CPT/HCPCS: 87635; C9803

== ENCOUNTER 2022-02-15 10:54 | Day surgery (SDC) | payer OTHER, SELFPAY ==
--- NOTE | 2022-02-15 | PATH_ITS ---
[facility] Accession Number: [id number] . 01 Material submitted: . PART A: stomach - ANTRUM PART B: gastrointestinal site - GASTRIC POLYP . 01 Diagnosis: A. Antrum, Biopsy: Gastric antral mucosa with minimal chronic inflammation. Negative for Helicobacter organisms by immunohistochemistry. Negative for intestinal metaplasia. Negative for dysplasia or malignancy. . B. Gastric Polyp, Biopsy: Fundic gland polyp. No evidence of Helicobacter organisms on H/E stain. Negative for intestinal metaplasia. Negative for dysplasia and malignancy. [facility] 02/19/2022 1444 Local . 01 Electronically signed: . Haroon Short MD, PhD, Pathologist NPI- [id number] . 01 Gross description: . Part A: ANTRUM: Received in formalin are 2 fragment(s) of pizarro, soft tissue measuring 0.1 x 0.1 x 0.1 cm to 0.4 x 0.2 x 0.2 cm submitted entirely in 1 cassette(s) Part B: GASTRIC POLYP: Received in formalin are 2 fragment(s) of pizarro, soft tissue measuring 0.3 x 0.2 x 0.2 cm to 0.5 x 0.5 x 0.4 cm submitted entirely in 1 cassette(s) /CARMEL[facility] 02/16/2022 1926 Local . 01 Microscopic: . A. An immunohistochemical stain was performed to evaluate for Helicobacter organisms and is negative. The control stain showed appropriate reactivity. . * This test was developed and its performance characteristics determined by [employer]. It has not been cleared or approved by the U.S. Food and Drug Administration. The FDA has determined that such clearance or approval is not necessary. This test is used for clinical purposes. It should not be regarded as investigational or for research. . 01 Pathologist provided ICD-10: R11.2, K29.70 . 01 CPT . 550789, 843161, S44594 Specimen Comment: A courtesy copy of this report has been sent to [phone] Performed at: 01 LabCounts include 234 beds at the [facility] Cyt[facility] [address] [place] [address], [place], [place] [id number] MD Hugh Alberto MD Phone: [phone]
[2022-02-15] MEDS: SODIUM CHLORIDE 0.9% 1,000 ML 100 ML IV (11:17)
[2022-02-15 11:21] VITALS: BP 117/79; PULSE 98; RESP 16; TEMP 36.7; O2SAT 98; BMI 52.0
--- NOTE | 2022-02-15 11:31 | PM.HP.1 ---
History of Present Illness History of Present Illness Date Patient Seen: 02/15/22 Time Patient Seen: 11:31 Chief complaint: EGD W/POSS BX Narrative: I reviewed Dr. Rg note. Persistent nausea vomiting for the last 4 months. Improved slightly with pantoprazole. Patient History Medical History Anemia Anxiety IBS (irritable bowel syndrome) Incomplete emptying of bladder Inflammatory bowel disease Kidney stone Left ureteral calculus Microscopic hematuria Poorly controlled diabetes mellitus URI (upper respiratory infection) Vaginal itching Surgical History Status post appendectomy (1996) Status post delivery (1997) Status post delivery (2001) Status post cholecystectomy (1997) Family & Social History Family History Father CAD (coronary artery disease) CVA (cerebral vascular accident) Mother Lung cancer Grandfather Lung cancer Sister Diabetes mellitus Social History: household members spouse,children Tobacco & Substance use: Smoking Status Never smoker alcohol intake never alcohol intake frequency 0-2 drinks per day Substance Use Type does not use Meds Home Medications and Allergies Home Medications Medication Instructions Recorded Confirmed Type blood-glucose meter (Blood Glucose #1 each 03/13/18 02/02/22 Rx Monitoring) blood sugar diagnostic (Blood #50 each 05/01/18 02/02/22 Rx Glucose Test) lancets 33 gauge #100 each 06/15/18 02/02/22 Rx metformin 500 mg tablet,extended 1,000 mg PO BID #120 tab 04/08/21 02/02/22 Rx release 24 hr DISABLED PARKING PERMIT #1 ea 06/25/21 02/02/22 Rx Lactobacillus acidophilus 1 tab PO DAILY 07/14/21 02/02/22 History [Acidophilus] coenzyme Q10 [CoQ-10] 1 tab PO DAILY 07/14/21 02/02/22 History magnesium 1 tab PO DAILY 07/14/21 02/02/22 History multivitamin 1 tab PO DAILY 07/14/21 02/02/22 History omega-3 fatty acids [Fish Oil 1 cap PO DAILY 07/14/21 02/02/22 History Concentrate] turmeric PO DAILY 07/14/21 02/02/22 History atorvastatin 10 mg tablet (Lipitor) 10 mg PO DAILY #90 tab 12/24/21 02/02/22 Rx hyoscyamine sulfate 0.125 mg tablet 0.125 mg PO Q8H PRN tab 12/24/21 02/02/22 History lisinopril 20 mg tablet 20 mg PO DAILY #90 tab 12/24/21 02/02/22 Rx pantoprazole 20 mg tablet,delayed 20 mg PO BID tab 12/24/21 02/02/22 History release semaglutide 7 mg tablet 7 mg PO DAILY #90 tab 12/24/21 02/02/22 Rx citalopram 20 mg tablet See Rx Instructions .ROUTE 01/05/22 02/02/22 Rx .COMPLEX #45 tab fluconazole 150 mg tablet 150 mg PO Q3D #3 tab 02/02/22 02/02/22 Rx nystatin 100,000 unit/gram topical 1 applic TOPICAL BID #30 g 02/02/22 02/02/22 Rx cream Free Style Raissa 2 #2 ea 02/03/22 Rx glyburide 5 mg tablet See Rx Instructions .ROUTE 02/08/22 Rx .COMPLEX #60 tab levonorgestrel 0.15 mg-ethinyl 1 tab PO DAILY #112 tab 02/08/22 Rx estradiol 0.03 mg tablet (Levora-28) Allergies Allergy/AdvReac Type Severity Reaction Status Date / Time clindamycin [CLINDAMYCIN] Allergy Intermediate Rash Verified 02/15/22 11:32 sulfamethoxazole AdvReac Mild Vomiting Verified 02/15/22 11:32 [From ] trimethoprim [From ] AdvReac Unknown Vomiting Verified 02/15/22 11:32 copper AdvReac Skin Verified 02/15/22 11:32 itches, color change upon contact Review of Systems Review of Systems ROS: Yes All systems reviewed with the patient and are negative except as otherwise documented Exam Vital Signs (past 8 hours): - 02/15/22 11:21 Temperature 98.1 F Pulse Rate 98 H Respiratory Rate 16 Blood Pressure 117/79 Pulse Oximetry 98 Oxygen Delivery Method Room Air Const General: cooperative and comfortable Nutritional Appearance: obese Orientation: alert [facility] Head: normocephalic Ears: external ears normal Nose: external nose normal Face and sinus: normal facial exam Mouth: oral mucosae normal Eyes General: appearance normal, both eyes and all related structures Neck Neck: normal visual inspection Chest Chest: normal inspection of the chest Resp Effort & Inspection: normal respiratory effort Cardio Rate: regular rate GI Inspection: normal to inspection Skin General: no rashes or lesions noted and No jaundice Neuro General: patient alert and moves all extremities Cognition: normal cognition Speech: speech normal Extrem General: no pedal edema Psych Appearance: grossly normal Assessment & Plan Assessment & Plan narrative: 41-year-old female with nausea vomiting unclear etiology. EGD is pursued today. Time Spent With Patient Critical Care time: I spent a total of [] minutes of critical care time on this patient's care today; this time is exclusive of procedural time.
--- NOTE | 2022-02-15 11:33 | PM.PREOP ---
Pre-operative Note COVID-19 COVID-19 status: Negative Result date/Date tested (Pos, Neg/Pending): 02/12/22 Criteria for continued procedure: Possibility delay results in more complex future surgery or treatment Interval Note History & Physical reviewed/Exam performed by Physician: Yes Changes to H&P: No ASA Class (for procedural sedation): III
--- NOTE | 2022-02-15 13:19 | P.OP.EGD_ITS ---
Operative Date/Time/Diagnoses Date of procedure: 02/15/22 Time of procedure: 13:19 Pre-op diagnosis: Nausea vomiting x4 months. Post-op diagnosis: same Procedure & Clinicians Study performed: EGD with biopsies Same procedure as scheduled: Yes Indications: Nausea vomiting x4 months Surgeon: Pascual Rivas Procedure Notes SCOAP/Timeout: Done Procedure in detail: After the risks and benefits were explained, written and verbal informed consent was obtained. The patient was brought into the procedure room and placed into the left lateral decubitus position. Please see nurse hospice spiritual care coordinator notes for sedation details. This study was accomplished under general anesthesia with endotracheal intubation for airway protection. The scope was introduced into the mouth through the bite block and advanced under direct visualization to the 2nd portion of the duodenum. The scope was slowly withdrawn carefully examining the mucosa for any defects or lesions. Retroflexed views were accomplished in the stomach. The stomach was decompressed, the scope was then removed from the patient who tolerated the procedure well. Sedation minutes: 10 Complications: none Impression: 1. Duodenum: This was normal from the bulb through to the 2nd portion. No ulcers no strictures no mass lesions. Normal colon bile stained mucosa. 2. Stomach: Patient had a J-shaped stomach. There was mild gastropathy characterized by some erythema in the antrum. Biopsies were acquired for exclusion of Helicobacter or other pathology. No ulcers no outlet obstruction no mass lesions. Retroflexed views of the LES were unremarkable. There were a few small benign-appearing gastric polyps. One of the larger polyps perhaps 7 mm in greatest dimension was removed with cold forceps. 3. Esophagus: The squamocolumnar junction correlated with the top of the gastric folds. The GEJ was at 35 cm from the incisors. No acute erosive changes no strictures no mass lesions. The esophagus was normal throughout. Endoscopic diagnosis 1. Mild gastropathy 2. Gastric polyps 3. Otherwise visually normal appearing upper endoscopy Post-procedure Plan for aftercare: 1. Await histopathology. 2. If there is no evidence of Helicobacter pylori then I would recommend further abdominal imaging to exclude fecal loading. 3. I would additionally recommend updated blood work and biliary imaging to exclude intermittently obstructing retained CBD stone. (the patient has already had cholecystectomy). Disposition: PACU
[2022-02-15 13:30] VITALS: BP 98/66; PULSE 104; RESP 16; TEMP 36.8; O2SAT 97
[2022-02-15 13:35] VITALS: BP 97/63; PULSE 100; RESP 19; O2SAT 94
[2022-02-15 13:40] VITALS: BP 95/66; PULSE 99; RESP 14; O2SAT 98
[2022-02-15 13:54] VITALS: BP 98/66; PULSE 98; RESP 16; TEMP 36.8; O2SAT 98
== END 2022-02-15 14:04 | disposition home or self-care (01) ==
PROVIDERS: Family Provider Family Medicine; PCP Family Medicine; Referring Provider Internal Medicine Gastroenterology; Visit Provider Internal Medicine Gastroenterology
PROC: 0DJ08ZZ Inspection of Upper Intestinal Tract, Via Natural or Artificial Opening Endoscopic (ICD-10-PCS; CPT 43235; principal; 2022-02-15 12:30)
DX: R11.2 Nausea with vomiting, unspecified (principal); K58.9 Irritable bowel syndrome, unspecified; E11.9 Type 2 diabetes mellitus without complications; Z79.84 Long term (current) use of oral hypoglycemic drugs; F41.9 Anxiety disorder, unspecified; K31.9 Disease of stomach and duodenum, unspecified; K31.7 Polyp of stomach and duodenum; K29.50 Unspecified chronic gastritis without bleeding
CPT/HCPCS: 43239; J0330; J2405; J2704

== ENCOUNTER → 2022-02-23 15:46 | Outpatient (CLI) | payer OTHER, SELFPAY ==
[2022-02-23 16:06] LABS: COVID19 -Nasal RAPID Negative (Negative)
== END ==
PROVIDERS: Family Provider Family Medicine; PCP Family Medicine; Visit Provider Physician Assistant
DX: Z20.822 Contact with and (suspected) exposure to COVID-19 (principal)
CPT/HCPCS: 87635

== ENCOUNTER → 2022-02-26 07:45 | Outpatient (CLI) | payer OTHER, SELFPAY ==
[2022-02-26 08:39] LABS: Alanine Aminotransferase 26 IU/L (<35); Albumin 3.9 g/dL (3.5-5.0); Albumin Globulin Ratio 1.3 (1.0-2.8); Alkaline Phosphatase 61 U/L (38-126); Aspartate Aminotransferase 37 IU/L (14-36); Bilirubin Total 0.5 mg/dL (0.2-1.3); Bilirubin Unconjugated 0.4 mg/dL (0.0-1.1); Globulin 2.9 g/dL (1.7-4.1); HEMOLYSIS < 15 (0-50); Lipase 262 U/L (23-300); Total Protein 6.8 g/dL (6.3-8.2)
== END ==
PROVIDERS: Family Provider Family Medicine; PCP Family Medicine; Referring Provider Internal Medicine; Visit Provider Internal Medicine
DX: R11.2 Nausea with vomiting, unspecified (principal)
CPT/HCPCS: 36415; 80076; 83690

== ENCOUNTER → 2022-03-03 14:15 | Outpatient (CLI) | payer OTHER, SELFPAY ==
--- NOTE | 2022-03-03 14:17 | DI.MRI.S_ITS ---
PROCEDURE: MR KNEE LT WO CON INDICATIONS: Pain in left knee TECHNIQUE: Noncontrast sagittal PD fast spin echo and T2 fast spin echo with fat saturation, sagittal 3-D FLASH with fat saturation; coronal T1 spin echo and PD fast spin echo with fat saturation, and axial PD fast spin echo with fat saturation through the knee. COMPARISON: [facility], MR, MR KNEE LT WO CON, 04/08/2021, 16:18. [facility], CR, XR KNEE ARTHRITIC SERIES LT, 02/18/2022, 13:27. FINDINGS: Image quality: Excellent. Menisci: Medial extrusion of the medial meniscus is present, as before. Linear oblique high signal intensity traverses the inner and peripheral 3rd medial meniscal body and posterior horn, demonstrating inferior articular surface extension, indicating oblique tearing. Radial tearing of the posterior horn medial meniscus at the meniscal root ligament insertion site is present. There is amorphous high signal intensity within the inner 3rd of the lateral meniscal body, demonstrating superior and inferior articular surface extension, indicating degenerative tearing. Cruciate ligaments: The anterior and posterior cruciate ligaments appear intact. Medial structures: The medial collateral ligament appears intact. Visualized portions of the pes anserinus tendons appear normal. No abnormal bursal fluid. Lateral structures: The lateral collateral ligament, long and short heads of the biceps femoris tendon appear intact. The popliteus tendon appears normal. Iliotibial band appears normal. Anterior structures: The quadriceps and patellar tendons appear intact. Mild lateral patellar subluxation. Mild lateral ventral trochlear prominence. Mild edema in the superolateral aspect of the infrapatellar fat pad. Bones and cartilage: No bone marrow contusions or fractures. Mild subchondral degenerative marrow edema within the mid weight-bearing aspect of the medial femoral condyle and medial tibial plateau. Mild tricompartmental periarticular osteophyte formation. Severe articular cartilage loss diffusely overlies the weight-bearing aspects of the medial femoral condyle and medial tibial plateau. Articular cartilage fibrillation overlies the medial and lateral patellar facets. Joint space: There is a small knee joint effusion and a small Mondragon's cyst. Normal appearing synovial plicae are incidentally noted. IMPRESSION: 1. Tricompartmental osteoarthritis with associated articular cartilage loss. 2. Medial and lateral meniscal tearing. 3. Findings consistent with lateral patellofemoral friction syndrome in the appropriate clinical setting. There is associated lateral ventral trochlear prominence . 4. Knee joint effusion and Mondragon's cyst. Dictated by: Julian Gleason M.D. on 03/03/2022 at 15:08 Approved by: Julian Gleason M.D. on 03/03/2022 at 16:48
== END ==
PROVIDERS: Family Provider Family Medicine; PCP Family Medicine; Referring Provider Orthopaedic Surgery; Visit Provider Orthopaedic Surgery
DX: S83.242A Other tear of medial meniscus, current injury, left knee, initial encounter (principal); S83.282A Other tear of lateral meniscus, current injury, left knee, initial encounter; M25.462 Effusion, left knee; M71.22 Synovial cyst of popliteal space [Baker], left knee; M25.562 Pain in left knee; M94.262 Chondromalacia, left knee
CPT/HCPCS: 73721

== ENCOUNTER → 2022-03-17 15:30 | Outpatient (CLI) | payer OTHER, SELFPAY ==
--- NOTE | 2022-03-23 11:24 | DIAB.MNT ---
Initial Diabetes Medical Nutrition Therapy Assessment Name: Janelle Lo (Monica) Date: 03/17/22 Time: 335-5p Dx: Type II Diabetes Monica presents today for initial visit regarding T2Dm. Endorses PMH of DM since 2018. +FH with sister and both parents. States she has been making an effort to reduce carb intake. Taking meds as rx'd. h/o trying Jardiance but experienced yeast infections for about 8 months as a result. Reports +25-30# since Aug 2020. Attributes this mostly due to reduction in physical activity r/t knee injury. Reports her UBW prior to injury was 250s# uses [employer] Diet Recall: 730-9a: bagel and eggs with cheese, sausage 12p: open faced egg sandwich sn: +/- rare, fruit or apple and pb or cheese or cottage cheese with berries 6-10p: 2c chicken chili with corn bread (90g CHO) tacos with beef and turkey, 2c pasa with meat and cheese and veggies Anthropometrics: Ht: 61 Wt: 267.5# Physical Activity: Enjoys hiking but limited by knee injury. Tries to incorporate some hiking, but not as frequent or as long as previous. Does not like to swim. Self-Monitoring Blood Glucose: Monica is experiencing pretty consistent hyperglycemia. Her time in range is <75%. 7 day average is 195 mg/dL H. 7 day in range 40% 181-240 mg/dL: 46% >240 mg/dL: 14% FB, 197, 201 (3/3 high) pre meal: 196, 174, 135, 232, 165, 155, 164 (6/7 high) highest readings: 250 (midnight snacking) and 314 (camping burger and fries) Diabetes Medications: Metformin 1000mg BID Glyburide 5mg BID Rybelsus (semaglutide) 7mg HS Pertinent Labs: 8% Hga1c Past Medical History: (Last Reviewed 02/15/22 @ 11:31 by Pascual Rivas MD) Anemia Anxiety IBS (irritable bowel syndrome) Incomplete emptying of bladder Inflammatory bowel disease Kidney stone Left ureteral calculus Microscopic hematuria Poorly controlled diabetes mellitus URI (upper respiratory infection) Vaginal itching Nutrition Rx: Carbohydrates: Daily:150-165g Meal:45g Snack:15g Nutrition Diagnosis: - Excessive CHO intake r/t nutrition related knowledge deficit aeb diet recall and pt report - Physical inactivity r/t knee injury aeb pt report Intervention: This participant was very receptive. Provided appropriate educational handouts. Discussed the following topics: Completed intake assessment. Discussed barriers to care. Pathophysiology of T2DM HgA1c, its correlation to blood glucose numbers, and rationale for goal BG review and trends and goals Plate Method, impact of macronutrients on blood sugar, meal timing, carbohydrate counting, pairing macronutrients and spreading out carbohydrates for better blood glucose management Recommended servings for carbohydrates at meals and snacks Heart health nutrition Brainstormed appropriate meal plan based on food preferences Role of physical activity and following provider guidelines for safety Created SMART goals for patient self-care and success. Goals: Bring paperwork next visit Check BG 1-2 hours after a meal to see how food impacts Measure carb portions Follow-up: [facility] follow-up in 3-4 weeks Ita Tilley RDN, ANABEL Certified Diabetes Care and Floor Surfacer P: [phone] Thank you for this referral
== END ==
PROVIDERS: Family Provider Family Medicine; PCP Family Medicine; Referring Provider Family Medicine; Visit Provider Family Medicine
DX: E11.9 Type 2 diabetes mellitus without complications (principal); Z71.3 Dietary counseling and surveillance; Z79.84 Long term (current) use of oral hypoglycemic drugs
CPT/HCPCS: 97802

== ENCOUNTER → 2022-03-18 07:06 | Outpatient (CLI) | payer OTHER, SELFPAY ==
--- NOTE | 2022-03-18 | DI.RAD.S_ITS ---
PROCEDURE: XR ABDOMEN MIN 2V INDICATIONS: Nausea with vomiting, unspecified TECHNIQUE: 2 views of the abdomen were acquired. COMPARISON: [facility], CT, CT KIDNEY URETER BLADDER (KUB), 07/05/2021, 15:00. FINDINGS: Surgical changes and devices: Cholecystectomy clips. Surgical clips also project over the pelvis. Bowel: No pneumoperitoneum. No pathologically dilated loops of bowel demonstrated, however there is a paucity of small bowel gas. A large amount of stool is present in the colon. Soft tissues: Unremarkable. Bones: No suspicious bony abnormalities. IMPRESSION: No pathologically dilated gas-filled loops of bowel are demonstrated, however there is a paucity of small bowel gas and fluid-filled dilated loops of bowel could be present and radiographically occult. If clinically indicated, CT of the abdomen and pelvis could be obtained for further evaluation. Dictated by: Joel Carrillo M.D. on 03/18/2022 at 11:36 Approved by: Joel Carrillo M.D. on 03/18/2022 at 12:08
--- NOTE | 2022-03-18 | DI.US.S_ITS ---
PROCEDURE: US ABDOMEN COMPLETE INDICATIONS: NAUSEA WITH VOMITTING TECHNIQUE: Real-time scanning was performed of the abdominal and retroperitoneal organs, with image documentation. COMPARISON: None. FINDINGS: Liver: Diffuse moderate to severe hepatic steatosis. Gallbladder: Cholecystectomy. Biliary ducts: Intrahepatic bile ducts are non-dilated. Extrahepatic bile duct caliber measures 6 mm. Pancreas: Visualized portions of the pancreas are sonographically normal. Spleen: Spleen is normal in size and homogeneous in echotexture. Kidneys: Normal size and appearance of both kidneys. No shadowing calculus or hydronephrosis. Aorta: Obscured by bowel gas. Iliacs: Obscured by bowel gas. IVC: Obscured by bowel gas. Miscellaneous: No free abdominal fluid. IMPRESSION: Technically limited exam due to patient body habitus and obscuration by bowel gas. Moderate to severe hepatic steatosis. Dictated by: Sahil Tejeda M.D. on 03/18/2022 at 8:42 Approved by: Sahil Tejeda M.D. on 03/18/2022 at 8:44
== END ==
PROVIDERS: Family Provider Family Medicine; PCP Family Medicine; Referring Provider Internal Medicine Gastroenterology; Visit Provider Internal Medicine Gastroenterology
DX: R11.2 Nausea with vomiting, unspecified (principal); K76.0 Fatty (change of) liver, not elsewhere classified; Z90.49 Acquired absence of other specified parts of digestive tract
CPT/HCPCS: 74019; 76700

== ENCOUNTER → 2022-03-23 09:18 | Outpatient (CLI) | payer OTHER, SELFPAY ==
[2022-03-23 10:51] LABS: BUN Creatinine Ratio 13.8 (6-22); Blood Urea Nitrogen 8 mg/dL (7-17); Calcium 9.2 mg/dL (8.4-10.2); Carbon Dioxide 26 mmol/L (22-32); Chloride 104 mmol/L (98-107); Estimated Glomerular Filt Rate > 60 mL/min (>60); Glucose 159 mg/dL (70-100); HEMOLYSIS < 15 (0-50); Potassium 4.7 mmol/L (3.4-5.1); Sodium 137 mmol/L (137-145)
[2022-03-23 11:20] LABS: Hemoglobin A1C% w Est Avg Glu 7.8 % (4.0-6.0)
== END ==
PROVIDERS: Family Provider Family Medicine; PCP Family Medicine; Referring Provider Family Medicine; Visit Provider Family Medicine
DX: E11.9 Type 2 diabetes mellitus without complications (principal)
CPT/HCPCS: 36415; 80048; 83036

== ENCOUNTER → 2022-04-15 15:34 | Outpatient (CLI) | payer OTHER, SELFPAY ==
--- NOTE | 2022-04-22 14:04 | DIAB.MNTFU ---
Follow-up Diabetes Medical Nutrition Therapy Assessment Name: Janelle Lo (Monica) Date: 04/15/22 Time: 340-430p Dx: Type II Diabetes Monica reports reducing carb portions and making dinners more nutritious. This includes measuring carb portions, ie pasta. Reviewing blood sugars, she is having hyperglycemia from 12-3am. Brianna phenomenon vs late dinners/high carbs. Reports dinner is often between 6-10p. Endorses recommended portions, so seems more likely hormone related. Difficult to try HS snack given meal timing on later days. Dinner examples: burger with small bun or fish with measured rice and veggies Has increased semaglutide to 14 mg. Anthropometrics: Ht: 61 Wt: 265# Weight history: Last visit: 267.5# Physical Activity: Endorses increased activity with yard work and recent vacation. Has orthopedic f/u this month for knee. States she can walk flat surfaces for hours, but elevations make hiking a challenge. Self-Monitoring Blood Glucose: Improved CGM results. Today she has a 76% TIR compared to the 40% last visit. Goal is at least 75% in goal. Today 7 day average 76% in goal 24% --181-240 mg/dL 0% -- >240 mg/dL Last visit: 7 day average 40% in goal 46% -- 181-240 mg/dL 14% -- >240 mg/dL Diabetes Medications: Metformin 1000mg BID Glyburide 5mg BID Rybelsus (semaglutide) 14mg HS Pertinent Labs: 8% Hga1c Past Medical History: (Last Reviewed 02/15/22 @ 11:31 by Pascual Rivas MD) Anemia Anxiety IBS (irritable bowel syndrome) Incomplete emptying of bladder Inflammatory bowel disease Kidney stone Left ureteral calculus Microscopic hematuria Poorly controlled diabetes mellitus URI (upper respiratory infection) Vaginal itching Nutrition Rx: Carbohydrates: Daily:150-165g Meal:45g Snack:15g Nutrition Diagnosis: - Excessive CHO intake r/t nutrition related knowledge deficit aeb diet recall and pt report- improved - Physical inactivity r/t knee injury aeb pt report - in progress Intervention: This participant was very receptive. Provided appropriate educational handouts. Discussed the following topics: Blood sugar review and trends. Impact of food, meds, and hormones on results. Brianna phenomenon in detail Dinner carb review and tx (meds v physical activity v HS snack) Physical activity plan and progress, what is doable for her Created a list of safe walks for her Created SMART goals for patient self-care and success. Goals: Bring paperwork next visit- met Check BG 1-2 hours after a meal to see how food impacts- met Measure carb portions- met Hike flat ground or walk 1 day per week safely - new Follow-up: JULES LITTLE follow-up in 3-4 weeks. Topics next visit based on assessment and paperwork: BG management, hiking, stress management Ita Tilley RDN, ANABEL Certified Diabetes Care and Wood Handler P: [phone] Thank you for this referral
== END ==
PROVIDERS: Family Provider Family Medicine; PCP Family Medicine; Referring Provider Family Medicine; Visit Provider Family Medicine
DX: E11.65 Type 2 diabetes mellitus with hyperglycemia (principal); Z71.3 Dietary counseling and surveillance; Z79.84 Long term (current) use of oral hypoglycemic drugs
CPT/HCPCS: 97803

== ENCOUNTER → 2022-05-12 15:36 | Outpatient (CLI) | payer OTHER, SELFPAY ==
--- NOTE | 2022-05-24 14:35 | DIAB.FU ---
Follow-up Diabetes Education Assessment Name: Janelle Lo (Monica) Date: 05/12/22 Time: 350-435p Dx: Type II Diabetes Monica presents for Dm follow-up. Reports she is down 20# since September. Reports being more mindful of hunger/fullness and trying not to fill her plate full. BG are much improved with 100% in goal over the last 7 days per freestyle natalio. Does report h/o anxiety, managed with medications and breathing/meditation. Practices daily meditation. Endorses small HS snack each night of 6-8 mini rice cakes. Overall feels her DM mgmnt is going well. Anthropometrics: Ht: 61 Wt: 260# at [facility] appt on 04/22 (declined wt in clinic today) Weight history: Physical Activity: Increased activity with moving daughter into her new home, walking at [facility], and yard work. Endorses 13k steps twice since last visit. has knee sx on 06/08. Plans to use treadmill in cooler months. Self-Monitoring Blood Glucose: Great improvement since last visit per freestyle natalio. Today 7 day average 100% in goal 0% elevations Last visit 7 day average 76% in goal 24% --181-240 mg/dL 0% -- >240 mg/dL 03/23 visit: 7 day average 40% in goal 46% -- 181-240 mg/dL 14% -- >240 mg/dL Diabetes Medications: Metformin 1000mg BID Glyburide 5mg BID Rybelsus (semaglutide) 14mg HS Pertinent Labs: 03/23/22 7.8% 03/16/22 8% 02/02/22 9.4% Past Medical History: (Last Reviewed 02/15/22 @ 11:31 by Pascual Rivas MD) Anemia Anxiety IBS (irritable bowel syndrome) Incomplete emptying of bladder Inflammatory bowel disease Kidney stone Left ureteral calculus Microscopic hematuria Poorly controlled diabetes mellitus URI (upper respiratory infection) Vaginal itching Intervention: This participant was very receptive. Provided appropriate educational handouts. Discussed the following topics: Recent blood sugar results and trends Review of general nutrition recommendations and current intake Physical activity plan and impact on blood sugars Stress management and impact on BG Created SMART goals for patient self-care and success. Goals: Hike flat ground or walk 1 day per week safely - not met Check out box breathing videos on intranet- new Follow-up: JULES LITTLE follow-up in 3 months for check-in and discuss cold weather diet/exercise Ita Tilley, JULES, [facility] Certified Diabetes Care and Geochemical Laboratory Technician P: [phone] Thank you for this referral
== END ==
PROVIDERS: Family Provider Family Medicine; PCP Family Medicine; Referring Provider Family Medicine; Visit Provider Family Medicine
DX: E11.9 Type 2 diabetes mellitus without complications (principal); Z71.3 Dietary counseling and surveillance; Z79.84 Long term (current) use of oral hypoglycemic drugs
CPT/HCPCS: G0108

== ENCOUNTER → 2022-06-24 09:01 | Outpatient (CLI) | payer OTHER, SELFPAY ==
[2022-06-24 10:47] LABS: Add Manual Diff / Slide Review NO; Basophils Absolute Auto 100 /uL (0-100); Basophils Percent Auto 0.8 % (0-2); Eosinophils Absolute Auto 200 /uL (0-450); Eosinophils Percent Auto 2.1 % (2-4); Hematocrit 38.9 % (36-46); Hemoglobin 13.4 g/dL (12.0-16.0); Lymphocytes Absolute Auto 3400 /uL (1100-4500); Lymphocytes Percent Auto 28.7 % (25-40); Mean Corpuscular HGB Conc 34.4 % (30-36); Mean Corpuscular Hemoglobin 30.2 PG (26-34); Mean Corpuscular Volume 87.8 fL (80-100); Monocytes Absolute Auto 800 /uL (0-900); Monocytes Percent Auto 6.9 % (3-14); Neutrophils Absolute Auto 7300 /uL (1500-7000); Neutrophils Percent Auto 61.5 % (50-75); Platelet Count 368 X10^3/uL (150-400); Red Blood Cell Count 4.42 X10^6/uL (4.0-5.2); White Blood Cell Count 11.8 X10^3/uL (4.5-11.0)
[2022-06-24 11:03] LABS: Hemoglobin A1C% w Est Avg Glu 5.8 % (4.0-6.0)
[2022-06-24 11:09] LABS: Alanine Aminotransferase 29 IU/L (<35); Albumin 4.3 g/dL (3.5-5.0); Albumin Globulin Ratio 1.4 (1.0-2.8); Alkaline Phosphatase 67 U/L (38-126); Aspartate Aminotransferase 25 IU/L (14-36); Bilirubin Total 0.5 mg/dL (0.2-1.3); Blood Urea Nitrogen 19 mg/dL (7-17); Calcium 9.4 mg/dL (8.4-10.2); Carbon Dioxide 21 mmol/L (22-32); Chloride 100 mmol/L (98-107); Cholesterol 129 mg/dL (140-199); Estimated Glomerular Filt Rate > 60 mL/min (>60); Glucose 127 mg/dL (70-100); HDL Cholesterol 39 mg/dL (40-60); HEMOLYSIS < 15 (0-50); LDL Cholesterol Calculated 50 mg/dL (<100); Potassium 4.1 mmol/L (3.4-5.1); Sodium 137 mmol/L (137-145); Total Protein 7.3 g/dL (6.3-8.2); Triglycerides 202 mg/dL (35-150)
[2022-06-24 11:32] LABS: Thyroid Stimulating Hormone 2.22 uIU/mL (0.47-4.68)
== END ==
PROVIDERS: Family Provider Family Medicine; PCP Family Medicine; Referring Provider Family Medicine; Visit Provider Family Medicine
DX: E11.65 Type 2 diabetes mellitus with hyperglycemia (principal); I10 Essential (primary) hypertension; Z13.220 Encounter for screening for lipoid disorders; Z13.29 Encounter for screening for other suspected endocrine disorder
CPT/HCPCS: 36415; 80053; 80061; 83036; 84443; 85025

== ENCOUNTER → 2022-07-26 11:34 | Outpatient (CLI) | payer OTHER, SELFPAY ==
[2022-07-26 15:50] LABS: Hepatitis B Surface Antigen NEGATIVE s/c (NEGATIVE)
[2022-07-26 16:05] LABS: HIV 1 & 2 Ab/Ag 4th Gen Combo NEGATIVE (NEGATIVE); Hep C Virus Ab w/Reflex Quant NEGATIVE s/c (NEGATIVE)
[2022-07-26 19:22] LABS: Urine N gonorrhoeae NOT DETECTED
[2022-07-26 19:59] LABS: Urine Chlamydia NOT DETECTED
== END ==
PROVIDERS: Family Provider Family Medicine; PCP Family Medicine; Referring Provider Family Medicine; Visit Provider Family Medicine
DX: Z11.3 Encounter for screening for infections with a predominantly sexual mode of transmission (principal)
CPT/HCPCS: 36415; 86803; 87340; 87389; 87491; 87591

== ENCOUNTER → 2022-07-30 14:54 | Outpatient (CLI) | payer OTHER, SELFPAY | PROVIDERS: Family Provider Family Medicine; PCP Family Medicine; Referring Provider Internal Medicine; Visit Provider Internal Medicine | DX: Z23 Encounter for immunization (principal) | CPT/HCPCS: 90471; 90686 ==

== ENCOUNTER → 2022-08-11 15:30 | Outpatient (CLI) | payer OTHER, SELFPAY ==
--- NOTE | 2022-08-13 10:45 | DIAB.FU ---
Addendum entered by Ita Tilley 08/13/22 11:06: Checked Monica's chart and saw an rx for a meter and lancets. Called and asked her to chat with her pharmacy about filling or discuss with PCP about resending the rx prn. Then she will confirm any lows in the next few weeks and message me results. If having true lows, may benefit from reduced glyburide. Original Note: Follow-up Diabetes Education Assessment Name: Janelle Lo (Monica) Date: 08/11/22 Time: 330-4p Dx: Type II Diabetes Monica presents today for diabetes follow-up. Drastic HgA1c reduction to 5.8% from 7.8%. Reports 50# weigh loss since the beginning of this year. Monica reports recent separation from her . Denies changes in appetite associated with this change. Endorses healthier eating habits now that she can prepare meals for herself. Endorses stress management with meditation, talking with friends. Has recently increased vegetable intake and reduced meat intake. Sometimes experiencing some lows per CGM. Does not currently have a meter to confirm. Anthropometrics: Wt: 230# reported Weight history: 260# reported in March 2022 Physical Activity: Knee sx completed in May. States her knee is feeling good. Able to walk 15-60minutes 4 days per week. Self-Monitoring Blood Glucose: [place] 80-130mg/dL, in goal. BG throughout the day 65-100mg/dL. May benefit from reduction in glyburide to reduce risk of lows. CGM 7 day averages Today 7 day average 92% in goal 1% elevated 7% <70 05/12/2022 visit: 100% in goal 0% elevations 0% lows 04/22/22 visit: 24% --181-240 mg/dL 76% in goal 0% lows 03/23/2022 visit: 7 day average 40% in goal 46% -- 181-240 mg/dL 14% -- >240 mg/dL Diabetes Medications: Metformin 1000mg BID Glyburide 5mg BID Rybelsus (semaglutide) 14mg HS Pertinent Labs: 06/24/22 5.8% 03/23/22 7.8% 03/16/22 8% 02/02/22 9.4% Past Medical History: (Last Reviewed 02/15/22 @ 11:31 by Pascual Rivas MD) Anemia Anxiety IBS (irritable bowel syndrome) Incomplete emptying of bladder Inflammatory bowel disease Kidney stone Left ureteral calculus Microscopic hematuria Poorly controlled diabetes mellitus URI (upper respiratory infection) Vaginal itching Intervention: This participant was very receptive. Provided appropriate educational handouts. Discussed the following topics: Recent blood sugar results and trends Medication management: potential for decreased glyburide if experiencing true lows Hypoglycemia s/s and treatment with Rule of 15 prn Importance of a meter to confirm lows Stress management Physical activity plan and impact on blood sugars Created SMART goals for patient self-care and success. Goals: Get glucose meter to confirm lows- new Practice Rule of 15 prn- new Follow-up: JULES LITTLE follow-up prn. Monica is managing her DM very well. Encouraged her to reach out for any follow-up needs or questions. This RD/ANABEL will contact PCP for consideration of reduced glyburide and meter rx. Ita Tilley, JULES, ANABEL Certified Diabetes Care and City Constable P: [phone] Thank you for this referral
== END ==
PROVIDERS: Family Provider Family Medicine; PCP Family Medicine; Referring Provider Family Medicine; Visit Provider Family Medicine
DX: E11.9 Type 2 diabetes mellitus without complications (principal); Z79.84 Long term (current) use of oral hypoglycemic drugs; Z71.3 Dietary counseling and surveillance
CPT/HCPCS: G0108

== ENCOUNTER → 2022-11-29 07:00 | Outpatient (CLI) | payer OTHER, SELFPAY ==
[2022-11-29 08:40] LABS: Alanine Aminotransferase 20 IU/L (<35); Albumin 3.9 g/dL (3.5-5.0); Albumin Globulin Ratio 1.3 (1.0-2.8); Alkaline Phosphatase 54 U/L (38-126); Aspartate Aminotransferase 20 IU/L (14-36); BUN Creatinine Ratio 11.3 (6-22); Bilirubin Total 0.2 mg/dL (0.2-1.3); Blood Urea Nitrogen 9 mg/dL (7-17); Calcium 8.8 mg/dL (8.4-10.2); Carbon Dioxide 23 mmol/L (22-32); Chloride 105 mmol/L (98-107); Cholesterol 143 mg/dL (140-199); Estimated Glomerular Filt Rate > 60 mL/min (>60); Glucose 138 mg/dL (70-100); HDL Cholesterol 45 mg/dL (40-60); HEMOLYSIS < 15 (0-50); LDL Cholesterol Calculated 66 mg/dL (<100); Potassium 4.4 mmol/L (3.4-5.1); Sodium 139 mmol/L (137-145); Total Protein 6.9 g/dL (6.3-8.2); Triglycerides 160 mg/dL (35-150)
== END ==
PROVIDERS: Family Provider Family Medicine; PCP Family Medicine; Referring Provider Family Medicine; Visit Provider Family Medicine
DX: E11.9 Type 2 diabetes mellitus without complications (principal); E78.5 Hyperlipidemia, unspecified; I10 Essential (primary) hypertension
CPT/HCPCS: 36415; 80053; 80061; 83036

== ENCOUNTER → 2023-01-15 09:44 | Outpatient (CLI) | payer OTHER, SELFPAY ==
--- NOTE | 2023-01-15 09:45 | DI.MG.S_ITS ---
BILATERAL DIGITAL SCREENING MAMMOGRAM 3D/2D WITH CAD: 01/15/2023 CLINICAL: Routine screening. Comparison is made to exam dated: 01/11/2022 mammogram - [facility]. There are scattered areas of fibroglandular density in both breasts (category b / 25%-50% glandular tissue). Current study was also evaluated with a Computer Aided Detection (CAD) system. There is an asymmetry in the right breast posterior depth central to the nipple seen on the craniocaudal view only. This is more prominent. There is an asymmetry in the left breast middle depth superior region seen on the mediolateral oblique view only. This is more prominent. No other significant masses or calcifications are seen in either breast. IMPRESSION: INCOMPLETE: NEEDS ADDITIONAL IMAGING EVALUATION The asymmetry in the right breast posterior depth central to the nipple seen on the craniocaudal view only is indeterminate. Additional views with possible ultrasound are recommended. The asymmetry in the left breast middle depth superior region seen on the mediolateral oblique view only is indeterminate. Additional views with possible ultrasound are recommended. Based on the Tyrer Cuzick model (a risk assessment model) the patient's lifetime risk is 6.8% and her 10 year risk is 1.1%. According to the ACR, ACS, and NCCN guidelines, an annual breast MRI exam along with mammogram is recommended if the patient's lifetime risk is 20% or greater. This exam was interpreted at Station ID: [id number]. NOTE: For mammograms, a report in lay terms will be sent to the patient. Approximately 15% of breast malignancies will not be visualized mammographically. In the management of a palpable breast mass, a negative mammogram must not discourage biopsy of a clinically suspicious lesion. Electronically Signed By: Israel Davis M.D. lc/:01/17/2023 08:02:32 letter sent: Additional Imaging Needed ACR BI-RADS Category 0: Incomplete 3340F
== END ==
PROVIDERS: Family Provider Family Medicine; PCP Family Medicine; Referring Provider Family Medicine; Visit Provider Family Medicine
DX: Z12.31 Encounter for screening mammogram for malignant neoplasm of breast (principal)
CPT/HCPCS: 77063; 77067

== ENCOUNTER → 2023-02-11 13:27 | Outpatient (CLI) | payer OTHER, SELFPAY ==
--- NOTE | 2023-02-11 13:28 | DI.MG.S_ITS ---
BILATERAL DIGITAL DIAGNOSTIC MAMMOGRAM 3D/2D: 02/11/2023 CLINICAL: Additional evaluation requested from prior study bilateral. Comparison is made to exams dated: 01/15/2023 mammogram and 01/11/2022 mammogram - [facility]. There are scattered areas of fibroglandular density in both breasts (category b / 25%-50% glandular tissue). The asymmetry in the right breast posterior depth central to the nipple seen on the craniocaudal view only is no longer seen. The asymmetry in the left breast middle depth superior region seen on the mediolateral oblique view only is no longer seen. No other significant masses or calcifications are seen in either breast. IMPRESSION: NEGATIVE There is no mammographic evidence of malignancy. Return to annual mammogram screening schedule is recommended. Based on the Tyrer Cuzick model (a risk assessment model) the patient's lifetime risk is 6.8% and her 10 year risk is 1.1%. According to the ACR, ACS, and NCCN guidelines, an annual breast MRI exam along with mammogram is recommended if the patient's lifetime risk is 20% or greater. This exam was interpreted at Station ID: [id number]. NOTE: For mammograms, a report in lay terms will be sent to the patient. Approximately 15% of breast malignancies will not be visualized mammographically. In the management of a palpable breast mass, a negative mammogram must not discourage biopsy of a clinically suspicious lesion. Electronically Signed By: Joel nuñez/vicky:02/11/2023 14:06:13 letter sent: Normal Exam ACR BI-RADS Category 1: Negative 3341F
== END ==
PROVIDERS: Family Provider Family Medicine; PCP Family Medicine; Referring Provider Family Medicine; Visit Provider Family Medicine
DX: R92.8 Other abnormal and inconclusive findings on diagnostic imaging of breast (principal)
CPT/HCPCS: 77066; G0279

== ENCOUNTER → 2023-05-21 08:49 | Outpatient (CLI) | payer OTHER, SELFPAY ==
[2023-05-21 10:14] LABS: Hemoglobin A1C% w Est Avg Glu 5.3 % (4.0-6.0)
[2023-05-21 10:21] LABS: BUN Creatinine Ratio 14.1 (6-22); Blood Urea Nitrogen 9 mg/dL (7-17); Carbon Dioxide 24 mmol/L (22-32); Chloride 105 mmol/L (98-107); Cholesterol 181 mg/dL (140-199); Estimated Glomerular Filt Rate > 60 mL/min (>60); Glucose 104 mg/dL (70-100); HDL Cholesterol 60 mg/dL (40-60); HEMOLYSIS < 15 (0-50); LDL Cholesterol Calculated 99 mg/dL (<100); Potassium 4.1 mmol/L (3.4-5.1); Sodium 137 mmol/L (137-145); Triglycerides 111 mg/dL (35-150)
== END ==
PROVIDERS: Family Provider Family Medicine; PCP Family Medicine; Referring Provider Family Medicine; Visit Provider Family Medicine
DX: E11.9 Type 2 diabetes mellitus without complications (principal)
CPT/HCPCS: 36415; 80048; 80061; 83036

== ENCOUNTER → 2023-06-30 13:38 | Outpatient (CLI) | payer OTHER, SELFPAY | PROVIDERS: Family Provider Family Medicine; PCP Family Medicine; Referring Provider Family Medicine; Visit Provider Family Medicine | DX: Z23 Encounter for immunization (principal) | CPT/HCPCS: 90471; 90686 ==

== ENCOUNTER → 2023-07-25 14:05 | Outpatient (CLI) | payer OTHER, SELFPAY ==
--- NOTE | 2023-07-25 14:06 | DI.RAD.S_ITS ---
PROCEDURE: XR KNEE RT 3V INDICATIONS: right knee pain TECHNIQUE: 3 views of the knee were acquired. COMPARISON: [facility], CR, XR KNEE STANDING BILATERAL, 04/01/2021, 15:45. [facility], CR, XR KNEE LT 3V, 12/03/2020, 15:28. FINDINGS: Bones: No fractures or dislocations. No suspicious bony lesions. Mild tricompartmental right knee osteoarthritic changes. Soft tissues: No joint effusion. No suspicious soft tissue calcifications. IMPRESSION: Right knee without acute osseous abnormalities. Mild tricompartmental right knee osteoarthrosis. Dictated by: Isaac Matta M.D. on 07/25/2023 at 17:24 Approved by: Isaac Matta M.D. on 07/25/2023 at 17:25
== END ==
PROVIDERS: Family Provider Family Medicine; PCP Family Medicine; Referring Provider Family Medicine; Visit Provider Family Medicine
DX: M25.561 Pain in right knee (principal); M17.11 Unilateral primary osteoarthritis, right knee
CPT/HCPCS: 73562

== ENCOUNTER 2023-09-22 16:00 | Outpatient (RCR) | payer OTHER, SELFPAY ==
--- NOTE | 2023-09-07 17:20 | PT.OIE ---
Current Diagnoses Pain in right knee (09/07/23) Pain in unspecified knee (09/07/23) Past Medical History (Last Updated 08/04/23 @ 16:23 by NIMA Wilhelm) Anemia Anxiety Encounter for counseling regarding contraception IBS (irritable bowel syndrome) Incomplete emptying of bladder Inflammatory bowel disease Kidney stone Left ureteral calculus Microscopic hematuria Screen for STD (sexually transmitted disease) URI (upper respiratory infection) Vaginal itching Past Surgical History (Last Updated 02/15/22 @ 11:38 by Reyna Steele RN) History of medial meniscus repair of left knee (~06/2021) Status post appendectomy (1996) Status post delivery (1997) Status post delivery (2001) Status post cholecystectomy (1997) Visit Care Team Role Provider Type Sahil Vieyra MD Attending Provider Physician Family Provider Primary Care Provider Referring Provider Specialty: Family Practice Address: [address] [place] [address], [address], [facility] Email: [email or web address] Physical Therapy Initial Evaluation PT-OP-A Visit Information Start: 09/07/23 16:46 Freq: Status: Active Protocol: Document 09/07/23 16:00 DCW (Rec: 09/07/23 16:59 [facility] [id number]) Out-Patient Physical Therapy Visit Information Visit Information Visit Type Initial Evaluation Visit Start Time 16:00 Visit Stop Time 16:45 Total Visit Minutes 45 Visit Number 1 Number of FOOD AND BEVERAGE ASSOCIATE Visits 0 Evaluation Information Evaluation Date 09/07/23 PT-OP-B Current Condition Start: 09/07/23 16:46 Freq: Status: Active Protocol: Document 09/07/23 16:00 DCW (Rec: 09/07/23 16:59 [facility] [id number]) Current Condition History of Current Condition Onset Date ~2 month history Current Complaints Right knee pain History of Current Condition Pt is a 43 year old female presenting to skilled therapy noting a ~2 month history of right knee pain. Pt reports that she was out for a walk, her knees felt fine, and then felt a pop, stumbled, and began experiencing increased pain, stiffness, and edema in right knee. Notes it has improved over the past two months, but is still very limiting. Pt unable to stand for longer than five minutes, and struggles with walking, squatting, or on stairs. Pt also notes her pain will occasionally buckle without warning. Pt was previously treated at this clinic in 2020 for very similar symptoms in her left knee, for which she eventually underwent and MRI, which showed a complex meniscus tear. Pt a little worried that she will have to undergo that treatment again, and would like to avoid another surgery if possible. PT-OP-C Subjective Start: 09/07/23 16:46 Freq: Status: Active Protocol: Document 09/07/23 16:00 DCW (Rec: 09/07/23 16:59 DCW [id number]) Patient Questionnaires Lower Extremity Functional Scale LEFS Score 31/80 = 38.75% LEFS Impairment 60 to 79% Impaired (Score 17- 31) PT-OP-E Functional Tests Start: 09/07/23 16:46 Freq: Status: Active Protocol: Document 09/07/23 16:00 DCW (Rec: 09/07/23 16:59 DCW [id number]) Functional Tests 30 Second Sit to Stand Test Score 10 repetitions PT-OP-F Manual Assessment Start: 09/07/23 16:46 Freq: Status: Active Protocol: Document 09/07/23 16:00 DCW (Rec: 09/07/23 16:59 DCW [id number]) Manual Assessments Joint Mobility Assessment Joint Mobility Assessment Point-specific pain along anteriomedial joint line PT-OP-K Range of Motion Start: 09/07/23 16:46 Freq: Status: Active Protocol: Document 09/07/23 16:00 DCW (Rec: 09/07/23 16:59 DCW [id number]) Knee Goniometric Range of Motion Knee Right Knee ROM WFL Yes Patient Position Supine Flexion Active (degrees) 142 Extension Active (degrees) 0 Left Knee ROM WFL Yes Patient Position Supine Flexion Active (degrees) 140 Extension Active (degrees) 0 PT-OP-L Special Tests Start: 09/07/23 16:46 Freq: Status: Active Protocol: Document 09/07/23 16:00 DCW (Rec: 09/07/23 16:59 DCW [id number]) Special Tests Knee Special Tests Varus- 0 Degrees Test Results Moderately increased laxity bilaterally Valgus- 0 Degrees Test Results Negative Posterior Draw Test Results Negative Patellar Grind Test Test Results Negative Patella Tap Test Results Negative Holgre Test Test Results Positive Right Bounce Home Test Results Positive Right Apprehension Test Test Results Positive Right Apley's Compression Test Results Negative Anterior Draw Test Results Negative PT-OP-M Strength Start: 09/07/23 16:46 Freq: Status: Active Protocol: Document 09/07/23 16:00 DCW (Rec: 09/07/23 16:59 DCW [id number]) Knee Strength Knee Manual Muscle Testing Right Flexion (S2) 4+ Good+ Extension (L3) 4+ Good+ Comments Increased pain with resisted flexion Left Flexion (S2) 4+ Good+ Extension (L3) 4+ Good+ PT-OP-T Assessment and Plan Start: 09/07/23 16:46 Freq: Status: Active Protocol: Document 09/07/23 16:00 DCW (Rec: 09/07/23 17:19 DCW [id number]) Physical Therapy Assessment Rehab Potential Rehabilitation Potential Good Evaluation Complexity Number of Personal Factors/Comorbidities 1-2 Number of Body Systems Impaired 1-2 Clinical Presentation at Evaluation Stable Impairments Impairments Functional Activities, Functional Mobility,Gait,Pain Goals Two Impairment Pt unable to stand longer than five minutes without right knee pain Group Home Goal (LTG) Pt to report ability to stand at least 15 minutes without increased right knee pain LTG Duration 11/08/23 One Impairment Pt does not have an appropriate home exercise program Short Term Goal (STG) Pt to be independent and compliant with an approrpiate HEP STG Duration 10/08/23 Assessment Summary Assessment Pt presents with signs and symptoms consistent with right knee injury. Potential involvement of right meniscus, based on symptoms of knee buckling, point-specific pain along joint line, and positive Holger and bounce-home tests. Pt is already feeling better, seeing improvement since initial injury, which may indicate more of a sprain or mild tear. Pt does have a history of complex left meniscus tear, which required two surgeries in the past. Should benefit from skilled therapy focusing on improving joint stability, pain-control, activity/gait tolerance, and improving stair/squatting quality. If pt does not improve as expected, may benefit from further advanced imaging and potential referral to Ortho. Physical Therapy Plan Frequency and Duration Frequency of Treatment 2x/Week Plan of Care Start Date 09/07/23 Plan of Care End Date 11/08/23 Therapeutic Interventions Therapeutic Interventions Gait Training,Home Exercise Program,Joint Mobilizations, Manual Therapy,Neuromuscular Re-education,Patient/Caregiver Education,Self-Care/Home Management,Soft Tissue Mobilization,Therapeutic Activities,Therapeutic Exercises Modalities Cold Pack/Ice Massage,Electric Stimulation,Hot Packs, Ultrasound Next Visit Focus/Plan Next Note Type Treatment Note Next Visit Plan Joint stabilization, pain- control, body mechanics, and gait training
--- NOTE | 2023-09-07 17:20 | PT.OPPOC ---
Physical, Occupational & Speech Therapy At [facility] Current Diagnoses Pain in right knee (09/07/23) Pain in unspecified knee (09/07/23) Visit Care Team Role Provider Type Sahil Vieyra MD Attending Provider Physician Family Provider Primary Care Provider Referring Provider Specialty: Family Practice Address: [address] [place] [address], [address], [facility] Email: [email or web address] Plan Of Care PT-OP-T Assessment and Plan Start: 09/07/23 16:46 Freq: Status: Active Protocol: Document 09/07/23 16:00 DCW (Rec: 09/07/23 17:19 DCW [id number]) Physical Therapy Assessment Rehab Potential Rehabilitation Potential Good Evaluation Complexity Number of Personal Factors/Comorbidities 1-2 Number of Body Systems Impaired 1-2 Clinical Presentation at Evaluation Stable Impairments Impairments Functional Activities, Functional Mobility,Gait,Pain Goals Two Impairment Pt unable to stand longer than five minutes without right knee pain Cocoa Bean Roaster Goal (LTG) Pt to report ability to stand at least 15 minutes without increased right knee pain LTG Duration 11/08/23 One Impairment Pt does not have an appropriate home exercise program Short Term Goal (STG) Pt to be independent and compliant with an appropriate HEP STG Duration 10/08/23 Assessment Summary Assessment Pt presents with signs and symptoms consistent with right knee injury. Potential involvement of right meniscus, based on symptoms of knee buckling, point-specific pain along joint line, and positive Holger and bounce-home tests. Pt is already feeling better, seeing improvement since initial injury, which may indicate more of a sprain or mild tear. Pt does have a history of complex left meniscus tear, which required two surgeries in the past. Should benefit from skilled therapy focusing on improving joint stability, pain-control, activity/gait tolerance, and improving stair/squatting quality. If pt does not improve as expected, may benefit from further advanced imaging and potential referral to Ortho. Physical Therapy Plan Frequency and Duration Frequency of Treatment 2x/Week Plan of Care Start Date 09/07/23 Plan of Care End Date 11/08/23 Therapeutic Interventions Therapeutic Interventions Gait Training,Home Exercise Program,Joint Mobilizations, Manual Therapy,Neuromuscular Re-education,Patient/Caregiver Education,Self-Care/Home Management,Soft Tissue Mobilization,Therapeutic Activities,Therapeutic Exercises Modalities Cold Pack/Ice Massage,Electric Stimulation,Hot Packs, Ultrasound Next Visit Focus/Plan Next Note Type Treatment Note Next Visit Plan Joint stabilization, pain- control, body mechanics, and gait training Plan of Care Dates Plan of Care Start Date 09/07/23 Plan of Care End Date 11/08/23 Electronically Signed by: Osman Byrd, PT 09/07/23 [id number] If you are in agreement with this Plan of Care, please return a signed and dated copy. I have reviewed this Plan of Care and certify that the skilled therapy services above are required to meet the patient?s needs. Physician Signature Date Printed Name and Credentials Clinical Instructor Signature Printed Name and Credentials
--- NOTE | 2023-09-13 16:46 | PT.OTN ---
Current Diagnoses Pain in right knee (09/13/23) Pain in unspecified knee (09/13/23) Physical Therapy Treatment Note PT-OP-A Visit Information Start: 09/07/23 16:46 Freq: Status: Active Protocol: Document 09/13/23 16:05 DCW (Rec: 09/13/23 16:46 DCW [id number]) Out-Patient Physical Therapy Visit Information Visit Information Visit Type Treatment Note Visit Start Time 16:05 Visit Stop Time 16:45 Total Visit Minutes 40 Visit Number 2 Number of SYSTEMS ARCHITECT Visits 0 Evaluation Information Evaluation Date 09/07/23 PT-OP-B Current Condition Start: 09/07/23 16:46 Freq: Status: Active Protocol: Document 09/07/23 16:00 DCW (Rec: 09/07/23 16:59 DCW [id number]) Current Condition History of Current Condition Onset Date ~2 month history Current Complaints Right knee pain History of Current Condition Pt is a 43 year old female presenting to skilled therapy noting a ~2 month history of right knee pain. Pt reports that she was out for a walk, her knees felt fine, and then felt a pop, stumbled, and began experiencing increased pain, stiffness, and edema in right knee. Notes it has improved over the past two months, but is still very limiting. Pt unable to stand for longer than five minutes, and struggles with walking, squatting, or on stairs. Pt also notes her pain will occasionally buckle without warning. Pt was previously treated at this clinic in 2020 for very similar symptoms in her left knee, for which she eventually underwent and MRI, which showed a complex meniscus tear. Pt a little worried that she will have to undergo that treatment again, and would like to avoid another surgery if possible. PT-OP-C Subjective Start: 09/07/23 16:46 Freq: Status: Active Protocol: Document 09/13/23 16:05 DCW (Rec: 09/13/23 16:46 DCW [id number]) OP-PT Subjective Patient Comments Patient Comments Feeling good today. PT-OP-E Functional Tests Start: 09/07/23 16:46 Freq: Status: Active Protocol: Document 09/07/23 16:00 DCW (Rec: 09/07/23 16:59 DCW [id number]) Functional Tests 30 Second Sit to Stand Test Score 10 repetitions PT-OP-F Manual Assessment Start: 09/07/23 16:46 Freq: Status: Active Protocol: Document 09/07/23 16:00 DCW (Rec: 09/07/23 16:59 DCW [id number]) Manual Assessments Joint Mobility Assessment Joint Mobility Assessment Point-specific pain along anteriomedial joint line PT-OP-K Range of Motion Start: 09/07/23 16:46 Freq: Status: Active Protocol: Document 09/07/23 16:00 DCW (Rec: 09/07/23 16:59 DCW [id number]) Knee Goniometric Range of Motion Knee Right Knee ROM WFL Yes Patient Position Supine Flexion Active (degrees) 142 Extension Active (degrees) 0 Left Knee ROM WFL Yes Patient Position Supine Flexion Active (degrees) 140 Extension Active (degrees) 0 PT-OP-L Special Tests Start: 09/07/23 16:46 Freq: Status: Active Protocol: Document 09/07/23 16:00 DCW (Rec: 09/07/23 16:59 DCW [id number]) Special Tests Knee Special Tests Varus- 0 Degrees Test Results Moderately increased laxity bilaterally Valgus- 0 Degrees Test Results Negative Posterior Draw Test Results Negative Patellar Grind Test Test Results Negative Patella Tap Test Results Negative Holger Test Test Results Positive Right Bounce Home Test Results Positive Right Apprehension Test Test Results Positive Right Apley's Compression Test Results Negative Anterior Draw Test Results Negative PT-OP-M Strength Start: 09/07/23 16:46 Freq: Status: Active Protocol: Document 09/07/23 16:00 DCW (Rec: 09/07/23 16:59 DCW [id number]) Knee Strength Knee Manual Muscle Testing Right Flexion (S2) 4+ Good+ Extension (L3) 4+ Good+ Comments Increased pain with resisted flexion Left Flexion (S2) 4+ Good+ Extension (L3) 4+ Good+ PT-OP-Q Treatments Start: 09/07/23 16:46 Freq: Status: Active Protocol: Document 09/13/23 16:05 DCW (Rec: 09/13/23 16:46 DCW [id number]) Gym Equipment Shuttle Recovery Unilateral Squats Resistance 37# Shuttle Recovery Platform Stable Bilateral Squats Resistance 75# Shuttle Recovery Platform Stable Therapeutic Exercises Supine Exercises Bridging Supine Exercise Name Bridging /c Adductor squeeze SLR Supine Exercise Name SLR /c ER Side right Standing Exercises TKE Standing Exercise Name TKE Side bilateral Step-down Standing Exercise Name Step-downs Side bilateral Equipment Used 6 step Step-up Standing Exercise Name Step-ups Side bilateral Equipment Used 6 step Lunge Standing Exercise Name Step lunge Side right Equipment Used 6 step Other Exercises Resisted Ambulation Other Exercise Name Resisted side-stepping Resistance Green loop Manual Therapy Treatment Joint Mobilizations Knee Joint R knee Direction P<->A Grade III Body Position Hooklying PF Joint R Patellofemoral Direction Inf/Sup Grade III Body Position Supine PT-OP-T Assessment and Plan Start: 09/07/23 16:46 Freq: Status: Active Protocol: Document 09/13/23 16:05 DCW (Rec: 09/13/23 16:46 DCW [id number]) Physical Therapy Assessment Impairments Impairments Functional Activities, Functional Mobility,Gait,Pain Goals Two Impairment Pt unable to stand longer than five minutes without right knee pain Animal Care Assistant Goal (LTG) Pt to report ability to stand at least 15 minutes without increased right knee pain LTG Duration 11/08/23 One Impairment Pt does not have an appropriate home exercise program Short Term Goal (STG) Pt to be independent and compliant with an appropriate HEP STG Duration 10/08/23 Assessment Summary Assessment Great response to treatment today, pt noted improvement in knee pain following TherEx. No instances of knee buckling today. Physical Therapy Plan Frequency and Duration Frequency of Treatment 2x/Week Plan of Care Start Date 09/07/23 Plan of Care End Date 11/08/23 Therapeutic Interventions Therapeutic Interventions Gait Training,Home Exercise Program,Joint Mobilizations, Manual Therapy,Neuromuscular Re-education,Patient/Caregiver Education,Self-Care/Home Management,Soft Tissue Mobilization,Therapeutic Activities,Therapeutic Exercises Modalities Cold Pack/Ice Massage,Electric Stimulation,Hot Packs, Ultrasound Next Visit Focus/Plan Next Note Type Treatment Note Next Visit Plan Joint stabilization, pain- control, body mechanics, and gait training
--- NOTE | 2023-09-16 16:47 | PT.OTN ---
Current Diagnoses Pain in right knee (09/16/23) Pain in unspecified knee (09/16/23) Physical Therapy Treatment Note PT-OP-A Visit Information Start: 09/07/23 16:46 Freq: Status: Active Protocol: Document 09/16/23 16:00 DCW (Rec: 09/16/23 16:47 DCW [id number]) Out-Patient Physical Therapy Visit Information Visit Information Visit Type Treatment Note Visit Start Time 16:00 Visit Stop Time 16:45 Total Visit Minutes 45 Visit Number 3 Number of FORESTRY CONSULTANT Visits 0 Evaluation Information Evaluation Date 09/07/23 PT-OP-B Current Condition Start: 09/07/23 16:46 Freq: Status: Active Protocol: Document 09/07/23 16:00 DCW (Rec: 09/07/23 16:59 DCW [id number]) Current Condition History of Current Condition Onset Date ~2 month history Current Complaints Right knee pain History of Current Condition Pt is a 43 year old female presenting to skilled therapy noting a ~2 month history of right knee pain. Pt reports that she was out for a walk, her knees felt fine, and then felt a pop, stumbled, and began experiencing increased pain, stiffness, and edema in right knee. Notes it has improved over the past two months, but is still very limiting. Pt unable to stand for longer than five minutes, and struggles with walking, squatting, or on stairs. Pt also notes her pain will occasionally buckle without warning. Pt was previously treated at this clinic in 2020 for very similar symptoms in her left knee, for which she eventually underwent and MRI, which showed a complex meniscus tear. Pt a little worried that she will have to undergo that treatment again, and would like to avoid another surgery if possible. PT-OP-C Subjective Start: 09/07/23 16:46 Freq: Status: Active Protocol: Document 09/16/23 16:00 DCW (Rec: 09/16/23 16:47 DCW [id number]) OP-PT Subjective Patient Comments Patient Comments It hates me today, but I was rough on it yesterday. PT-OP-E Functional Tests Start: 09/07/23 16:46 Freq: Status: Active Protocol: Document 09/07/23 16:00 DCW (Rec: 09/07/23 16:59 DCW [id number]) Functional Tests 30 Second Sit to Stand Test Score 10 repetitions PT-OP-F Manual Assessment Start: 09/07/23 16:46 Freq: Status: Active Protocol: Document 09/07/23 16:00 DCW (Rec: 09/07/23 16:59 DCW [id number]) Manual Assessments Joint Mobility Assessment Joint Mobility Assessment Point-specific pain along anteriomedial joint line PT-OP-K Range of Motion Start: 09/07/23 16:46 Freq: Status: Active Protocol: Document 09/07/23 16:00 DCW (Rec: 09/07/23 16:59 DCW [id number]) Knee Goniometric Range of Motion Knee Right Knee ROM WFL Yes Patient Position Supine Flexion Active (degrees) 142 Extension Active (degrees) 0 Left Knee ROM WFL Yes Patient Position Supine Flexion Active (degrees) 140 Extension Active (degrees) 0 PT-OP-L Special Tests Start: 09/07/23 16:46 Freq: Status: Active Protocol: Document 09/07/23 16:00 DCW (Rec: 09/07/23 16:59 DCW [id number]) Special Tests Knee Special Tests Varus- 0 Degrees Test Results Moderately increased laxity bilaterally Valgus- 0 Degrees Test Results Negative Posterior Draw Test Results Negative Patellar Grind Test Test Results Negative Patella Tap Test Results Negative Holger Test Test Results Positive Right Bounce Home Test Results Positive Right Apprehension Test Test Results Positive Right Apley's Compression Test Results Negative Anterior Draw Test Results Negative PT-OP-M Strength Start: 09/07/23 16:46 Freq: Status: Active Protocol: Document 09/07/23 16:00 DCW (Rec: 09/07/23 16:59 DCW [id number]) Knee Strength Knee Manual Muscle Testing Right Flexion (S2) 4+ Good+ Extension (L3) 4+ Good+ Comments Increased pain with resisted flexion Left Flexion (S2) 4+ Good+ Extension (L3) 4+ Good+ PT-OP-Q Treatments Start: 09/07/23 16:46 Freq: Status: Active Protocol: Document 09/16/23 16:00 DCW (Rec: 09/16/23 16:47 DCW [id number]) Cardio Equipment Recumbent Bicycle Duration (Minutes) 5 Resistance 4 Seat Position 2 Gym Equipment Shuttle Recovery Unilateral Squats Resistance 37# (One new) Shuttle Recovery Platform Stable Bilateral Squats Resistance 75# (Three new) Shuttle Recovery Platform Stable Shuttle Balance Red Details WBOS, Staggered, Lateral Therapeutic Exercises Standing Exercises Hip Extension Standing Exercise Name Hip Extension Side bilateral Resistance Green Step-down Standing Exercise Name Step-downs Side bilateral Equipment Used 6 step Step-up Standing Exercise Name Step-ups Side bilateral Equipment Used 6 step Other Exercises Resisted Ambulation Other Exercise Name Resisted side-stepping Resistance Green loop Manual Therapy Treatment Joint Mobilizations Knee Joint R knee Direction P<->A Grade III Body Position Hooklying PF Joint R Patellofemoral Direction Inf/Sup Grade III Body Position Supine PT-OP-T Assessment and Plan Start: 09/07/23 16:46 Freq: Status: Active Protocol: Document 09/16/23 16:00 DCW (Rec: 09/16/23 16:47 DCW [id number]) Physical Therapy Assessment Impairments Impairments Functional Activities, Functional Mobility,Gait,Pain Goals Two Impairment Pt unable to stand longer than five minutes without right knee pain Development Director Goal (LTG) Pt to report ability to stand at least 15 minutes without increased right knee pain LTG Duration 11/08/23 One Impairment Pt does not have an appropriate home exercise program Short Term Goal (STG) Pt to be independent and compliant with an appropriate HEP STG Duration 10/08/23 Assessment Summary Assessment Pt noted significant improvement following treatment, improved gait and decreased pain. Pt tolerated all treatment well today. Physical Therapy Plan Frequency and Duration Frequency of Treatment 2x/Week Plan of Care Start Date 09/07/23 Plan of Care End Date 11/08/23 Therapeutic Interventions Therapeutic Interventions Gait Training,Home Exercise Program,Joint Mobilizations, Manual Therapy,Neuromuscular Re-education,Patient/Caregiver Education,Self-Care/Home Management,Soft Tissue Mobilization,Therapeutic Activities,Therapeutic Exercises Modalities Cold Pack/Ice Massage,Electric Stimulation,Hot Packs, Ultrasound Next Visit Focus/Plan Next Note Type Treatment Note Next Visit Plan Joint stabilization, pain- control, body mechanics, and gait training
--- NOTE | 2023-09-22 16:46 | PT.OTN ---
Current Diagnoses Pain in right knee (09/22/23) Pain in unspecified knee (09/22/23) Physical Therapy Treatment Note PT-OP-A Visit Information Start: 09/07/23 16:46 Freq: Status: Active Protocol: Document 09/22/23 16:00 DCW (Rec: 09/22/23 16:46 DCW [id number]) Out-Patient Physical Therapy Visit Information Visit Information Visit Type Treatment Note Visit Start Time 16:00 Visit Stop Time 16:45 Total Visit Minutes 45 Visit Number 4 Number of DATABASES COMPUTER CONSULTANT Visits 0 Evaluation Information Evaluation Date 09/07/23 PT-OP-B Current Condition Start: 09/07/23 16:46 Freq: Status: Active Protocol: Document 09/07/23 16:00 DCW (Rec: 09/07/23 16:59 DCW [id number]) Current Condition History of Current Condition Onset Date ~2 month history Current Complaints Right knee pain History of Current Condition Pt is a 43 year old female presenting to skilled therapy noting a ~2 month history of right knee pain. Pt reports that she was out for a walk, her knees felt fine, and then felt a pop, stumbled, and began experiencing increased pain, stiffness, and edema in right knee. Notes it has improved over the past two months, but is still very limiting. Pt unable to stand for longer than five minutes, and struggles with walking, squatting, or on stairs. Pt also notes her pain will occasionally buckle without warning. Pt was previously treated at this clinic in 2020 for very similar symptoms in her left knee, for which she eventually underwent and MRI, which showed a complex meniscus tear. Pt a little worried that she will have to undergo that treatment again, and would like to avoid another surgery if possible. PT-OP-C Subjective Start: 09/07/23 16:46 Freq: Status: Active Protocol: Document 09/22/23 16:00 DCW (Rec: 09/22/23 16:46 DCW [id number]) OP-PT Subjective Patient Comments Patient Comments Pt limpy today. Notes she was walking in the grocery store, her knee gave out, and she's been having increased pain ever since. PT-OP-E Functional Tests Start: 09/07/23 16:46 Freq: Status: Active Protocol: Document 09/07/23 16:00 DCW (Rec: 09/07/23 16:59 DCW [id number]) Functional Tests 30 Second Sit to Stand Test Score 10 repetitions PT-OP-F Manual Assessment Start: 09/07/23 16:46 Freq: Status: Active Protocol: Document 09/07/23 16:00 DCW (Rec: 09/07/23 16:59 DCW [id number]) Manual Assessments Joint Mobility Assessment Joint Mobility Assessment Point-specific pain along anteriomedial joint line PT-OP-K Range of Motion Start: 09/07/23 16:46 Freq: Status: Active Protocol: Document 09/07/23 16:00 DCW (Rec: 09/07/23 16:59 DCW [id number]) Knee Goniometric Range of Motion Knee Right Knee ROM WFL Yes Patient Position Supine Flexion Active (degrees) 142 Extension Active (degrees) 0 Left Knee ROM WFL Yes Patient Position Supine Flexion Active (degrees) 140 Extension Active (degrees) 0 PT-OP-L Special Tests Start: 09/07/23 16:46 Freq: Status: Active Protocol: Document 09/07/23 16:00 DCW (Rec: 09/07/23 16:59 DCW [id number]) Special Tests Knee Special Tests Varus- 0 Degrees Test Results Moderately increased laxity bilaterally Valgus- 0 Degrees Test Results Negative Posterior Draw Test Results Negative Patellar Grind Test Test Results Negative Patella Tap Test Results Negative Holger Test Test Results Positive Right Bounce Home Test Results Positive Right Apprehension Test Test Results Positive Right Apley's Compression Test Results Negative Anterior Draw Test Results Negative PT-OP-M Strength Start: 09/07/23 16:46 Freq: Status: Active Protocol: Document 09/07/23 16:00 DCW (Rec: 09/07/23 16:59 DCW [id number]) Knee Strength Knee Manual Muscle Testing Right Flexion (S2) 4+ Good+ Extension (L3) 4+ Good+ Comments Increased pain with resisted flexion Left Flexion (S2) 4+ Good+ Extension (L3) 4+ Good+ PT-OP-Q Treatments Start: 09/07/23 16:46 Freq: Status: Active Protocol: Document 09/22/23 16:00 DCW (Rec: 09/22/23 16:46 DCW [id number]) Cardio Equipment Bicycle (Upright) Duration (Minutes) 6 Resistance 5 Seat Position 3 Gym Equipment Shuttle Recovery Unilateral Squats Resistance 37# (One new) Shuttle Recovery Platform Stable Bilateral Squats Resistance 75# (Three new) Shuttle Recovery Platform Stable Shuttle Balance Red Details WBOS, Staggered, Lateral Therapeutic Exercises Other Exercises Resisted Ambulation Other Exercise Name Resisted side-stepping Resistance Green loop Manual Therapy Treatment Joint Mobilizations Knee Joint R knee Direction P<->A Grade III Body Position Hooklying PF Joint R Patellofemoral Direction Inf/Sup Grade III Body Position Supine PT-OP-T Assessment and Plan Start: 09/07/23 16:46 Freq: Status: Active Protocol: Document 09/22/23 16:00 DCW (Rec: 09/22/23 16:46 DCW [id number]) Physical Therapy Assessment Impairments Impairments Functional Activities, Functional Mobility,Gait,Pain Goals Two Impairment Pt unable to stand longer than five minutes without right knee pain Nursing Home Goal (LTG) Pt to report ability to stand at least 15 minutes without increased right knee pain LTG Duration 11/08/23 One Impairment Pt does not have an appropriate home exercise program Short Term Goal (STG) Pt to be independent and compliant with an appropriate HEP STG Duration 10/08/23 Assessment Summary Assessment Increased pain and stiffness today, pt noted increased tightness in right quad. Tolerated treatment well, was able to tolerate most activities without pain, but most activities generating force through right knee where more tender than usual. Pt hopeful recent MRI referral gets authorized. Physical Therapy Plan Frequency and Duration Frequency of Treatment 2x/Week Plan of Care Start Date 09/07/23 Plan of Care End Date 11/08/23 Therapeutic Interventions Therapeutic Interventions Gait Training,Home Exercise Program,Joint Mobilizations, Manual Therapy,Neuromuscular Re-education,Patient/Caregiver Education,Self-Care/Home Management,Soft Tissue Mobilization,Therapeutic Activities,Therapeutic Exercises Modalities Cold Pack/Ice Massage,Electric Stimulation,Hot Packs, Ultrasound Next Visit Focus/Plan Next Note Type Treatment Note Next Visit Plan Joint stabilization, pain- control, body mechanics, and gait training
--- NOTE | 2024-07-12 12:56 | PT.OPDS ---
Current Diagnoses Pain in right knee (09/22/23) Pain in unspecified knee (09/22/23) Visit Care Team Role Provider Type Sahil Vieyra MD Attending Provider Physician Family Provider Primary Care Provider Referring Provider Specialty: [facility] Practice Address: [address] [place] [address], [address], [facility] Email: [email or web address] Visit Number Visit Number 4 Discharge Summary PT-OP-B Current Condition Start: 09/07/23 16:46 Freq: Status: Active Protocol: Document 09/07/23 16:00 DCW (Rec: 09/07/23 16:59 DCW [id number]) Current Condition History of Current Condition Onset Date ~2 month history Current Complaints Right knee pain History of Current Condition Pt is a 43 year old female presenting to skilled therapy noting a ~2 month history of right knee pain. Pt reports that she was out for a walk, her knees felt fine, and then felt a pop, stumbled, and began experiencing increased pain, stiffness, and edema in right knee. Notes it has improved over the past two months, but is still very limiting. Pt unable to stand for longer than five minutes, and struggles with walking, squatting, or on stairs. Pt also notes her pain will occasionally buckle without warning. Pt was previously treated at this clinic in 2020 for very similar symptoms in her left knee, for which she eventually underwent and MRI, which showed a complex meniscus tear. Pt a little worried that she will have to undergo that treatment again, and would like to avoid another surgery if possible. PT-OP-C Subjective Start: 09/07/23 16:46 Freq: Status: Active Protocol: Document 09/22/23 16:00 DCW (Rec: 09/22/23 16:46 DCW [id number]) OP-PT Subjective Patient Comments Patient Comments Pt limpy today. Notes she was walking in the grocery store, her knee gave out, and she's been having increased pain ever since. PT-OP-E Functional Tests Start: 09/07/23 16:46 Freq: Status: Active Protocol: Document 09/07/23 16:00 DCW (Rec: 09/07/23 16:59 DCW [id number]) Functional Tests 30 Second Sit to Stand Test Score 10 repetitions PT-OP-F Manual Assessment Start: 09/07/23 16:46 Freq: Status: Active Protocol: Document 09/07/23 16:00 DCW (Rec: 09/07/23 16:59 DCW [id number]) Manual Assessments Joint Mobility Assessment Joint Mobility Assessment Point-specific pain along anteriomedial joint line PT-OP-K Range of Motion Start: 09/07/23 16:46 Freq: Status: Active Protocol: Document 09/07/23 16:00 DCW (Rec: 09/07/23 16:59 DCW [id number]) Knee Goniometric Range of Motion Knee Right Knee ROM WFL Yes Patient Position Supine Flexion Active (degrees) 142 Extension Active (degrees) 0 Left Knee ROM WFL Yes Patient Position Supine Flexion Active (degrees) 140 Extension Active (degrees) 0 PT-OP-L Special Tests Start: 09/07/23 16:46 Freq: Status: Active Protocol: Document 09/07/23 16:00 DCW (Rec: 09/07/23 16:59 DCW [id number]) Special Tests Knee Special Tests Varus- 0 Degrees Test Results Moderately increased laxity bilaterally Valgus- 0 Degrees Test Results Negative Posterior Draw Test Results Negative Patellar Grind Test Test Results Negative Patella Tap Test Results Negative Holger Test Test Results Positive Right Bounce Home Test Results Positive Right Apprehension Test Test Results Positive Right Apley's Compression Test Results Negative Anterior Draw Test Results Negative PT-OP-M Strength Start: 09/07/23 16:46 Freq: Status: Active Protocol: Document 09/07/23 16:00 DCW (Rec: 09/07/23 16:59 DCW [id number]) Knee Strength Knee Manual Muscle Testing Right Flexion (S2) 4+ Good+ Extension (L3) 4+ Good+ Comments Increased pain with resisted flexion Left Flexion (S2) 4+ Good+ Extension (L3) 4+ Good+ PT-OP-T Assessment and Plan Start: 09/07/23 16:46 Freq: Status: Active Protocol: Document 07/12/24 12:52 DCW (Rec: 07/12/24 12:55 DCW [id number]) Physical Therapy Assessment Assessment Summary Assessment Pt canceled last two scheduled visits, did not schedule any follow-ups. Pt has now not been seen in more than 9 months. POC has . Pt will be discharged from skilled therapy att this time, will require a new referral in order to return in the future. Physical Therapy Plan Discharge Physical Therapy Discharge Reasons No Longer Attending PT
== END 2024-07-17 09:25 | disposition home or self-care (01) ==
LOC: PHYS 16:00
PROVIDERS: Family Provider Family Medicine; PCP Family Medicine; Referring Provider Family Medicine; Visit Provider Family Medicine
DX: M25.561 Pain in right knee (principal)
CPT/HCPCS: 97110; 97140; 97161

== ENCOUNTER → 2023-11-11 08:23 | Outpatient (CLI) | payer OTHER, SELFPAY ==
[2023-11-11 09:18] LABS: Alanine Aminotransferase 28 IU/L (<35); Albumin 3.7 g/dL (3.5-5.0); Albumin Globulin Ratio 1.2 (1.0-2.8); Alkaline Phosphatase 42 U/L (38-126); Aspartate Aminotransferase 28 IU/L (14-36); Bilirubin Total 0.3 mg/dL (0.2-1.3); Bilirubin Unconjugated 0.1 mg/dL (0.0-1.1); HEMOLYSIS < 15 (0-50); Total Protein 6.7 g/dL (6.3-8.2)
== END ==
PROVIDERS: Family Provider Family Medicine; PCP Family Medicine; Referring Provider Family Medicine; Visit Provider Family Medicine
DX: B35.1 Tinea unguium (principal)
CPT/HCPCS: 36415; 80076

== ENCOUNTER → 2024-02-01 15:51 | Outpatient (CLI) | payer OTHER, SELFPAY ==
[2024-02-01 16:41] LABS: Hemoglobin A1C% w Est Avg Glu 5.9 % (4.0-6.0)
[2024-02-01 17:22] LABS: BUN Creatinine Ratio 14.3 (6-22); Blood Urea Nitrogen 12 mg/dL (7-17); Calcium 9.9 mg/dL (8.4-10.2); Carbon Dioxide 26 mmol/L (22-32); Chloride 105 mmol/L (98-107); Estimated Glomerular Filt Rate > 60 mL/min (>60); Glucose 101 mg/dL (70-100); HEMOLYSIS < 15 (0-50); Potassium 4.2 mmol/L (3.4-5.1); Sodium 137 mmol/L (137-145)
== END ==
PROVIDERS: Family Provider Family Medicine; PCP Family Medicine; Referring Provider Family Medicine; Visit Provider Family Medicine
DX: E11.65 Type 2 diabetes mellitus with hyperglycemia (principal); I10 Essential (primary) hypertension
CPT/HCPCS: 36415; 80048; 83036

== ENCOUNTER → 2024-02-25 08:49 | Outpatient (CLI) | payer OTHER, SELFPAY ==
--- NOTE | 2024-02-25 | DI.MG.S_ITS ---
BILATERAL DIGITAL SCREENING MAMMOGRAM 3D/2D WITH CAD: 02/25/2024 CLINICAL: Routine screening. Comparison is made to exams dated: 02/11/2023 mammogram, 01/15/2023 mammogram, and 01/11/2022 mammogram - [facility]. There are scattered areas of fibroglandular density in both breasts (category b / 25%-50% glandular tissue). Current study was also evaluated with a Computer Aided Detection (CAD) system. No significant masses, calcifications, or other findings are seen in either breast. There has been no significant interval change. IMPRESSION: NEGATIVE There is no mammographic evidence of malignancy. A 1 year screening mammogram is recommended. Based on the Tyrer Cuzick model (a risk assessment model) the patient's lifetime risk is 6.8% and her 10 year risk is 1.1%. According to the ACR, ACS, and NCCN guidelines, an annual breast MRI exam along with mammogram is recommended if the patient's lifetime risk is 20% or greater. This exam was interpreted at Station ID: [id number]. NOTE: For mammograms, a report in lay terms will be sent to the patient. Approximately 15% of breast malignancies will not be visualized mammographically. In the management of a palpable breast mass, a negative mammogram must not discourage biopsy of a clinically suspicious lesion. Electronically Signed By: Dora lott/vicky:02/27/2024 17:24:12 letter sent: Normal Exam ACR BI-RADS Category 1: Negative [id number]
== END ==
PROVIDERS: Family Provider Family Medicine; PCP Family Medicine; Referring Provider Family Medicine; Visit Provider Family Medicine
DX: Z12.31 Encounter for screening mammogram for malignant neoplasm of breast (principal); R92.323 Mammographic fibroglandular density, bilateral breasts
CPT/HCPCS: 77063; 77067

== ENCOUNTER → 2024-07-13 | Outpatient (CLI) | payer OTHER, SELFPAY | PROVIDERS: Family Provider Family Medicine; PCP Family Medicine; Referring Provider Internal Medicine; Visit Provider Internal Medicine | DX: Z23 Encounter for immunization (principal) | CPT/HCPCS: 90471; 90656 ==

== ENCOUNTER 2024-07-17 06:28 | Day surgery (SDC) | payer OTHER, SELFPAY ==
--- NOTE | 2024-07-17 | PATH_ITS ---
[facility] Accession Number: [id number] No. of containers..02 Tissue . 01 Material submitted: . PART A: rectum - RECTAL POLYP PART B: colon - CECAL POLYP . 01 Diagnosis: Part A: RECTAL POLYP: Tubular adenoma. . Part B: CECAL POLYP: Tubular adenoma. [facility] 07/19/20241710 Local . 01 Electronically signed: . Hugh Alberto MD, Pathologist NPI- [id number] . 01 Gross description: . A. Received in formalin with two patient identifiers and rectal polyp, is a single pizarro soft tissue fragment, 0.7 x 0.3 x 0.3 cm, inked blue, bisected, and submitted entirely in A1. . B. Received in formalin with two patient identifiers and cecal polyp, is a single pizarro soft tissue fragment, 1.2 cm in greatest dimension, submitted in B1. ([id number]) /MRV 07/19/20241710 Local . 01 Pathologist provided ICD-10: D12.0, D12.8 . 01 CPT . 549561, 512643 Specimen Comment: A courtesy copy of this report has been sent to [phone] Performed at: [address] [address], [place], [place] [id number] MD Hugh Alberto MD Phone: [phone]
[2024-07-17 07:14] VITALS: BP 111/68; PULSE 93; RESP 17; TEMP 36.1; O2SAT 95
--- NOTE | 2024-07-17 07:46 | PM.HP.1 ---
History of Present Illness History of Present Illness Date Patient Seen: 07/17/24 Time Patient Seen: 07:46 Chief complaint: [facility] Narrative: Monica is a 44-year-old woman who is here for a colonoscopy. She did have a colonoscopy many years ago for diarrhea but nothing definitive was found and she was told she had ?IBS?. She does not know much about her family history. [facility] Medical History (Updated 07/17/24 @ 07:47 by Evaristo Wyman MD) Encounter for counseling regarding contraception Screen for STD (sexually transmitted disease) Incomplete emptying of bladder Microscopic hematuria Left ureteral calculus Kidney stone Inflammatory bowel disease Anemia Vaginal itching URI (upper respiratory infection) Anxiety IBS (irritable bowel syndrome) Surgical History (Updated 02/15/22 @ 11:38 by Reyna Steele RN) History of medial meniscus repair of left knee (~06/2021) Status post delivery (2001) Status post cholecystectomy (1997) Status post appendectomy (1996) Status post delivery (1997) Family History Father CAD (coronary artery disease) CVA (cerebral vascular accident) Mother Lung cancer Grandfather Lung cancer Sister Diabetes mellitus Social History marital status: number of children: 2 household members: spouse and children Previous occupational history: [employer] Smoking Status: Never smoker alcohol intake: current substance use type: does not use caffeine: Yes Meds Home Medications and Allergies Home Medications Medication Instructions Recorded Confirmed Type blood-glucose meter (Blood Glucose #1 ea 03/13/18 03/26/24 Rx Monitoring kit) blood sugar diagnostic (Blood #50 ea 05/01/18 03/26/24 Rx Glucose Test strips) lancets 33 gauge #100 ea 06/15/18 03/26/24 Rx Lactobacillus acidophilus 1 tab PO DAILY 07/14/21 03/26/24 History [Acidophilus] magnesium 1 tab PO DAILY 07/14/21 03/26/24 History multivitamin 1 tab PO DAILY 07/14/21 03/26/24 History omega-3 fatty acids [Fish Oil 1 cap PO DAILY 07/14/21 03/26/24 History Concentrate] Free Style Raissa 2 #2 ea 05/12/22 03/26/24 Rx atorvastatin 10 mg tablet 10 mg PO BEDTIME #90 tabs 09/27/23 07/17/24 Rx metformin 500 mg tablet,extended 1,000 mg (2 x 500 mg) PO BID #360 09/27/23 07/17/24 Rx release 24 hr tabs citalopram 20 mg tablet 30 mg (1.5 x 20 mg) PO DAILY #135 12/26/23 03/26/24 Rx tabs levonorgestrel 0.15 mg-ethinyl 1 tab PO .COMPLEX #112 tabs 03/26/24 03/26/24 Rx estradiol 0.03 mg tablet (Levora-28) lisinopril 10 mg tablet 10 mg PO DAILY #90 tabs 05/29/24 07/17/24 Rx sodium,potassium,mag sulfates 17.5 See Rx Instructions PO .COMPLEX 06/04/24 Rx gram-3.13 gram-1.6 gram oral soln #354 mL (Suprep Bowel Prep Kit) semaglutide 0.25 mg or 0.5 mg (2 0.5 mg (0.736 mL) SUBCUT QWEEK #3 06/12/24 07/17/24 Rx mg/3 mL) subcutaneous pen injector mL flash glucose sensor (FreeStyle #6 ea 07/10/24 Rx Raissa 2 Sensor kit) Allergies Allergy/AdvReac Type Severity Reaction Status Date / Time clindamycin [CLINDAMYCIN] Allergy Intermediate Rash Verified 07/17/24 07:17 nickel Allergy Intermediate skin Verified 07/17/24 07:17 irritation sulfamethoxazole AdvReac Mild Vomiting Verified 07/17/24 07:17 [From ] trimethoprim [From ] AdvReac Unknown Vomiting Verified 07/17/24 07:17 copper AdvReac Skin Verified 07/17/24 07:17 itches, color change upon contact Exam Vital Signs (past 8 hours): - 07/17/24 07:14 Temperature 96.9 F L Pulse Rate 93 H Respiratory Rate 17 Blood Pressure 111/68 Pulse Oximetry 95 Oxygen Delivery Method Room Air Oxygen Delivery Method Room Air Const General: No acute distress Resp Effort & Inspection: normal respiratory effort Assessment & Plan Assessment and plan (1) Colon cancer screening: Status: Acute Plan We reviewed the risks and benefits of colonoscopy for colon cancer screening and she would like to proceed. Time-Based Coding :: [TOTAL MINUTES] spent with patient and on the chart (including review of chart, obtaining history, exam, reviewing outside data, placing orders, documenting exam and treatment plan, and counseling patient) on [DATE].
[2024-07-17 08:14] VITALS: BP 102/71; PULSE 83; RESP 20; TEMP 36.3; O2SAT 98
--- NOTE | 2024-07-17 08:15 | PM.OP.COLON ---
Operative Date/Time/Diagnoses Date of procedure: 07/17/24 Time of procedure: 08:15 Pre-op diagnosis: Colon cancer screening Post-op diagnosis: same Procedure & Clinicians Study performed: Colonoscopy Same procedure as scheduled: Yes Surgeon: Evaristo Wyman Procedure Notes Procedure in detail: Surgeon: Evaristo Wyman MD Anesthesia: Shu Williamson CRNA Procedure: The patient was brought to the endoscopy suite, placed in left lateral decubitus position. The patient was connected to monitoring devices. A time-out was performed. Sedation was administered. Once the patient was adequately sedated, a digital rectal exam was performed and was normal. The scope was then inserted and advanced to the cecum where the appendiceal orifice was identified and photographed. The scope was then slowly withdrawn over greater than 6 minutes. The mucosa was thoroughly inspected. There was a 5 mm polyp in the cecum removed with a cold snare. There was a 5 mm polyp in the rectum removed with a cold snare. The scope was retroflexed in the rectum. No other abnormalities were identified. The scope was straightened and removed. The patient was awakened and brought to recovery. Scope withdrawal time: 12 minutes Sedation time: 16 minutes EBL: 5 mL Findings: 5 mm polyps in the cecum and rectum Post-procedure Disposition: PACU
[2024-07-17 08:19] VITALS: BP 114/61; PULSE 88; RESP 13; O2SAT 99
[2024-07-17 08:24] VITALS: BP 106/72; PULSE 83; RESP 13; O2SAT 100
[2024-07-17 08:33] VITALS: BP 105/67; PULSE 76; RESP 12; O2SAT 100
== END 2024-07-17 08:35 | disposition home or self-care (01) ==
PROVIDERS: Family Provider Family Medicine; PCP Family Medicine; Referring Provider Surgery; Visit Provider Surgery
PROC: 0DJD8ZZ Inspection of Lower Intestinal Tract, Via Natural or Artificial Opening Endoscopic (ICD-10-PCS; CPT 45378; principal; 2024-07-17 07:45)
DX: Z12.11 Encounter for screening for malignant neoplasm of colon (principal); D12.8 Benign neoplasm of rectum; D12.0 Benign neoplasm of cecum
CPT/HCPCS: 45385; J2704

== ENCOUNTER → 2024-12-26 09:49 | Outpatient (CLI) | payer OTHER, SELFPAY | PROVIDERS: Family Provider Family Medicine; PCP Family Medicine; Visit Provider Physician Assistant | DX: J02.9 Acute pharyngitis, unspecified (principal) | CPT/HCPCS: 87070 ==

== ENCOUNTER → 2025-01-24 15:31 | Outpatient (CLI) | payer OTHER, SELFPAY ==
--- NOTE | 2025-01-24 15:33 | DI.RAD.S_ITS ---
PROCEDURE: XR CHEST 2V INDICATIONS: cough TECHNIQUE: 2 views of the chest were acquired. COMPARISON: None. FINDINGS: Surgical changes and devices: None. Lungs and pleura: Lungs are clear. No pleural effusions or pneumothorax. Peribronchial cuffing. Mediastinum: Mediastinal contours are normal. Heart size is normal. Bones and chest wall: No suspicious bony abnormalities. Soft tissues appear unremarkable. IMPRESSION: Peribronchial cuffing, typically indicating infectious or inflammatory bronchitis. Dictated by: Rafael Campuzano M.D. on 01/25/2025 at 11:52 Approved by: Rafael Campuzano M.D. on 01/25/2025 at 11:52
== END ==
PROVIDERS: Family Provider Family Medicine; PCP Family Medicine; Referring Provider Nurse Practitioner Family; Visit Provider Nurse Practitioner Family
DX: R05.9 Cough, unspecified (principal)
CPT/HCPCS: 71046

== ENCOUNTER → 2025-04-24 06:41 | Outpatient (CLI) | payer OTHER, SELFPAY ==
[2025-04-24 07:28] LABS: Add Manual Diff / Slide Review NO; Hematocrit 38.9 % (36-46); Hemoglobin 13.2 g/dL (12.0-16.0); Lymphocytes Absolute Auto 3500 /uL (1100-4500); Mean Corpuscular HGB Conc 33.9 % (30-36); Mean Corpuscular Hemoglobin 30.3 PG (26-34); Mean Corpuscular Volume 89.3 fL (80-100); Platelet Count 298 X10^3/uL (150-400)
[2025-04-24 07:41] LABS: Hemoglobin A1C% w Est Avg Glu 6.2 % (4.0-6.0)
[2025-04-24 07:56] LABS: Alanine Aminotransferase 22 IU/L (<35); Albumin 3.9 g/dL (3.5-5.0); Albumin Globulin Ratio 1.3 (1.0-2.8); Alkaline Phosphatase 53 U/L (38-126); Blood Urea Nitrogen 13 mg/dL (7-17); Calcium 9.4 mg/dL (8.4-10.2); Carbon Dioxide 22 mmol/L (22-32); Chloride 109 mmol/L (98-107); Cholesterol 151 mg/dL (140-199); Estimated Glomerular Filt Rate > 60 mL/min (>60); Globulin 3.0 g/dL (1.7-4.1); Glucose 132 mg/dL (70-99); HDL Cholesterol 50 mg/dL (40-60); HEMOLYSIS < 15 (0-50); Potassium 4.6 mmol/L (3.4-5.1); Sodium 139 mmol/L (137-145); Total Protein 6.9 g/dL (6.3-8.2); Triglycerides 143 mg/dL (35-150)
== END ==
PROVIDERS: Family Provider Family Medicine; PCP Family Medicine; Referring Provider Family Medicine; Visit Provider Family Medicine
DX: E78.00 Pure hypercholesterolemia, unspecified (principal); E11.9 Type 2 diabetes mellitus without complications; M25.562 Pain in left knee; G89.29 Other chronic pain; E66.01 Morbid (severe) obesity due to excess calories
CPT/HCPCS: 36415; 80053; 80061; 83036; 85025